=== PATIENT | female | born 1950 | race Caucasian/White ===

== ENCOUNTER → 2018-10-14 10:53 | Outpatient (CLI) | payer MEDICARE, OTHER, SELFPAY ==
--- NOTE | 2018-10-14 | DI.MG.S_ITS ---
BILATERAL DIGITAL SCREENING MAMMOGRAM 3D/2D WITH CAD: 10/14/2018 CLINICAL: Routine screening. Comparison is made to exams dated: 09/29/2017 mammogram, 09/20/2016 mammogram, and 09/18/2015 mammogram - [facility]. There are scattered fibroglandular elements in both breasts. Current study was also evaluated with a Computer Aided Detection (CAD) system. No significant masses, calcifications, or other findings are seen in either breast. There has been no significant interval change. IMPRESSION: NEGATIVE There is no mammographic evidence of malignancy. A 1 year screening mammogram is recommended. This exam was interpreted at Station ID: [id number]. NOTE: For mammograms, a report in lay terms will be sent to the patient. Approximately 15% of breast malignancies will not be visualized mammographically. In the management of a palpable breast mass, a negative mammogram must not discourage biopsy of a clinically suspicious lesion. Electronically Signed By: Smita gray/sudhir:10/16/2018 15:59:47 letter sent: Normal Exam ACR BI-RADS Category 1: Negative 3341F
== END ==
PROVIDERS: PCP Physician Assistant; Visit Provider Physician Assistant
DX: Z12.31 Encounter for screening mammogram for malignant neoplasm of breast (principal)
CPT/HCPCS: 77063; 77067

== ENCOUNTER → 2019-10-26 14:56 | Outpatient (CLI) | payer MEDICARE, OTHER, SELFPAY ==
--- NOTE | 2019-10-26 | DI.MG.S_ITS ---
BILATERAL DIGITAL SCREENING MAMMOGRAM 3D/2D WITH CAD: 10/26/2019 CLINICAL: Routine screening. Comparison is made to exams dated: 10/14/2018 mammogram, 09/29/2017 mammogram, and 09/20/2016 mammogram - [facility]. There are scattered fibroglandular elements in both breasts. Current study was also evaluated with a Computer Aided Detection (CAD) system. No significant masses, calcifications, or other findings are seen in either breast. There has been no significant interval change. IMPRESSION: NEGATIVE There is no mammographic evidence of malignancy. A 1 year screening mammogram is recommended. This exam was interpreted at Station ID: [id number]. NOTE: For mammograms, a report in lay terms will be sent to the patient. Approximately 15% of breast malignancies will not be visualized mammographically. In the management of a palpable breast mass, a negative mammogram must not discourage biopsy of a clinically suspicious lesion. Electronically Signed By: Vern Uribe M.D. at/sudhir:10/26/2019 15:48:11 letter sent: Normal Exam ACR BI-RADS Category 1: Negative 3341F
== END ==
PROVIDERS: PCP Physician Assistant; Visit Provider Physician Assistant
DX: Z12.31 Encounter for screening mammogram for malignant neoplasm of breast (principal)
CPT/HCPCS: 77063; 77067

== ENCOUNTER 2020-08-11 12:33 | Emergency (ER) | payer MEDICARE, OTHER, SELFPAY ==
[2020-08-11 12:39] VITALS: BP 149/65; PULSE 95; RESP 16; TEMP 37.3; O2SAT 96; BMI 30.1
--- NOTE | 2020-08-11 13:19 | ED.FEVER ---
HPI - Fever <Andra MaxwellSHAHRZAD - Last Filed: 08/11/20 20:39> General Chief Complaint: Fever Stated Complaint: Fever, Tired, Chills, Night Sweats Time Seen by Provider: 08/11/20 12:57 Source: patient Mode of arrival: Ambulatory History of Present Illness HPI Narrative: 70-year-old female with a history of asthma, hypertension, depression, and spinal fusion presents emergency department complaining of an intermittent low-grade fever over the past 24 hours. 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 She states her temperature has been 99.1-99.8F, today it was 100.0F. She reports occasional sweating and increased fatigue. She denies any cough, shortness of breath, rhinorrhea, sore throat, nausea, vomiting, diarrhea, dysuria, flank pain, or any other concerns. Related Data Home Medications Medication Instructions Recorded Confirmed ASCORBIC ACID (VITAMIN C 1,000 mg PO Q DAY #0 05/04/12 08/01/19 (CHEWABLE)) Magnesium/Pyridoxine (#MAGNESIUM & 1 tab PO Q DAY #0 05/04/12 08/01/19 B6 250 MG-125 MG) VIT WITH MINERALS (#D3PLUS) 1,000 cap PO Q DAY #0 05/04/12 08/01/19 lisinopril 20 mg PO QDAY #0 02/21/17 08/01/19 VITAMIN D (Vitamin D3) 4,000 u PO QDAY #0 05/16/17 08/01/19 [FLAX SEED OIL] 1,400 mg PO QDAY #0 05/16/17 08/01/19 albuterol sulfate [Proventil HFA] 2 puff INH PRN #0 05/16/17 08/01/19 calcium citrate-vitamin D3 1 tab PO QDAY #0 05/16/17 08/01/19 [Citracal + D Maximum] cetirizine 10 mg PO QDAY #0 05/16/17 08/01/19 clobetasol 0.05 % TOPICAL TID #0 05/16/17 08/01/19 clobetasol-emollient 1 rosalba TOPICAL BID PRN #0 05/16/17 08/01/19 latanoprost 1 drp OU HS #0 05/16/17 08/01/19 ranitidine HCl [Zantac] 150 mg PO QDAY #0 05/16/17 08/01/19 triamcinolone acetonide 1 rosalba TOPICAL BID PRN #0 05/16/17 08/01/19 vitamin B complex [B 1 tab PO QDAY #0 05/16/17 08/01/19 Complex-Vitamin B12] Previous Rx's Medication Instructions Recorded fluoxetine 20 mg PO Q DAY #30 06/19/12 CHOLESTYRAMINE (#CHOLESTYRAMINE) 4 gm PO Q DAY #378 10/16/12 alprazolam 0.25 mg PO Q8HP #90 01/19/13 estradiol 1 mg PO QDAY #90 06/12/13 oxycodone 1 - 2 tab PO Q4HP PRN #45 tab 05/27/17 Allergies Allergy/AdvReac Type Severity Reaction Status Date / Time benzocaine [BENZOCAINE] Allergy Severe (DENTAL) Verified 08/01/19 15:38 GUMS TURNED BLACK AND SLOUGHED OFF Review of Systems <SHAHRZAD Dela Cruz - Last Filed: 08/11/20 20:39> Review of Systems Narrative: REVIEW OF SYSTEMS: GENERAL: Reports fatigue and low-grade ?fevers ?, see HPI. HENT: No head trauma or hearing loss. EYES: No loss of vision, double vision, eye pain, irritation or discharge. CARDIOVASCULAR: No chest pain or syncope. RESPIRATORY: No shortness of breath. GASTROINTESTINAL: No nausea, vomiting, diarrhea, or constipation. MUSCULOSKELETAL: No weakness or injury. INTEGUMENTARY: No rash, lesions, or pruritus. NEURO: No memory loss, or confusion. Patient History <SHAHRZAD Dela Cruz - Last Filed: 08/11/20 20:39> Medical History Cough (Acute) Social History Smoking Status: Never smoker Smoking Status: Never smoker alcohol intake frequency: 0-2 drinks per day Substance Use Type: does not use Exam <SHAHRZAD Dela Cruz - Last Filed: 08/11/20 20:39> Initial Vital Signs Initial Vital Signs: Vital Signs Temperature 99.1 F 08/11/20 12:39 Pulse Rate 95 H 08/11/20 12:39 Respiratory Rate 16 08/11/20 12:39 Blood Pressure 149/65 H 08/11/20 12:39 Pulse Oximetry 96 08/11/20 12:39 PHYSICAL EXAMINATION: GENERAL: Well groomed, alert, and cooperative. Well-appearing 72-year-old female, answers questions appropriately and promptly.. HENT: Normocephalic, atraumatic. EYES: Conjunctiva pink, sclera white, no periorbital swelling. No discharge. CHEST: Normal to inspection and without deformities. CARDIOVASCULAR: S1 and S2 sounds normal. Regular rate and rhythm, no murmurs, clicks, or bruits. RESPIRATORY: Normal respiratory rate, trachea midline, airway patent. No stridor, nasal flaring or accessory muscle use. Able to speak in full sentences. Lungs are clear in all bang without wheeze, rhonchi, or crackles. MUSCULOSKELETAL: Normal gait and coordination. Equal tone and mass bilaterally. EXTREMITIES: Moves all extremities. SKIN: Warm, dry, soft, appropriate color for ethnicity. No lesions, rashes, or wounds to visualized areas. NEURO: Alert and Oriented X 3. Good coordination. No ataxia or cognitive issues. PSYCH: Appropriate affect and mood. <Martir Sanders MD - Last Filed: 08/12/20 18:06> Initial Vital Signs Initial Vital Signs: Vital Signs Temperature 99.1 F 08/11/20 12:39 Pulse Rate 95 H 08/11/20 12:39 Respiratory Rate 16 08/11/20 12:39 Blood Pressure 149/65 H 08/11/20 12:39 Pulse Oximetry 96 08/11/20 12:39 Course <SHAHRZAD Dela Cruz - Last Filed: 08/11/20 20:39> Orders Ordered: ED Orders 08/11/20 13:30 COVID19 -ED/INPAT/OR/L&D Stat Influenza A & B (PCR) Stat Vital Signs Vital signs: Vital Signs - 8 hr 08/11/20 12:39 08/11/20 15:04 Temperature 99.1 F Pulse Rate 95 H 85 Respiratory Rate 16 15 Blood Pressure 149/65 H 141/72 H Pulse Oximetry 96 99 <Martir Sanders MD - Last Filed: 08/12/20 18:06> Orders Ordered: ED Orders 08/11/20 13:30 COVID19 -ED/INPAT/OR/L&D Stat Influenza A & B (PCR) Stat Vital Signs Vital signs: Vital Signs - 8 hr 08/11/20 12:39 08/11/20 15:04 Temperature 99.1 F Pulse Rate 95 H 85 Respiratory Rate 16 15 Blood Pressure 149/65 H 141/72 H Pulse Oximetry 96 99 MDM - Fever <Andra SHAHRZAD Maxwell - Last Filed: 08/11/20 20:39> Medical Records Attestation: I reviewed the patient's medical records. Lab Data Attestation: I reviewed the patient's lab results. Labs: Lab Results 08/11/20 08/11/20 Range/Units 13:30 13:30 COVID-19 PCR Negative (Negative) Influenza A (RT-PCR) Flu a negative (NEGATIVE) Influenza B (RT-PCR) Flu b negative (NEGATIVE) Urine Dip Bedside Urine Glucose Negative Bedside Urine Bilirubin - Negative Bedside Urine Ketone - Negative Urine Specific [place] 1.030 Bedside Urine Occult Blood +/- Bedside Urine pH 6.0 Bedside Urine Protein - Negative Bedside Urine Urobilinogen - Negative Bedside Urine Nitrite - Negative Bedside Urine Leukocytes - Negative Esterase MDM Narrative Medical decision making narrative: 70-year-old female presenting to the emergency department for upper respiratory symptoms, reports of fever, and chills. I suspect patient's symptoms are most likely caused by upper respiratory tract infection. Less likely COVID or or influenza due to negative swabs. POC urine without any leukocytes, blood, or nitrates. Patient is well-appearing, hemodynamically stable, non tachycardic, afebrile, and oxygen then saturation is within normal limits. Lung sounds clear, less likely pneumonia due to these findings. Patient was encouraged to drink plenty of fluids and contact work about recent illness. Return precautions given for new or worsening symptoms. She agreed to plan of care verbalized understanding. <Martir Sanders MD - Last Filed: 08/12/20 18:06> Lab Data Labs: Lab Results 08/11/20 08/11/20 Range/Units 13:30 13:30 COVID-19 PCR Negative (Negative) Influenza A (RT-PCR) Flu a negative (NEGATIVE) Influenza B (RT-PCR) Flu b negative (NEGATIVE) Urine Dip Bedside Urine Glucose Negative Bedside Urine Bilirubin - Negative Bedside Urine Ketone - Negative Urine Specific [place] 1.030 Bedside Urine Occult Blood +/- Bedside Urine pH 6.0 Bedside Urine Protein - Negative Bedside Urine Urobilinogen - Negative Bedside Urine Nitrite - Negative Bedside Urine Leukocytes - Negative Esterase Discharge Plan Departure Patient Disposition: Home Clinical Impression: Upper respiratory infection Qualifiers: URI type: unspecified viral URI Qualified Code(s): J06.9 - Acute upper respiratory infection, unspecified Discharge Date/Time: 08/11/20 15:04 Instructions: DI for Viral Upper Respiratory Infection -- Adult Activity Restrictions/Additional Instructions: Thank you for entrusting me with your care today. As discussed, your COVID-19, influenza and urine test are negative for any signs of infection. I suspect this is most likely a viral infection. Take Tylenol as needed for pain and fever, drink plenty of fluid. Follow-up with your PCP in the next week if symptoms continue. Return emergency department for any new or worsening symptoms. Prescriptions: No Action VIT WITH MINERALS (#D3PLUS) 1,000 cap PO Q DAY Qty: 0 RF: 0 ASCORBIC ACID (VITAMIN C (CHEWABLE)) 1,000 mg PO Q DAY Qty: 0 RF: 0 Magnesium/Pyridoxine (#MAGNESIUM & B6 250 MG-125 MG) 1 tab PO Q DAY Qty: 0 RF: 0 fluoxetine 20 MG tablet 20 mg PO Q DAY Qty: 30 RF: 11 CHOLESTYRAMINE (#CHOLESTYRAMINE) 4 gm PO Q DAY Qty: 378 RF: 11 alprazolam 0.25 MG tablet 0.25 mg PO Q8HP Qty: 90 RF: 0 estradiol 1 MG tablet 1 mg PO QDAY Qty: 90 RF: 3 lisinopril 20 MG tablet 20 mg PO QDAY Qty: 0 RF: 0 albuterol sulfate [Proventil HFA] 90 MCG/PUFF HFA aerosol inhaler 2 puff INH PRNQty: 0 RF: 0 vitamin B complex [B Complex-Vitamin B12] 1 EACH tablet 1 tab PO QDAY Qty: 0 RF: 0 calcium citrate-vitamin D3 [Citracal + D Maximum] 1,500 MG/250 IU tablet 1 tab PO QDAY Qty: 0 RF: 0 VITAMIN D (Vitamin D3) 4,000 u PO QDAY Qty: 0 RF: 0 [FLAX SEED OIL] 1,400 mg PO QDAY Qty: 0 RF: 0 cetirizine 10 MG tablet 10 mg PO QDAY Qty: 0 RF: 0 ranitidine HCl [Zantac] 150 MG tablet 150 mg PO QDAY Qty: 0 RF: 0 triamcinolone acetonide 0.1 % cream 1 rosalba Topical BID PRNQty: 0 RF: 0 clobetasol-emollient 0.05 % cream 1 rosalba Topical BID PRNQty: 0 RF: 0 clobetasol 0.05 % solution 0.05 % Topical TID Qty: 0 RF: 0 latanoprost 0.005 % drops 1 drp OU HS Qty: 0 RF: 0 oxycodone 5 MG tablet 1 - 2 tab PO Q4HP PRNQty: 45 RF: 0 Referrals: Susan Stanford PA-C [Primary Care Provider] - <Martir Sanders MD - Last Filed: 08/12/20 18:06> Cosign ED Attending Cosignature Attestation: I was immediately available in the department for consultation. This documentation has been reviewed and I agree with assessment and plan. Supervised by Martir Sanders MD
[2020-08-11 14:10] LABS: Influenza A - CEPHEID Flu A NEGATIVE (NEGATIVE); Influenza B - CEPHEID Flu B NEGATIVE (NEGATIVE)
[2020-08-11 14:31] LABS: COVID19 -Nasal RAPID Negative (Negative)
[2020-08-11 15:04] VITALS: BP 141/72; PULSE 85; RESP 15; O2SAT 99
== END 2020-08-11 15:04 | disposition home or self-care (01) ==
PROVIDERS: Emergency Provider Nurse Practitioner; PCP Physician Assistant
DX: J06.9 Acute upper respiratory infection, unspecified (principal); R50.9 Fever, unspecified
CPT/HCPCS: 81003; 87502; 87635; 99282

== ENCOUNTER → 2020-08-19 11:05 | Outpatient (CLI) | payer MEDICARE, OTHER, SELFPAY ==
--- NOTE | 2020-08-19 | DI.RAD.S_ITS ---
PROCEDURE: XR LUMBAR SPINE 2-3V INDICATIONS: LUMBAR RADICULOPATHY, NUMBNESS OF RIGHT FOOT TECHNIQUE: 3 views of the lumbar spine were acquired. COMPARISON: None. FINDINGS: Bones: 5 [id number] vertebrae are present. There is abnormal bony alignment at L5-S1 where grade 2 anterolisthesis of L5 is present, associated with bilateral pars interarticularis defects at the L5 level. Additionally, there is a [id number] degree of convex leftward scoliosis centered at the middle 3rd of the lumbosacral spine, calculated by Jonas angle technique at 14.4 degrees. No vertebral body compression fractures. No suspicious bony lesions. Degenerative disc disease on the lateral view is quite severe at L5-S1 associated with chronic subluxation and facet osteoarthritis bilaterally. Soft tissues: Overlying bowel gas pattern is normal. No suspicious soft tissue calcifications. 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 Additionally, 14.4 degree convex leftward scoliosis is present centered on the L3 level of the LS spine. No trauma found. Dictated by: Kuldip Sarkar M.D. on 08/19/2020 at 12:32 Approved by: Kuldip Sarkar M.D. on 08/19/2020 at 12:34
== END ==
PROVIDERS: PCP Physician Assistant; Referring Provider Physician Assistant; Visit Provider Physician Assistant
DX: M51.17 Intervertebral disc disorders with radiculopathy, lumbosacral region (principal); M47.27 Other spondylosis with radiculopathy, lumbosacral region; M43.17 Spondylolisthesis, lumbosacral region; M41.87 Other forms of scoliosis, lumbosacral region; R20.0 Anesthesia of skin; E03.9 Hypothyroidism, unspecified; D47.2 Monoclonal gammopathy; R73.01 Impaired fasting glucose; E53.8 Deficiency of other specified B group vitamins; I10 Essential (primary) hypertension; E78.5 Hyperlipidemia, unspecified
CPT/HCPCS: 72100; 80053; 80061; 82607; 83036; 84155; 84165; 84443; 85025

== ENCOUNTER → 2020-08-19 15:31 | Outpatient (ROUT) | payer MEDICARE, OTHER, SELFPAY ==
[2020-08-19 15:55] LABS: Add Manual Diff / Slide Review NO; Basophils Absolute Auto 100 /uL (0-100); Basophils Percent Auto 0.8 % (0-2); Eosinophils Absolute Auto 200 /uL (0-450); Eosinophils Percent Auto 2.8 % (2-4); Hematocrit 38.8 % (36-46); Hemoglobin 13.1 g/dL (12.0-16.0); Lymphocytes Absolute Auto 3100 /uL (1100-4500); Lymphocytes Percent Auto 43.8 % (25-40); Mean Corpuscular HGB Conc 33.8 % (30-36); Mean Corpuscular Hemoglobin 32.4 PG (26-34); Monocytes Absolute Auto 600 /uL (0-900); Monocytes Percent Auto 8.9 % (3-14); Neutrophils Absolute Auto 3100 /uL (1500-7000); Neutrophils Percent Auto 43.7 % (50-75); Platelet Count 232 X10^3/uL (150-400); Red Blood Cell Count 4.04 X10^6/uL (4.0-5.2); Red Cell Distribution Width 13.2 % (11.6-14.8)
[2020-08-19 15:57] LABS: Hemoglobin A1C% w Est Avg Glu 5.6 % (4.0-6.0)
[2020-08-19 16:00] LABS: Alanine Aminotransferase 36 IU/L (<35); Albumin 4.3 g/dL (3.5-5.0); Albumin Globulin Ratio 1.5 (1.0-2.8); Alkaline Phosphatase 108 U/L (38-126); Aspartate Aminotransferase 81 IU/L (14-36); BUN Creatinine Ratio 33.9 (6-22); Bilirubin Total 0.4 mg/dL (0.2-1.3); Blood Urea Nitrogen 19 mg/dL (7-17); Calcium 9.4 mg/dL (8.4-10.2); Carbon Dioxide 29 mmol/L (22-32); Chloride 99 mmol/L (98-107); Cholesterol 190 mg/dL (140-199); Estimated Glomerular Filt Rate > 60.0 mL/min (>60); Globulin 2.8 g/dL (1.7-4.1); Glucose 103 mg/dL (80-110); HEMOLYSIS < 15 (0-50); Potassium 4.7 mmol/L (3.4-5.1); Sodium 134 mmol/L (137-145); Total Protein 7.1 g/dL (6.3-8.2); Triglycerides 224 mg/dL (35-150)
[2020-08-19 16:08] LABS: HDL Cholesterol 114 mg/dL (40-60); LDL Cholesterol Calculated 31 mg/dL (<100)
[2020-08-19 16:28] LABS: TSH w/ Reflex to FT4 1.17 uIU/mL (0.47-4.68)
[2020-08-19 16:44] LABS: Vitamin B12 550 pg/mL (239-931)
[2020-08-20 15:09] LABS: Albumin 3.8 g/dL (2.9-4.4); Alpha-1-Globulin 0.3 g/dL (0.0-0.4); Alpha-2-Globulin 0.8 g/dL (0.4-1.0); Gamma Globulin 0.9 g/dL (0.4-1.8); Globulin Total 2.9 g/dL (2.2-3.9); Protein, Total 6.7 g/dL (6.0-8.5)
== END ==
PROVIDERS: PCP Physician Assistant; Visit Provider Physician Assistant
DX: E03.9 Hypothyroidism, unspecified (principal); D47.2 Monoclonal gammopathy; R73.01 Impaired fasting glucose; E53.8 Deficiency of other specified B group vitamins; I10 Essential (primary) hypertension; E78.5 Hyperlipidemia, unspecified
CPT/HCPCS: 80053; 80061; 82607; 83036; 84155; 84165; 84443; 85025

== ENCOUNTER → 2020-10-27 15:47 | Outpatient (CLI) | payer MEDICARE, OTHER, SELFPAY ==
--- NOTE | 2020-10-27 | DI.MG.S_ITS ---
BILATERAL DIGITAL SCREENING MAMMOGRAM 3D/2D WITH CAD: 10/27/2020 CLINICAL: Routine screening. Comparison is made to exams dated: 10/26/2019 mammogram, 10/14/2018 mammogram, and 09/29/2017 mammogram - [facility]. There are scattered fibroglandular elements in both breasts. Current study was also evaluated with a Computer Aided Detection (CAD) system. No significant masses, calcifications, or other findings are seen in either breast. There has been no significant interval change. IMPRESSION: NEGATIVE There is no mammographic evidence of malignancy. A 1 year screening mammogram is recommended. This exam was interpreted at Station ID: [id number]. NOTE: For mammograms, a report in lay terms will be sent to the patient. Approximately 15% of breast malignancies will not be visualized mammographically. In the management of a palpable breast mass, a negative mammogram must not discourage biopsy of a clinically suspicious lesion. Electronically Signed By: Enrique horvath/sudhir:10/27/2020 17:54:41 letter sent: Normal Exam ACR BI-RADS Category 1: Negative 3341F
== END ==
PROVIDERS: PCP Physician Assistant; Referring Provider Physician Assistant; Visit Provider Physician Assistant
DX: Z12.31 Encounter for screening mammogram for malignant neoplasm of breast (principal)
CPT/HCPCS: 77063; 77067

== ENCOUNTER → 2020-12-05 10:16 | Outpatient (CLI) | payer MEDICARE, OTHER, SELFPAY ==
[2020-12-05] MEDS: COVID-19 VACC #1, MRNA(MOD) 100 MCG/0.5 ML VIAL IM (10:23)
== END ==
PROVIDERS: PCP Physician Assistant; Visit Provider Internal Medicine
DX: Z23 Encounter for immunization (principal)
CPT/HCPCS: 0011A; 91301

== ENCOUNTER → 2021-01-01 12:52 | Outpatient (CLI) | payer MEDICARE, OTHER, SELFPAY ==
[2021-01-01] MEDS: COVID-19 VACC #2, MRNA(MOD) 100 MCG/0.5 ML VIAL IM (12:56)
== END ==
PROVIDERS: PCP Physician Assistant; Visit Provider Internal Medicine
DX: Z23 Encounter for immunization (principal)
CPT/HCPCS: 0012A; 91301

== ENCOUNTER → 2021-03-31 20:08 | Outpatient (ROUT) | payer MEDICARE, OTHER, SELFPAY ==
[2021-03-31 20:31] LABS: Add Manual Diff / Slide Review NO; Basophils Absolute Auto 0 /uL (0-100); Basophils Percent Auto 0.5 % (0-2); Eosinophils Absolute Auto 500 /uL (0-450); Eosinophils Percent Auto 5.6 % (2-4); Hematocrit 38.8 % (36-46); Hemoglobin 12.8 g/dL (12.0-16.0); Lymphocytes Absolute Auto 2200 /uL (1100-4500); Lymphocytes Percent Auto 26.6 % (25-40); Mean Corpuscular HGB Conc 32.9 % (30-36); Mean Corpuscular Hemoglobin 32.2 PG (26-34); Mean Corpuscular Volume 97.8 fL (80-100); Monocytes Absolute Auto 600 /uL (0-900); Monocytes Percent Auto 6.8 % (3-14); Neutrophils Absolute Auto 5000 /uL (1500-7000); Neutrophils Percent Auto 60.5 % (50-75); Platelet Count 212 X10^3/uL (150-400); Red Blood Cell Count 3.97 X10^6/uL (4.0-5.2); Red Cell Distribution Width 13.1 % (11.6-14.8); White Blood Cell Count 8.2 X10^3/uL (4.5-11.0)
[2021-03-31 20:37] LABS: Alanine Aminotransferase 31 IU/L (<35); Albumin 4.3 g/dL (3.5-5.0); Albumin Globulin Ratio 1.6 (1.0-2.8); Alkaline Phosphatase 113 U/L (38-126); Aspartate Aminotransferase 81 IU/L (14-36); Bilirubin Total 0.5 mg/dL (0.2-1.3); Blood Urea Nitrogen 17 mg/dL (7-17); Calcium 9.6 mg/dL (8.4-10.2); Carbon Dioxide 27 mmol/L (22-32); Chloride 99 mmol/L (98-107); Cholesterol 213 mg/dL (140-199); Estimated Glomerular Filt Rate > 60.0 mL/min (>60); Globulin 2.7 g/dL (1.7-4.1); Glucose 96 mg/dL (80-110); HEMOLYSIS < 15 (0-50); Potassium 4.4 mmol/L (3.4-5.1); Sodium 134 mmol/L (137-145); Triglycerides 208 mg/dL (35-150)
[2021-03-31 20:50] LABS: HDL Cholesterol 146 mg/dL (40-60); LDL Cholesterol Calculated 25 mg/dL (<100)
== END ==
PROVIDERS: PCP Physician Assistant; Visit Provider Physician Assistant
DX: Z01.818 Encounter for other preprocedural examination (principal); I10 Essential (primary) hypertension; E78.5 Hyperlipidemia, unspecified
CPT/HCPCS: 80053; 80061; 85025

== ENCOUNTER 2021-05-11 00:16 | Emergency (ER) | payer MEDICARE, OTHER, SELFPAY ==
[2021-05-11 00:20] VITALS: BP 183/98; PULSE 87; RESP 20; TEMP 36.7; O2SAT 100
--- NOTE | 2021-05-11 01:46 | ED.BACK ---
HPI - Back Pain/Injury General Chief Complaint: Back Pain/Injury Stated Complaint: Back Pain Time Seen by Provider: 05/11/21 00:26 Source: patient History of Present Illness HPI Narrative: The patient underwent L5-L1 laminectomy 6 days ago. She was initially on oxycodone, and wean down to ibuprofen. She has since then required oxycodone again. She comes in by EMS because of left low back pain radiating to the left lateral leg. This seems a started after prolonged car trip about 3 days ago. She has no edema in the lower extremities, no chest pain or dyspnea. She describes the pain in her left leg as a zing. She has previously had right leg numbness/weakness. She denies numbness in the left lateral foot and the left great toe. She has no abdominal pain, no nausea, vomiting diarrhea. She has no urinary complaints. Related Data Home Medications Medication Instructions Recorded Confirmed ASCORBIC ACID (VITAMIN C 1,000 mg PO Q DAY #0 05/04/12 08/01/19 (CHEWABLE)) Magnesium/Pyridoxine (#MAGNESIUM & 1 tab PO Q DAY #0 05/04/12 08/01/19 B6 250 MG-125 MG) VIT WITH MINERALS (#D3PLUS) 1,000 cap PO Q DAY #0 05/04/12 08/01/19 lisinopril 20 mg tablet 20 mg PO QDAY #0 02/21/17 08/01/19 VITAMIN D (Vitamin D3) 4,000 u PO QDAY #0 05/16/17 08/01/19 [FLAX SEED OIL] 1,400 mg PO QDAY #0 05/16/17 08/01/19 albuterol sulfate 90 mcg/actuation 2 puff INH PRN #0 05/16/17 08/01/19 aerosol inhaler (Proventil HFA) calcium citrate 315 mg 1 tab PO QDAY #0 05/16/17 08/01/19 calcium-vitamin D3 6.25 mcg (250 unit) tablet (Citracal + Vitamin D Maximum) cetirizine 10 mg tablet 10 mg PO QDAY #0 05/16/17 08/01/19 clobetasol 0.05 % scalp solution 0.05 % TOPICAL TID #0 05/16/17 08/01/19 clobetasol-emollient 0.05 % 1 rosalba TOPICAL BID PRN #0 05/16/17 08/01/19 topical cream latanoprost 0.005 % eye drops 1 drp OU HS #0 05/16/17 08/01/19 ranitidine HCl 150 mg tablet 150 mg PO QDAY #0 05/16/17 08/01/19 (Zantac) triamcinolone acetonide 0.1 % 1 rosalba TOPICAL BID PRN #0 05/16/17 08/01/19 topical cream vitamin B complex (B 1 tab PO QDAY #0 05/16/17 08/01/19 Complex-Vitamin B12) Previous Rx's Medication Instructions Recorded fluoxetine 20 mg tablet 20 mg PO Q DAY #30 06/19/12 CHOLESTYRAMINE (#CHOLESTYRAMINE) 4 gm PO Q DAY #378 10/16/12 alprazolam 0.25 mg tablet 0.25 mg PO Q8HP #90 01/19/13 estradiol 1 mg tablet 1 mg PO QDAY #90 06/12/13 oxycodone 5 mg tablet 1 - 2 tab PO Q4HP PRN #45 tab 05/27/17 gabapentin 100 mg capsule 100 mg PO TID #60 cap 05/11/21 Allergies Allergy/AdvReac Type Severity Reaction Status Date / Time benzocaine [BENZOCAINE] Allergy Severe (DENTAL) Verified 08/01/19 15:38 GUMS TURNED BLACK AND SLOUGHED OFF Review of Systems Constitutional Constitutional: Reports as per HPI, Denies body ache(s) and Denies fever(s) Cardiovascular Cardiovascular: Denies chest pain and Denies dyspnea Respiratory Respiratory: Denies cough and Denies dyspnea Gastrointestinal Gastrointestinal: Denies abdominal pain, Reports diarrhea, Denies nausea and Denies vomiting Genitourinary Genitourinary: Denies dysuria, Denies urinary incontinence and Denies urinary urgency Musculoskeletal Musculoskeletal: Reports as per HPI Neurologic Neurologic: Reports as per HPI, Denies confusion and Denies memory loss Psychiatric Psychiatric: Denies confusion, Denies depression and Denies memory loss Patient History Medical History (Updated 05/11/21 @ 03:07 by Moreno Skaggs MD) Cough Social History Smoking Status: Never smoker Smoking Status: Never smoker alcohol intake frequency: 0-2 drinks per day Substance Use Type: does not use Exam Initial Vital Signs Initial Vital Signs: Vital Signs Temperature 98.0 F 05/11/21 00:20 Pulse Rate 87 05/11/21 00:20 Respiratory Rate 20 05/11/21 00:20 Blood Pressure 183/98 H 05/11/21 00:20 Pulse Oximetry 100 05/11/21 00:20 Const General: cooperative, healthy appearing and comfortable [facility] Head: normocephalic and atraumatic Resp Auscultation: clear to auscultation bilaterally Cardio Rate: regular rate Rhythm: regular rhythm Heart Sounds: S1 normal, S2 normal and no murmurs GI Other: Obese, soft and nontender. Ecchymoses around the left inguinal incision site. The wound is healing well. There is slight edema, no erythema and no warmth. Ecchymosis extends around the left flank. Back/Spine/Pelvis Other: There is a left lumbar incision site. The wound is healing well, local ecchymosis. Mild edema. No induration or fluctuance. No erythema or warmth. Skin General: no rashes or lesions noted (Other than noted above) Neuro General: patient alert, patient awake, patient oriented x3 and no focal motor deficits Extrem Other: Motor exam lower extremities is normal. There is no weakness. She has a left L5 light touch deficit, particularly around the left ankle. Psych Mental Status: mental status grossly normal Course Course Course Narrative: The patient is postop laminectomy. There is ecchymoses around the wound sites, no evidence of infection. Symptoms suggest a left sciatica. NSAIDs can be utilized, I am avoiding prednisone due to her postop status. I will start her on gabapentin. She should recheck with her doctor this week. Vital Signs Vital signs: Vital Signs - 8 hr 05/11/21 00:20 Temperature 98.0 F Pulse Rate 87 Respiratory Rate 20 Blood Pressure 183/98 H Pulse Oximetry 100 Discharge Plan Departure Patient Disposition: Home Clinical Impression: Left sciatic nerve pain Instructions: DI for Sciatica Activity Restrictions/Additional Instructions: Continue using oxycodone and Motrin as necessary. Gabapentin 100 mg 3 times daily. Follow-up with your doctor in about 5 days. If you tolerating the gabapentin, your doctor will likely increase the dose if you have ongoing pain. Return to the ER as necessary. Prescriptions: New gabapentin 100 mg capsule 100 mg PO TID Qty: 60 RF: 0 No Action VIT WITH MINERALS (#D3PLUS) 1,000 cap PO Q DAY Qty: 0 RF: 0 ASCORBIC ACID (VITAMIN C (CHEWABLE)) 1,000 mg PO Q DAY Qty: 0 RF: 0 Magnesium/Pyridoxine (#MAGNESIUM & B6 250 MG-125 MG) 1 tab PO Q DAY Qty: 0 RF: 0 fluoxetine 20 MG tablet 20 mg PO Q DAY Qty: 30 RF: 11 CHOLESTYRAMINE (#CHOLESTYRAMINE) 4 gm PO Q DAY Qty: 378 RF: 11 alprazolam 0.25 MG tablet 0.25 mg PO Q8HP Qty: 90 RF: 0 estradiol 1 MG tablet 1 mg PO QDAY Qty: 90 RF: 3 lisinopril 20 MG tablet 20 mg PO QDAY Qty: 0 RF: 0 albuterol sulfate [Proventil HFA] 90 MCG/PUFF HFA aerosol inhaler 2 puff INH PRNQty: 0 RF: 0 vitamin B complex [B Complex-Vitamin B12] 1 EACH tablet 1 tab PO QDAY Qty: 0 RF: 0 calcium citrate-vitamin D3 [Citracal + D Maximum] 1,500 MG/250 IU tablet 1 tab PO QDAY Qty: 0 RF: 0 VITAMIN D (Vitamin D3) 4,000 u PO QDAY Qty: 0 RF: 0 [FLAX SEED OIL] 1,400 mg PO QDAY Qty: 0 RF: 0 cetirizine 10 MG tablet 10 mg PO QDAY Qty: 0 RF: 0 ranitidine HCl [Zantac] 150 MG tablet 150 mg PO QDAY Qty: 0 RF: 0 triamcinolone acetonide 0.1 % cream 1 rosalba Topical BID PRNQty: 0 RF: 0 clobetasol-emollient 0.05 % cream 1 rosalba Topical BID PRNQty: 0 RF: 0 clobetasol 0.05 % solution 0.05 % Topical TID Qty: 0 RF: 0 latanoprost 0.005 % drops 1 drp OU HS Qty: 0 RF: 0 oxycodone 5 MG tablet 1 - 2 tab PO Q4HP PRNQty: 45 RF: 0 Referrals: Susan Stanford PA-C [Primary Care Provider] -
[2021-05-11] MEDS: GABAPENTIN 100 MG CAPSULE PO (03:02)
[2021-05-11] MEDS: KETOROLAC 30 MG/ML VIAL 15 MG IM (03:02)
--- NOTE | 2021-05-11 03:17 | PC.NURSE ---
Post surgical pt sp laminectomy with intermittent left leg pain/spasms
[2021-05-11 03:19] VITALS: BP 152/69; PULSE 73; RESP 16; O2SAT 97
== END 2021-05-11 03:26 | disposition home or self-care (01) ==
PROVIDERS: Emergency Provider Emergency Medicine; PCP Physician Assistant
DX: M54.32 Sciatica, left side (principal)
CPT/HCPCS: 96372; 99283; 99284; J1885

== ENCOUNTER 2021-05-12 12:23 | Emergency (ER) | payer MEDICARE, OTHER, SELFPAY ==
[2021-05-12] VITALS (12 sets, daily range): BP systolic 149–171; BP diastolic 68–75; PULSE 66–82; RESP 14–16; TEMP 36.7–36.8; O2SAT 96–99
[2021-05-12 14:06] LABS: Add Manual Diff / Slide Review NO; Basophils Absolute Auto 100 /uL (0-100); Basophils Percent Auto 0.6 % (0-2); Eosinophils Absolute Auto 600 /uL (0-450); Eosinophils Percent Auto 6.6 % (2-4); Hematocrit 35.8 % (36-46); Hemoglobin 11.8 g/dL (12.0-16.0); Lymphocytes Absolute Auto 1700 /uL (1100-4500); Lymphocytes Percent Auto 17.1 % (25-40); Mean Corpuscular HGB Conc 33.1 % (30-36); Mean Corpuscular Hemoglobin 32.2 PG (26-34); Mean Corpuscular Volume 97.2 fL (80-100); Monocytes Absolute Auto 700 /uL (0-900); Neutrophils Absolute Auto 6700 /uL (1500-7000); Neutrophils Percent Auto 68.7 % (50-75); Platelet Count 305 X10^3/uL (150-400); Red Blood Cell Count 3.68 X10^6/uL (4.0-5.2); Red Cell Distribution Width 13.1 % (11.6-14.8); White Blood Cell Count 9.8 X10^3/uL (4.5-11.0)
[2021-05-12 14:17] LABS: Lactate (Lactic Acid) 1.1 mmol/L (0.7-2.1)
[2021-05-12 14:18] LABS: Alanine Aminotransferase 61 IU/L (<35); Albumin 3.8 g/dL (3.5-5.0); Albumin Globulin Ratio 1.2 (1.0-2.8); Alkaline Phosphatase 274 U/L (38-126); Aspartate Aminotransferase 161 IU/L (14-36); BUN Creatinine Ratio 38.6 (6-22); Bilirubin Total 0.7 mg/dL (0.2-1.3); Blood Urea Nitrogen 17 mg/dL (7-17); Calcium 9.2 mg/dL (8.4-10.2); Carbon Dioxide 27 mmol/L (22-32); Chloride 104 mmol/L (98-107); Estimated Glomerular Filt Rate > 60.0 mL/min (>60); Globulin 3.1 g/dL (1.7-4.1); Glucose 116 mg/dL (80-110); HEMOLYSIS < 15 (0-50); Lipase 38 U/L (23-300); Sodium 137 mmol/L (137-145); Total Protein 6.9 g/dL (6.3-8.2)
--- NOTE | 2021-05-12 14:38 | DI.CT.S_ITS ---
PROCEDURE: CT LUMBAR SPINE WO/W CON INDICATIONS: s/p lumbar surgery for right sciatic, left leg pain TECHNIQUE: After the administration of intravenous Isovue contrast, 3 mm thick sections acquired through the levels of interest. Sagittal and coronal reformats were then constructed. For radiation dose reduction, the following was used: automated exposure control. COMPARISON: [facility], CR, XR LUMBAR SPINE 2-3V, 08/19/2020, 11:02. FINDINGS: There are postsurgical changes of anterior fixation at L5-S1 by means of anterior plate and screws. There are also postsurgical changes of posterior fixation at L5-S1 by means of left-sided pedicle screws and stabilization trent. Bilateral L5 pars defects redemonstrated. Anterolisthesis of L5 on S1 currently measures approximately 7 mm, decreased from approximately 9 mm on the preoperative examination from 08/19/2020. There is new lytic change in the superior and anterior S1 vertebral body. This could be iatrogenic related to some bone removal, versus lytic/resorptive change surrounding the hardware. No appreciable osseous fusion across the intervertebral disc space or amongst the posterior elements at this time. Pseudo bulge related to the listhesis flattens the ventral thecal sac and may result in some mild displacement of the descending S1 nerve roots. Neural foraminal height loss and distortion related to the disc height loss and listhesis produces severe bilateral neural foraminal narrowing similar to the prior study. There is flattening of the bilateral exiting L5 nerve roots. At L4-L5, diffuse disc bulge flattens the ventral thecal sac. Foraminal components of the disc bulge leads to mild neural foraminal narrowing in conjunction with facet hypertrophy. From T12-L1 through L3-4, no spinal canal stenosis or neural foraminal stenosis. Alignment is normal at these levels. Vertebral body heights maintained at these levels. Post-contrast images demonstrate no abnormal epidural enhancement or soft tissue enhancement. There is no fluid collection in the regional soft tissues. IMPRESSION: Postsurgical changes of L5-S1 anterior and posterior fixation. Improved anterolisthesis of L5 on S1 when compared with preoperative imaging. Some mild residual listhesis L5 on S1 combining with degenerative changes to produce mild-moderate subarticular zone stenosis and severe bilateral neural foraminal stenosis similar to the prior study. No acute complicating hardware feature or abnormal enhancement identified. Dictated by: Isael Merrill M.D. on 05/12/2021 at 16:40 Approved by: Isael Merrill M.D. on 05/12/2021 at 16:44
--- NOTE | 2021-05-12 15:03 | ED_ITS ---
HPI - Back Pain/Injury General Chief Complaint: Back Pain/Injury Stated Complaint: Surgery 05/04, unable to bear weight Time Seen by Provider: 05/12/21 14:20 Source: EMS Limitations: no limitations History of Present Illness HPI Narrative: This is a 71-year-old female comes emergency department with complaint of pain in her left lower extremity with weight-bearing. Patient states she had a lumbar fusion on 05/[address] [place] [address] Mg. Patient was seen here several days ago. She was given gabapentin which has had minimal improvement. Patient returns today with similar symptoms without improvement. She was in contact with her surgeon and they recommended to come to the office today. Patient and family states they were unable to get there and came here. Patient has not had any fevers or chills. No cold cough or kenneth estion. No nausea or vomiting. No bowel or bladder incontinence. Patient states the pain is her lower back almost in the SI region buttock and radiating down her leg. When she is lying flat she has minimal to no pain and is able to fully move her leg without issues. She denies weakness in the leg and states truly pain related. Patient states that when she stands or tries to sit she is in significant pain. She has been taking the gabapentin and oxycodone for pain management. Patient states she has not really been able to ambulate. When she was here with Dr. Skaggs she received Toradol and was able to ambulate enough to get into the house and get into bed without too much trouble. Patient states she has not had any changes to her incisions or signs of infection at that site. Related Data Home Medications Medication Instructions Recorded Confirmed ASCORBIC ACID (VITAMIN C 1,000 mg PO Q DAY #0 05/04/12 08/01/19 (CHEWABLE)) Magnesium/Pyridoxine (#MAGNESIUM & 1 tab PO Q DAY #0 05/04/12 08/01/19 B6 250 MG-125 MG) VIT WITH MINERALS (#D3PLUS) 1,000 cap PO Q DAY #0 05/04/12 08/01/19 lisinopril 20 mg tablet 20 mg PO QDAY #0 02/21/17 08/01/19 VITAMIN D (Vitamin D3) 4,000 u PO QDAY #0 05/16/17 08/01/19 [FLAX SEED OIL] 1,400 mg PO QDAY #0 05/16/17 08/01/19 albuterol sulfate 90 mcg/actuation 2 puff INH PRN #0 05/16/17 08/01/19 aerosol inhaler (Proventil HFA) calcium citrate 315 mg 1 tab PO QDAY #0 05/16/17 08/01/19 calcium-vitamin D3 6.25 mcg (250 unit) tablet (Citracal + Vitamin D Maximum) cetirizine 10 mg tablet 10 mg PO QDAY #0 05/16/17 08/01/19 clobetasol 0.05 % scalp solution 0.05 % TOPICAL TID #0 05/16/17 08/01/19 clobetasol-emollient 0.05 % 1 rosalba TOPICAL BID PRN #0 05/16/17 08/01/19 topical cream latanoprost 0.005 % eye drops 1 drp OU HS #0 05/16/17 08/01/19 ranitidine HCl 150 mg tablet 150 mg PO QDAY #0 05/16/17 08/01/19 (Zantac) triamcinolone acetonide 0.1 % 1 rosalba TOPICAL BID PRN #0 05/16/17 08/01/19 topical cream vitamin B complex (B 1 tab PO QDAY #0 05/16/17 08/01/19 Complex-Vitamin B12) Previous Rx's Medication Instructions Recorded fluoxetine 20 mg tablet 20 mg PO Q DAY #30 06/19/12 CHOLESTYRAMINE (#CHOLESTYRAMINE) 4 gm PO Q DAY #378 10/16/12 alprazolam 0.25 mg tablet 0.25 mg PO Q8HP #90 01/19/13 estradiol 1 mg tablet 1 mg PO QDAY #90 06/12/13 oxycodone 5 mg tablet 1 - 2 tab PO Q4HP PRN #45 tab 05/27/17 gabapentin 100 mg capsule 100 mg PO TID #60 cap 05/11/21 ketorolac 10 mg tablet 10 mg PO Q6H PRN 10 Days #10 tab 05/12/21 Allergies Allergy/AdvReac Type Severity Reaction Status Date / Time benzocaine [BENZOCAINE] Allergy Severe (DENTAL) Verified 05/12/21 12:35 GUMS TURNED BLACK AND SLOUGHED OFF Review of Systems Review of Systems ROS Unobtainable: All systems reviewed & are unremarkable except as noted in HPI and below Patient History Medical History Cough Social History Smoking Status: Never smoker Smoking Status: Never smoker alcohol intake frequency: 0-2 drinks per day Substance Use Type: does not use Exam Narrative Exam Narrative: GENERAL: Alert and oriented x three, female in mild distress. Patient is lying flat on the gurney. HEENT: Head normocephalic, atraumatic, EOMI, pupils reactive, face symmetric, moist mucous membranes NECK: Supple, full range of motion CARDIOVASCULAR: Regular rate and rhythm without murmurs, rubs or gallops. RESPIRATORY: Breath sounds equal bilaterally, no wheezes rales or rhonchi. ABDOMEN: Soft, nontender. Normoactive bowel sounds all 4 quadrants. No guarding or rebound, rigidity, no mass : No CVA tenderness BACK: No cervical, thoracic or lumbar vertebral point tenderness. Patient does have tenderness of the SI region, upper buttock she has a bruising but no significant hematoma that I can palpate. Patient has normal range of motion on the bed is able to roll herself from side to side with minimal issue. Patient's gait is not tested, initially. Muscle strength is 5/5 in lower extremities, patient has full range of motion of bilateral lower extremities without pain. She does have increased pain with a very high right leg raise or a 45 degree left leg raise, DTRs are 2/4 and lower extremities. Dorsalis pedis and tibialis pulses are 2+ and lower extremities. Sensation is intact in the lower extremities. Patient has normal color with no cyanosis, pallor other skin changes. Patient's incisions which are in the room groin as well as left lower lumbar region are clean dry and intact without any erythema or signs of infection. There is no drainage or foul odor and they are nontender to palpation. EXTREMITIES: Normal range of motion, no clubbing or edema. Neurovascularly intact NEUROLOGICAL: Cranial nerves II through XII grossly intact. Moving all extremities SKIN: Warm, dry, no petechiae, no rashes. Patient has left inguinal incision which appears clean dry and intact as well as a right lumbar incision which also appears clean dry and intact without any signs of infection. Initial Vital Signs Initial Vital Signs: Vital Signs Temperature 98.1 F 05/12/21 12:25 Pulse Rate 72 05/12/21 12:25 Respiratory Rate 14 05/12/21 12:25 Blood Pressure 160/75 H 05/12/21 12:25 Pulse Oximetry 99 05/12/21 12:25 Course Orders Ordered: ED Orders 05/12/21 13:50 Complete Blood Count AUTO DIFF Stat Comprehensive Metabolic Panel Stat Lactate (Lactic Acid) Stat Lipase Stat 05/12/21 14:38 CT lumbar spine wo/w con Stat Discontinued Medications Fluorescein Sodium (Fluorescein 1 Mg Strip) 1 mg EYE-LEFT NOW ONE Stop: 05/12/21 12:41 Last Admin: 05/12/21 12:41 Dose: Not Given Documented by: EUFEMIA Hydromorphone HCl (Hydromorphone 1 Mg Inj) 1 mg IV NOW ONE Stop: 05/12/21 17:13 Last Admin: 05/12/21 17:36 Dose: 1 mg Documented by: JANIE Ketorolac Tromethamine (Ketorolac 30 Mg/Ml Vial) 15 mg IV NOW ONE Stop: 05/12/21 18:31 Last Admin: 05/12/21 18:47 Dose: 15 mg Documented by: EUFEMIA Reevaluation(s) Reevaluation #1: Patient is lying on her stomach. She is able to move in the bed. She is quite uncomfortable trying to stand but had deferred any pain medic ations initially. Patient did ultimately take her home oral medications. Discussed with patient would like to try some pain medications IV here to see if this improves her symptoms. Still awaiting CT results. Reevaluation #2: CT results were obtained, spoke with Dr. Sparks who is covering for her orthopedic surgeon. At this time they would like to see her tomorrow in the office for [id number] evaluation. Patient initially feel she can get the re, after some discussion there is some back and forth between her and her about whether not the patient can reasonably go home tonight and get herself with him to the surgeon's office. Reevaluation #3: Discussed with patient I did recontact the Dr. Sparks. We can see if [facility] has bed and transfer for pain management overnight and evalua tion by Orthopedic surgery. At this time would be a non emergent transfer and would not be ED to ED. we discussed that I am happy to contact [facility] about arranging transfer for evaluation, pain management and continued the of care. After discussion between patient and her patient elected attempt to ambulate again and ultimately decided to return home. She was uncomfortable but able to ambulate with walker. Once again reiterated but would be happy to contact [place] but patient elects to return home at this time. All questions answered. Patient and family aware of return precautions. Prescription for Toradol was sent so she may have some additional pain management at home tonight as that seems to be the most helpful. Additional Reevaluation(s): Patient ambulated from department with the walker from ER room to car. Consultations Consultation #1: Dr. Sparks-who is covering for Dr. Mg her surgeon. Would very much like patient to be seen tomorrow in the office. Plan for pain management and outpatient follow-up. I did recontact Dr. Sparks after there was discussion about patient may not be able to manage your pain at home and be seen in the office. Um we did discuss that I can contact [facility] to see about bed availability for transfer for pain management and evaluation with Orthopedic surgery. We would hold patient here in the emergency department until bed availability occurred. Dr. Sparks is comfortable with this plan if necessary. If patient elects to return home and feels your pain is managed they will see your tomorrow in the office. Vital Signs Vital signs: Vital Signs - 8 hr 05/12/21 14:03 05/12/21 14:30 05/12/21 15:04 Pulse Rate 70 76 82 Respiratory Rate 16 Blood Pressure 149/72 H Pulse Oximetry 96 97 97 05/12/21 15:30 05/12/21 15:31 05/12/21 17:04 Pulse Rate 73 73 Respiratory Rate Blood Pressure 160/69 H Pulse Oximetry 98 98 98 05/12/21 17:30 05/12/21 17:56 05/12/21 18:00 Pulse Rate 73 69 71 Respiratory Rate 16 Blood Pressure 171/74 H 151/68 H Pulse Oximetry 99 98 98 05/12/21 18:30 Pulse Rate 66 Respiratory Rate Blood Pressure Pulse Oximetry 97 MDM - Back Pain/Injury Lab Data Result diagrams: 05/12/21 13:50 05/12/21 13:50 Labs: Lab Results 05/12/21 05/12/21 05/12/21 Range/Units 13:50 13:50 13:50 WBC 9.8 (4.5-11.0) X10^3/uL RBC 3.68 L (4.0-5.2) X10^6/uL Hgb 11.8 L (12.0-16.0) g/dL Hct 35.8 L (36-46) % MCV 97.2 (80-100) fL MCH 32.2 (26-34) PG MCHC 33.1 (30-36) % RDW 13.1 (11.6-14.8) % Plt Count 305 (150-400) X10^3/uL Neut % (Auto) 68.7 (50-75) % Lymph % (Auto) 17.1 L (25-40) % Mcdowell % (Auto) 7.0 (3-14) % Eos % (Auto) 6.6 H (2-4) % Baso % (Auto) 0.6 (0-2) % Neut # (Auto) 6700 (3983-9595) /uL Lymph # (Auto) 1700 (5380-4505) /uL Mcdowell # (Auto) 700 (0-900) /uL Eos # (Auto) 600 H (0-450) /uL Baso # (Auto) 100 (0-100) /uL Sodium 137 (137-145) mmol/L Potassium 4.0 (3.4-5.1) mmol/L Chloride 104 (98-107) mmol/L Carbon Dioxide 27 (22-32) mmol/L BUN 17 (7-17) mg/dL Creatinine 0.44 L (0.52-1.04) mg/dL Estimated GFR > 60.0 (>60) mL/min BUN/Creatinine Ratio 38.6 H (6-22) Glucose 116 H (80-110) mg/dL Lactate 1.1 (0.7-2.1) mmol/L Calcium 9.2 (8.4-10.2) mg/dL Total Bilirubin 0.7 (0.2-1.3) mg/dL AST 161 H (14-36) IU/L ALT 61 H (<35) IU/L Alkaline Phosphatase 274 H (38-126) U/L Total Protein 6.9 (6.3-8.2) g/dL Albumin 3.8 (3.5-5.0) g/dL Globulin 3.1 (1.7-4.1) g/dL Albumin/Globulin Ratio 1.2 (1.0-2.8) Lipase 38 (23-300) U/L Urine Dip Bedside Urine Glucose Negative Bedside Urine Bilirubin - Negative Bedside Urine Ketone - Negative Urine Specific [place] 1.020 Bedside Urine Occult Blood - Negative Bedside Urine pH 6.0 Bedside Urine Protein - Negative Bedside Urine Urobilinogen - Negative Bedside Urine Nitrite - Negative Bedside Urine Leukocytes - Negative Esterase Imaging Data CT Lspine : Radiologist's Impression: [address] [id number] Scan ReportSigned Patient: Li Salgado LMR#: [id number]: 8Acct:[id number]/Sex: 71 / FDate of Service: 05/12/21Loc: EDAccession Number: [id number] Procedure: CT lumbar spine wo/w con Ordering Provider: Juliane Lynn D.O. PROCEDURE: CT LUMBAR SPINE WO/W CON INDICATIONS: s/p lumbar surgery for right sciatic, left leg pain TECHNIQUE: After the administration of intravenous Isovue contrast, 3 mm thick sections acquired through the levels of interest. Sagittal and coronal reformats were then constructed. For radiation dose reduction, the following was used: automated exposure control. COMPARISON: [facility], CR, XR LUMBAR SPINE 2-3V, 08/19/2020, 11:02. FINDINGS: There are postsurgical changes of anterior fixation at L5-S1 by means of anterior plate and screws. There are also postsurgical changes of posterior fixation at L5-S1 by means of left-sided pedicle screws and stabilization trent. Bilateral L5 pars defects redemonstrated. Anterolisthesis of L5 on S1 currently measures approximately 7 mm, decreased from approximately 9 mm on the preoperative examination from 08/19/2020. There is new lytic change in the superior and anterior S1 vertebral body. This could be iatrogenic related to some bone removal, versus lytic/resorptive change surrounding the hardware. No appreciable osseous fusion across the intervertebral disc space or amongst the posterior elements at this time. Pseudo bulge related to the listhesis flattens the ventral thecal sac and may result in some mild displacement of the descending S1 nerve roots. Neural foraminal height loss and distortion related to the disc height loss and listhesis produces severe bilateral neural foraminal narrowing similar to the prior study. There is flattening of the bilateral exiting L5 nerve roots. At L4-L5, diffuse disc bulge flattens the ventral thecal sac. Foraminal components of the disc bulge leads to mild neural foraminal narrowing in conjunction with facet hypertrophy. From T12-L1 through L3-4, no spinal canal stenosis or neural foraminal stenosis. Alignment is normal at these levels. Vertebral body heights maintained at these levels. Post-contrast images demonstrate no abnormal epidural enhancement or soft tissue enhancement. There is no fluid collection in the regional soft tissues. IMPRESSION: Postsurgical changes of L5-S1 anterior and posterior fixation. Improved anterolisthesis of L5 on S1 when compared with preoperative imaging. Some mild residual listhesis L5 on S1 combining with degenerative changes to produce mild-moderate subarticular zone stenosis and severe bilateral neural foraminal stenosis similar to the prior study. No acute complicating hardware feature or abnormal enhancement identified. Dictated by: Isael Merrill M.D. on 05/12/2021 at 16:40 Approved by: Isael Merrill M.D. on 05/12/2021 at 16:44 [facility] Narrative Medical decision making narrative: This is a 71-year-old female who comes to the emergency department with complaint of left lower extremity pain. Patient had a lumbar anterior posterior fusion with left-sided intervention for the right side. Patient states her right lower extremity feels much better but she is hav ing pain with weight-bearing on the left. Patient states she is asymptomatic when lying. If she tries to be seated or standing and weight-bearing she is significantly uncomfortable. Patient denies any numbness or tingling. She denies any weakness she states it is pain only. Patient initially deferred any pain medications beyond her normal home pain medications. After discussion she did do a dose of Dilaudid as well as a dose of Toradol. After further discussion as well she had improvement and was able to ambulate after Toradol with her most recent visit. Patient's labs appear reassuring. Her CT shows some postoperative changes. These were discussed at length with the orthopedic surgeon, Dr. Sparks. After discussion patient's pain was somewhat improved, plan was for patient to follow-up tomorrow with the orthopedic surgeons for evaluation. During further discussion and evaluation with the patient her was quite concerned about her pain management understandably. Patient and I discussed that we can talk with [facility] and transfer for pain management as well as follow-up with orthopedic surgery. After further discussion patient elects to return home and felt that she was able to ambulate safely. Patient was uncomfortable but felt that she could manage her pain with p.o. Toradol at home she prescription was provided and would be able to follow- up tomorrow in the office. Return precautions were discussed. I did make it clear to the patient as well as her that I am happy to work on transferring them to [facility] if they do not feel safer that her pain can be controlled for evaluation with Orthopedic surgery. Dr. Sparks please also re- contacted and was aware that were having some difficulty with pain management and was also agreeable to this potential option if necessary. Discharge Plan Departure Patient Disposition: Home Clinical Impression: Leg pain, left, Fusion of lumbar spine Activity Restrictions/Additional Instructions: Follow-up with your surgeon or his partner tomorrow. Dr. Sparks would like you seen in the office tomorrow. You may take Toradol every 6 hours as needed for pain. Prescription was sent to . Continue your other pain medications as prescribed. Please return for fevers, rapidly worsening symptoms, loss of bowel or bladder control, new numbness, weakness or loss of sensation, intractable pain or other new or concerning symptoms. Prescriptions: New ketorolac 10 mg tablet 10 mg PO Q6H PRN (Reason: pain) 10 Days Qty: 10 RF: 0 No Action VIT WITH MINERALS (#D3PLUS) 1,000 cap PO Q DAY Qty: 0 RF: 0 ASCORBIC ACID (VITAMIN C (CHEWABLE)) 1,000 mg PO Q DAY Qty: 0 RF: 0 Magnesium/Pyridoxine (#MAGNESIUM & B6 250 MG-125 MG) 1 tab PO Q DAY Qty: 0 RF: 0 fluoxetine 20 MG tablet 20 mg PO Q DAY Qty: 30 RF: 11 CHOLESTYRAMINE (#CHOLESTYRAMINE) 4 gm PO Q DAY Qty: 378 RF: 11 alprazolam 0.25 MG tablet 0.25 mg PO Q8HP Qty: 90 RF: 0 estradiol 1 MG tablet 1 mg PO QDAY Qty: 90 RF: 3 lisinopril 20 MG tablet 20 mg PO QDAY Qty: 0 RF: 0 albuterol sulfate [Proventil HFA] 90 MCG/PUFF HFA aerosol inhaler 2 puff INH PRNQty: 0 RF: 0 vitamin B complex [B Complex-Vitamin B12] 1 EACH tablet 1 tab PO QDAY Qty: 0 RF: 0 calcium citrate-vitamin D3 [Citracal + D Maximum] 1,500 MG/250 IU tablet 1 tab PO QDAY Qty: 0 RF: 0 VITAMIN D (Vitamin D3) 4,000 u PO QDAY Qty: 0 RF: 0 [FLAX SEED OIL] 1,400 mg PO QDAY Qty: 0 RF: 0 cetirizine 10 MG tablet 10 mg PO QDAY Qty: 0 RF: 0 ranitidine HCl [Zantac] 150 MG tablet 150 mg PO QDAY Qty: 0 RF: 0 triamcinolone acetonide 0.1 % cream 1 rosalba Topical BID PRNQty: 0 RF: 0 clobetasol-emollient 0.05 % cream 1 rosalba Topical BID PRNQty: 0 RF: 0 clobetasol 0.05 % solution 0.05 % Topical TID Qty: 0 RF: 0 latanoprost 0.005 % drops 1 drp OU HS Qty: 0 RF: 0 oxycodone 5 MG tablet 1 - 2 tab PO Q4HP PRNQty: 45 RF: 0 gabapentin 100 mg capsule 100 mg PO TID Qty: 60 RF: 0 Referrals: Susan Stanford PA-C [Primary Care Provider] -
--- NOTE | 2021-05-12 17:07 | PC.NURSE ---
patient was willing to try and use a walker to get out of bed and access mobility. She was able to sit at the bedside with a lot of pain, and upon standing was crying from the pain. She stated standing in place did not relieve any of the pain. Assisted her back into bed and laying down where her pain subsided to a 0/10 .
[2021-05-12] MEDS: HYDROMORPHONE 1 MG INJ IV (17:36)
[2021-05-12] MEDS: KETOROLAC 30 MG/ML VIAL 15 MG IV (18:47)
== END 2021-05-12 20:30 | disposition home or self-care (01) ==
PROVIDERS: Emergency Provider Emergency Medicine; PCP Physician Assistant
DX: M79.605 Pain in left leg (principal); M43.26 Fusion of spine, lumbar region
CPT/HCPCS: 36415; 72133; 80053; 81003; 83605; 83690; 85025; 96374; 96375; 99284; J1170; J1885

== ENCOUNTER 2021-05-13 12:19 | Emergency (ER) | payer MEDICARE, OTHER, SELFPAY ==
[2021-05-13] VITALS (7 sets, daily range): BP systolic 158–191; BP diastolic 70–84; PULSE 67–72; RESP 16; TEMP 36.6; O2SAT 95–99; BMI 29.2
--- NOTE | 2021-05-13 12:42 | ED.BACK ---
HPI - Back Pain/Injury General Chief Complaint: Back Pain/Injury Stated Complaint: back pain Time Seen by Provider: 05/13/21 12:34 Source: patient and EMS Limitations: physical limitation History of Present Illness HPI Narrative: Patient is a 71-year-old female with history of lower back discomfort. This is 3rd visit in 3 days for the same symptoms. She is currently on gabapentin, oxycodone, steroids and also ketorolac. Seen here in the emergency department yesterday. An extensive workup and there was some discussion about attempting transfer to [facility] where her surgeon is located however after interventions here in the emergency department the decision was to be discharged home him be seen in the clinic today. Patient states she attempted to contact her surgeon's office and they scheduled her an appointment for tomorrow but she says that her discomfort has continued. When she is laying flat for symptoms seem to be well controlled however when she moves her stands she has discomfort in her right side. Related Data Home Medications Medication Instructions Recorded Confirmed ASCORBIC ACID (VITAMIN C 1,000 mg PO Q DAY #0 05/04/12 08/01/19 (CHEWABLE)) Magnesium/Pyridoxine (#MAGNESIUM & 1 tab PO Q DAY #0 05/04/12 08/01/19 B6 250 MG-125 MG) VIT WITH MINERALS (#D3PLUS) 1,000 cap PO Q DAY #0 05/04/12 08/01/19 lisinopril 20 mg tablet 20 mg PO QDAY #0 02/21/17 08/01/19 VITAMIN D (Vitamin D3) 4,000 u PO QDAY #0 05/16/17 08/01/19 [FLAX SEED OIL] 1,400 mg PO QDAY #0 05/16/17 08/01/19 albuterol sulfate 90 mcg/actuation 2 puff INH PRN #0 05/16/17 08/01/19 aerosol inhaler (Proventil HFA) calcium citrate 315 mg 1 tab PO QDAY #0 05/16/17 08/01/19 calcium-vitamin D3 6.25 mcg (250 unit) tablet (Citracal + Vitamin D Maximum) cetirizine 10 mg tablet 10 mg PO QDAY #0 05/16/17 08/01/19 clobetasol 0.05 % scalp solution 0.05 % TOPICAL TID #0 05/16/17 08/01/19 clobetasol-emollient 0.05 % 1 rosalba TOPICAL BID PRN #0 05/16/17 08/01/19 topical cream latanoprost 0.005 % eye drops 1 drp OU HS #0 05/16/17 08/01/19 ranitidine HCl 150 mg tablet 150 mg PO QDAY #0 05/16/17 08/01/19 (Zantac) triamcinolone acetonide 0.1 % 1 rosalba TOPICAL BID PRN #0 05/16/17 08/01/19 topical cream vitamin B complex (B 1 tab PO QDAY #0 05/16/17 08/01/19 Complex-Vitamin B12) methylprednisolone See Rx Instructions .ROUTE .COMPLEX 05/13/21 05/13/21 Previous Rx's Medication Instructions Recorded fluoxetine 20 mg tablet 20 mg PO Q DAY #30 06/19/12 CHOLESTYRAMINE (#CHOLESTYRAMINE) 4 gm PO Q DAY #378 10/16/12 alprazolam 0.25 mg tablet 0.25 mg PO Q8HP #90 01/19/13 estradiol 1 mg tablet 1 mg PO QDAY #90 06/12/13 oxycodone 5 mg tablet 1 - 2 tab PO Q4HP PRN #45 tab 05/27/17 gabapentin 100 mg capsule 100 mg PO TID #60 cap 05/11/21 ketorolac 10 mg tablet 10 mg PO Q6H PRN 10 Days #10 tab 05/12/21 lidocaine 5 % topical patch 1 patch TOPICAL DAILY #1 ea 05/13/21 oxycodone 5 mg tablet 10 mg PO Q4H PRN #20 tab 05/13/21 Allergies Allergy/AdvReac Type Severity Reaction Status Date / Time benzocaine [BENZOCAINE] Allergy Severe (DENTAL) Verified 05/13/21 12:25 GUMS TURNED BLACK AND SLOUGHED OFF Review of Systems Constitutional Constitutional: Reports system reviewed and no additional complaints, except as documented Cardiovascular Cardiovascular: Reports system reviewed and no additional complaints, except as documented Respiratory Respiratory: Reports system reviewed and no additional complaints, except as documented Gastrointestinal Gastrointestinal: Reports system reviewed and no additional complaints, except as documented Musculoskeletal Musculoskeletal: Reports as per HPI Integumentary/Breasts Skin/Breast: Reports system reviewed and no additional complaints, except as documented Neurologic Comments: Tingling radiating down right leg Hematologic/Lymphatic On Anticoagulants: No Patient History Medical History (Updated 05/13/21 @ 13:47 by Tristan Iniguez DO) Cough Social History Smoking Status: Never smoker Smoking Status: Never smoker alcohol intake frequency: 0-2 drinks per day Substance Use Type: does not use Exam Initial Vital Signs Initial Vital Signs: Vital Signs Pulse Rate 71 05/13/21 12:24 Pulse Oximetry 97 05/13/21 12:24 Const General: cooperative and healthy appearing [facility] Head: normal to inspection and normocephalic Resp Effort & Inspection: normal respiratory effort Cardio Rate: regular rate Back/Spine/Pelvis Other: Discomfort with flexion of the right hip Skin General: no rashes or lesions noted and elasticity normal Neuro General: patient alert, patient awake and patient oriented x3 Extrem General: normal to inspection Psych Appearance: grossly normal and well kempt Course Vital Signs Vital signs: Vital Signs - 8 hr 05/13/21 12:24 05/13/21 12:25 05/13/21 12:30 Temperature 97.9 F Pulse Rate 71 67 72 Respiratory Rate 16 Blood Pressure 158/76 H 173/84 H Pulse Oximetry 97 95 99 05/13/21 13:00 05/13/21 13:01 Temperature Pulse Rate 67 68 Respiratory Rate Blood Pressure 162/70 H Pulse Oximetry 97 96 MDM - Back Pain/Injury MDM Narrative Medical decision making narrative: Discussed the case with the discharge provider from her operative surgeon. She does have a follow-up already scheduled for tomorrow. Have low suspicion for cauda equina. Low suspicion for infection. Also contacted [facility] they have no bed availability. Plan will be is to refill her pain medication. She will also take the muscle relaxers that she has at home. We will try lidocaine patches. I feel we can hold on radiologic studies. She did not want any pain medication here in the emergency department. Will have her keep her appointment already scheduled for tomorrow. She is given return precautions. She expressed understanding and agreement. Discharge Plan Departure Patient Disposition: Home Clinical Impression: Lumbar back pain Instructions: DI for Low Back Pain Activity Restrictions/Additional Instructions: Recommend that you keep your appointment that you have scheduled tomorrow. Continue to take all the medications like we discussed. Return to the emergency department for any new or worsening symptoms Prescriptions: New lidocaine 5 % adhesive patch,medicated 1 patch topical DAILY Qty: 1 RF: 0 oxycodone 5 mg tablet 10 mg PO Q4H PRN (Reason: pain) Qty: 20 RF: 0 No Action VIT WITH MINERALS (#D3PLUS) 1,000 cap PO Q DAY Qty: 0 RF: 0 ASCORBIC ACID (VITAMIN C (CHEWABLE)) 1,000 mg PO Q DAY Qty: 0 RF: 0 Magnesium/Pyridoxine (#MAGNESIUM & B6 250 MG-125 MG) 1 tab PO Q DAY Qty: 0 RF: 0 fluoxetine 20 MG tablet 20 mg PO Q DAY Qty: 30 RF: 11 CHOLESTYRAMINE (#CHOLESTYRAMINE) 4 gm PO Q DAY Qty: 378 RF: 11 alprazolam 0.25 MG tablet 0.25 mg PO Q8HP Qty: 90 RF: 0 estradiol 1 MG tablet 1 mg PO QDAY Qty: 90 RF: 3 lisinopril 20 MG tablet 20 mg PO QDAY Qty: 0 RF: 0 albuterol sulfate [Proventil HFA] 90 MCG/PUFF HFA aerosol inhaler 2 puff INH PRNQty: 0 RF: 0 vitamin B complex [B Complex-Vitamin B12] 1 EACH tablet 1 tab PO QDAY Qty: 0 RF: 0 calcium citrate-vitamin D3 [Citracal + D Maximum] 1,500 MG/250 IU tablet 1 tab PO QDAY Qty: 0 RF: 0 VITAMIN D (Vitamin D3) 4,000 u PO QDAY Qty: 0 RF: 0 [FLAX SEED OIL] 1,400 mg PO QDAY Qty: 0 RF: 0 cetirizine 10 MG tablet 10 mg PO QDAY Qty: 0 RF: 0 ranitidine HCl [Zantac] 150 MG tablet 150 mg PO QDAY Qty: 0 RF: 0 triamcinolone acetonide 0.1 % cream 1 rosalba Topical BID PRNQty: 0 RF: 0 clobetasol-emollient 0.05 % cream 1 rosalba Topical BID PRNQty: 0 RF: 0 clobetasol 0.05 % solution 0.05 % Topical TID Qty: 0 RF: 0 latanoprost 0.005 % drops 1 drp OU HS Qty: 0 RF: 0 oxycodone 5 MG tablet 1 - 2 tab PO Q4HP PRNQty: 45 RF: 0 gabapentin 100 mg capsule 100 mg PO TID Qty: 60 RF: 0 ketorolac 10 mg tablet 10 mg PO Q6H PRN (Reason: pain) 10 Days Qty: 10 RF: 0 methylprednisolone package See Rx Instructions .ROUTE .COMPLEX RF: 0 Referrals: Susan Stanford PA-C [Primary Care Provider] -
== END 2021-05-13 14:09 | disposition home or self-care (01) ==
PROVIDERS: Emergency Provider Emergency Medicine; PCP Physician Assistant
DX: M54.5 Low back pain (principal)
CPT/HCPCS: 99281

== ENCOUNTER 2021-08-25 13:45 | Outpatient (RCR) | payer MEDICARE, OTHER, SELFPAY ==
--- NOTE | 2021-06-24 14:22 | PT.OIE ---
Current Diagnoses Spinal stenosis, lumbar region without neurogenic claudication (06/24/21) Past Medical History (Last Reviewed 05/13/21 @ 12:49 by Tristan Iniguez DO) Cough Visit Care Team Role Provider Type Susan Stanford PA-C Primary Care Provider Non-Staff Specialty: Internal Medicine Address: [address] [place] [address], [address] Email: [email or web address] Charito Serna MD Attending Provider Non-Staff Referring Provider Specialty: Orthopedics Address: [address] [place] [address], [address] Phone: Fax: Email: Physical Therapy Initial Evaluation PT-OP-A Visit Information Start: 06/24/21 12:42 Freq: Status: Active Protocol: Document 06/24/21 11:15 HH (Rec: 06/24/21 12:56 HH [email or web address]) Out-Patient Physical Therapy Visit Information Visit Information Visit Type Initial Evaluation Visit Note Pt will have f/u with surgeon again on 08/11/21 Visit Start Time 11:15 Visit Stop Time 12:10 Total Visit Minutes 55 Visit Number 11/18 Number of RAMP AGENT Visits 0 Evaluation Information Evaluation Date 06/24/21 Precautions Precautions post op L5-S1 fusion 05/01/21 PT-OP-B Current Condition Start: 06/24/21 12:42 Freq: Status: Active Protocol: Document 06/24/21 11:15 HH (Rec: 06/24/21 12:56 HH [email or web address]) Current Condition History of Current Condition Onset Date 05/01/21 Current Complaints Sacral fx, Chronic LBP, radiating pain to L LE, difficulty in walking History of Current Condition Li is a 71yo female here s/p 8 weeks L5-S1 fusion for her R leg pain by surgeon Dr. Serna from [place] [facility]. Pt was recovering well for the first 3 days but woke up with severe pain. She went to ER and was dx with sacral fx. Pt has been experiencing severe pain to her L buttock and leg since then with difficulty with any WB activities. She is currently approx 10 Gabapentin and 3 tylenol a day for pain control. She states she has been getting better and able to start walking again recently. She noticed she has new onset of numbness to L lateral thigh and calf since surgery. She currently has to bear weight mostly on RLE to walk to reduce pain. Prior to surgery, pt was very active and walked 3-5 miles a day with her dog and participated 3-4 times aquatic aerobics at the [facility]. Prior Treatments and Tests pt had a f/u with surgeon last week and she stated MD told her that her sacrum is healing properly. No precautions noted. ACDF C3-C7 with good recovery. Future Testing and Treatments Planned pt stated her surgeon might recommend surgical clean up if her symptoms will not improve. Treatment Goals Patient/Caregiver Goals 1. to be able to return daily walking up to 3-5 miles indepenently 2. to be able to complete house chores again 3. participate aquatic aerobic class 3-4 times a week Prior Functional Status Baseline Function- ADL's Independent Baseline Function- Mobility Independent Baseline Function- Other IND for all critical care specialist Current Functional Impairments (Reported) Functional Limitations- ADL's pt has to hire a halfway house counselor once a week to assist pt for laundry, vacumming, sweeping the floor. PT-OP-C Subjective Start: 06/24/21 12:42 Freq: Status: Active Protocol: Document 06/24/21 11:15 HH (Rec: 06/24/21 12:56 HH [email or web address]) Patient Questionnaires Oswestry Low Back Index Oswestry Score 44 Oswestry Impairment 40 to 59% Impaired (Score 40- 59) OP-PT Pain Assessment Location posterior leg Pain Location Details L Intensity 3 Scale Used Numeric (0 - 10) Description Aching,Radiating Frequency Frequent Pain Aggravating Factors ADL's,Activity,Exercise, Standing,Sitting,Walking,Stair Climbing,Bending,Lifting Pain Alleviating Factors Inactivity,Lying Supine,Lying Prone L SIJ Pain Location Details SIJ & buttock Intensity 4 Description Aching,Pressure,Radiating Frequency Constant Pain Aggravating Factors ADL's,Activity,Exercise, Standing,Sitting,Walking,Stair Climbing,Bending,Lifting Pain Alleviating Factors Inactivity,Lying Prone PT-OP-F Manual Assessment Start: 06/24/21 12:42 Freq: Status: Active Protocol: Document 06/24/21 13:55 HH (Rec: 06/24/21 14:21 HH [email or web address]) Manual Assessments Soft Tissue Assessment Soft Tissue Mobility Assessment significant hypertonicity at L SIJ region, gluteal muscle group and gluteal medius PT-OP-G Mobility & Gait Start: 06/24/21 12:42 Freq: Status: Active Protocol: Document 06/24/21 13:55 HH (Rec: 06/24/21 14:21 [email or web address]) OP Gait Assessment Gait Deviations General Gait Pattern Antalgic,Decreased Stride Length,Decreased Feet Clearance Factors Limiting Gait Function Factors Limiting Gait Function Decreased Activity Tolerance, Decreased Strength,Limited Range of Motion,Pain,Poor Balance Comments Gait Comments pt is wobbly with her gait. She often loses balance during stance phase of LLE. She primarily WB via RLE d/t pain on LLE PT-OP-H Neuro Start: 06/24/21 12:42 Freq: Status: Active Protocol: Document 06/24/21 13:55 HH (Rec: 06/24/21 14:21 [email or web address]) Sensation Evaluation Gross Sensation Gross Sensation Left LE Impaired Sensation Description Numbness Dermatome Impairments L5 Comments Summary Comments decreased sensation to touch lateral thigh, medial chavira and lateral chavira and dorsal aspect of big toe and 2nd toe. Deep Tendon Reflex & Clonus Assessment Deep Tendon Reflex Bilateral Achilles Deep Tendon Reflex 2+ Normal Bilateral Patellar Deep Tendon Reflex 2+ Normal PT-OP-J Posture/Palpation/Skin Start: 06/24/21 12:42 Freq: Status: Active Protocol: Document 06/24/21 13:55 HH (Rec: 06/24/21 14:21 [email or web address]) Posture Evaluation Position Standing Evaluation View Anterior Weight Distribution Weight Shifted Right PT-OP-K Range of Motion Start: 06/24/21 12:42 Freq: Status: Active Protocol: Document 06/24/21 13:55 HH (Rec: 06/24/21 14:21 [email or web address]) Hip Goniometric Range of Motion Hip Right Active Hip ROM WFL Yes Straight Leg Raise 90 Left Active Hip ROM WFL No Testing Position Supine Straight Leg Raise 72 Comments radiating pain to L buttock and posterior thigh PT-OP-L Special Tests Start: 06/24/21 12:42 Freq: Status: Active Protocol: Document 06/24/21 13:55 HH (Rec: 06/24/21 14:21 [email or web address]) Special Tests Lumbar Spine Special Tests Straight Leg Raise Test Results +VE L Comments ASLR up to 70 with buttock pain Slump Test Results +VE L Comments pain at buttock and posterior thigh PT-OP-M Strength Start: 06/24/21 12:42 Freq: Status: Active Protocol: Document 06/24/21 13:55 (Rec: 06/24/21 14:21 [email or web address]) Hip Strength Hip Manual Muscle Testing Right Flexion (L2) 4+ Good+ Extension (S1) 4+ Good+ Abduction 4+ Good+ Adduction 4+ Good+ Left Flexion (L2) 4- Good- Extension (S1) 3+ Fair+ Abduction 3+ Fair+ Adduction 4- Good- Knee Strength Knee Manual Muscle Testing Right Flexion (S2) 4+ Good+ Extension (L3) 4+ Good+ Left Flexion (S2) 4+ Good+ Extension (L3) 4+ Good+ Ankle/Foot Strength Ankle and Foot Manual Muscle Testing Right Dorsiflexion (L4) 5 Normal Plantarflexion (S1) 5 Normal Inversion 5 Normal Eversion (S1) 5 Normal Left Dorsiflexion (L4) 4 Good Plantarflexion (S1) 4+ Good+ Inversion 5 Normal Eversion (S1) 5 Normal Toe Strength Toe Manual Muscle Testing Right Great Toe Flexion 5 Normal Left Great Toe Flexion 3+ Fair+ PT-OP-Q Treatments Start: 06/24/21 12:42 Freq: Status: Active Protocol: Document 06/24/21 13:55 (Rec: 06/24/21 14:21 [email or web address]) Self-Care/Home Management Treatment Education Patient Education Body Mechanics,Home Exercise Program,Pain Management, Posture Other Education spent time explaining to pt regarding the clinical findings which indicates L5 radiculopathy d/t sensation loss and weakness at big toe and ankle DF, along with radiating pain from SLR and slump test. Discussed with her regarding treatment plan to decrease her sciatic nerve sensitivity, building her gluteal strength to normalize her gait. PT-OP-T Assessment and Plan Start: 06/24/21 12:42 Freq: Status: Active Protocol: Document 06/24/21 13:55 (Rec: 06/24/21 14:21 [email or web address]) Physical Therapy Assessment Rehab Potential Rehabilitation Potential Good Evaluation Complexity Number of Personal Factors/Comorbidities 1-2 Number of Body Systems Impaired 1-2 Clinical Presentation at Evaluation Stable Impairments Impairments Activity Tolerance,Balance, Functional Activities, Functional Mobility,Gait,Pain, Posture,ROM,Sensation,Soft Tissue Mobility,Strength Goals activity tolerance Impairment pt is unable to tolerate any walking and staning activities Short Term Goal (STG) pt will show improved LLE strength and stability to normalize her gait with symmetrical stance phase bilaterally STG Duration 5 weeks Export Freight Specialist Goal (LTG) pt will show improved LLE strength and stability to be able to walk 2 miles x4 times a week LTG Duration 10 weeks neural tension test Impairment significant radiating pain on LLE with ASLR and slump test Short Term Goal (STG) pt will have pain no more than 2 during ASLR and slump test to show reduce neural tension STG Duration 5 weeks [facility] Goal (LTG) pt will not have radiating symptoms during ASLR and slump test to show reduce neural tension LTG Duration 10 weeks Owestry Impairment pt scores 44 on Owestry Short Term Goal (STG) pt will score < 35 on Owestry to show improvements in mobility and strength STG Duration 5 weeks Export Freight Specialist Goal (LTG) pt will score < 25 on Owestry to show improvements in mobility and strength LTG Duration 10 weeks Assessment Summary Assessment Li is a 71yo female here s/p POD 8 weeks L5-S1 fusion, along with sacral fracture 3 days after her surgery. Pt stated her surgeon said that her sacrum is healing properly but not fully recovered yet. Upon assessment, pt shows L5 nerve root radiulopathy with sensation loss to touch in dermatonal pattern and weakness at ankle DF and big toe extension. She has significant pain in any WB activities which causes her limbing gait. Pt stated surgeon suggested possible clean up in the future. In the meantime, I believe pt can benefit from skilled therapy to decrease her sciatic nerve tension, improve her LLE strength and stability in order to normalize gait and return to WB activities. Physical Therapy Plan Frequency and Duration Frequency of Treatment 2x/Week Duration of Treatment 10 weeks Plan of Care Start Date 06/24/21 Plan of Care End Date 09/07/21 Therapeutic Interventions Therapeutic Interventions Aquatic Therapy,Balance Training,Gait Training,Home Exercise Program,Joint Mobilizations,Manual Therapy, Neuromuscular Re-education, Patient/Caregiver Education, Self-Care/Home Management,Soft Tissue Mobilization,Taping, Therapeutic Activities, Therapeutic Exercises Modalities Cold Pack/Ice Massage,Electric Stimulation,Hot Packs, Infrared Therapy,Traction- Mechanical,Ultrasound Next Visit Focus/Plan Next Note Type Treatment Note Next Visit Plan LLE traction STM on glute, TFL nerve glide ofelia, figure 4
--- NOTE | 2021-06-24 14:22 | PT.OPPOC ---
Physical, Occupational & Speech Therapy At [facility] Current Diagnoses Spinal stenosis, lumbar region without neurogenic claudication (06/24/21) Visit Care Team Role Provider Type Susan Stanford PA-C Primary Care Provider Non-Staff Specialty: Internal Medicine Address: [address] [place] [address], [address] Email: [email or web address] Charito Serna MD Attending Provider Non-Staff Referring Provider Specialty: Orthopedics Address: [address] [place] [address], [address] Phone: Fax: Email: Plan Of Care PT-OP-T Assessment and Plan Start: 06/24/21 12:42 Freq: Status: Active Protocol: Document 06/24/21 13:55 HH (Rec: 06/24/21 14:21 [email or web address]) Physical Therapy Assessment Rehab Potential Rehabilitation Potential Good Evaluation Complexity Number of Personal Factors/Comorbidities 1-2 Number of Body Systems Impaired 1-2 Clinical Presentation at Evaluation Stable Impairments Impairments Activity Tolerance,Balance, Functional Activities, Functional Mobility,Gait,Pain, Posture,ROM,Sensation,Soft Tissue Mobility,Strength Goals activity tolerance Impairment pt is unable to tolerate any walking and staning activities Short Term Goal (STG) pt will show improved LLE strength and stability to normalize her gait with symmetrical stance phase bilaterally STG Duration 5 weeks [facility] Goal (LTG) pt will show improved LLE strength and stability to be able to walk 2 miles x4 times a week LTG Duration 10 weeks neural tension test Impairment significant radiating pain on LLE with ASLR and slump test Short Term Goal (STG) pt will have pain no more than 2 during ASLR and slump test to show reduce neural tension STG Duration 5 weeks [employer]ed Science Research Technician Goal (LTG) pt will not have radiating symptoms during ASLR and slump test to show reduce neural tension LTG Duration 10 weeks Owestry Impairment pt scores 44 on Owestry Short Term Goal (STG) pt will score < 35 on Owestry to show improvements in mobility and strength STG Duration 5 weeks Pen[facility]iary Goal (LTG) pt will score < 25 on Owestry to show improvements in mobility and strength LTG Duration 10 weeks Assessment Summary Assessment Li is a 71yo female here s/p POD 8 weeks L5-S1 fusion, along with sacral fracture 3 days after her surgery. Pt stated her surgeon said that her sacrum is healing properly but not fully recovered yet. Upon assessment, pt shows L5 nerve root radiulopathy with sensation loss to touch in dermatonal pattern and weakness at ankle DF and big toe extension. She has significant pain in any WB activities which causes her limbing gait. Pt stated surgeon suggested possible clean up in the future. In the meantime, I believe pt can benefit from skilled therapy to decrease her sciatic nerve tension, improve her LLE strength and stability in order to normalize gait and return to WB activities. Physical Therapy Plan Frequency and Duration Frequency of Treatment 2x/Week Duration of Treatment 10 weeks Plan of Care Start Date 06/24/21 Plan of Care End Date 09/07/21 Therapeutic Interventions Therapeutic Interventions Aquatic Therapy,Balance Training,Gait Training,Home Exercise Program,Joint Mobilizations,Manual Therapy, Neuromuscular Re-education, Patient/Caregiver Education, Self-Care/Home Management,Soft Tissue Mobilization,Taping, Therapeutic Activities, Therapeutic Exercises Modalities Cold Pack/Ice Massage,Electric Stimulation,Hot Packs, Infrared Therapy,Traction- Mechanical,Ultrasound Next Visit Focus/Plan Next Note Type Treatment Note Next Visit Plan LLE traction STM on glute, TFL nerve glide ofelia, figure 4 Plan of Care Dates Plan of Care Start Date 06/24/21 Plan of Care End Date 09/07/21 Electronically Signed by: Yasir Sabillon, PT 06/24/21 [id number] Please Sign and Return: I have reviewed this Plan of Care and certify that the skilled therapy services above are required to meet the patient?s needs. Physician Signature Date Printed Name and Credentials Clinical Instructor Signature Printed Name and Credentials
--- NOTE | 2021-06-26 15:48 | PT.OTN ---
Current Diagnoses Spinal stenosis, lumbar region without neurogenic claudication (06/26/21) Physical Therapy Treatment Note PT-OP-A Visit Information Start: 06/24/21 12:42 Freq: Status: Active Protocol: Document 06/26/21 14:33 HH (Rec: 06/26/21 15:48 HH [id number]) Out-Patient Physical Therapy Visit Information Visit Information Visit Type Treatment Note Visit Note pt is 20 mins late since she thought her appt is at 3pm Pt will have f/u with surgeon again on 08/11/21 Visit Start Time 15:00 Visit Stop Time 15:45 Total Visit Minutes 45 Visit Number 12/19 Number of CERTIFIED PROSTHETIST Visits 0 PT-OP-B Current Condition Start: 06/24/21 12:42 Freq: Status: Active Protocol: Document 06/24/21 11:15 HH (Rec: 06/24/21 12:56 HH [email or web address]) Current Condition History of Current Condition Onset Date 05/01/21 Current Complaints Sacral fx, Chronic LBP, radiating pain to L LE, difficulty in walking History of Current Condition Li is a 71yo female here s/p 8 weeks L5-S1 fusion for her R leg pain by surgeon Dr. Serna from [facility] [place]. Pt was recovering well for the first 3 days but woke up with severe pain. She went to ER and was dx with sacral fx. Pt has been experiencing severe pain to her L buttock and leg since then with difficulty with any WB activities. She is currently approx 10 Gabapentin and 3 tylenol a day for pain control. She states she has been getting better and able to start walking again recently. She noticed she has new onset of numbness to L lateral thigh and calf since surgery. She currently has to bear weight mostly on RLE to walk to reduce pain. Prior to surgery, pt was very active and walked 3-5 miles a day with her dog and participated 3-4 times aquatic aerobics at the [employer]. Prior Treatments and Tests pt had a f/u with surgeon last week and she stated MD told her that her sacrum is healing properly. No precautions noted. ACDF C3-C7 with good recovery. Future Testing and Treatments Planned pt stated her surgeon might recommend surgical clean up if her symptoms will not improve. Treatment Goals Patient/Caregiver Goals 1. to be able to return daily walking up to 3-5 miles indepenently 2. to be able to complete house chores again 3. 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 PT-OP-C Subjective Start: 06/24/21 12:42 Freq: Status: Active Protocol: Document 06/26/21 14:33 HH (Rec: 06/26/21 15:48 HH [id number]) OP-PT Subjective Patient Comments Patient Comments I brought in a TENS unit today and wanted to see if i need to use it. PT-OP-F Manual Assessment Start: 06/24/21 12:42 Freq: Status: Active Protocol: Document 06/24/21 13:55 HH (Rec: 06/24/21 14:21 HH [email or web address]) Manual Assessments Soft Tissue Assessment Soft Tissue Mobility Assessment significant hypertonicity at L SIJ region, gluteal muscle group and gluteal medius PT-OP-G Mobility & Gait Start: 06/24/21 12:42 Freq: Status: Active Protocol: Document 06/24/21 13:55 HH (Rec: 06/24/21 14:21 HH [email or web address]) OP Gait Assessment Gait Deviations General Gait Pattern Antalgic,Decreased Stride Length,Decreased Feet Clearance Factors Limiting Gait Function Factors Limiting Gait Function Decreased Activity Tolerance, Decreased Strength,Limited Range of Motion,Pain,Poor Balance Comments Gait Comments pt is wobbly with her gait. She often loses balance during stance phase of LLE. She primarily WB via RLE d/t pain on LLE PT-OP-H Neuro Start: 06/24/21 12:42 Freq: Status: Active Protocol: Document 06/24/21 13:55 HH (Rec: 06/24/21 14:21 HH [email or web address]) Sensation Evaluation Gross Sensation Gross Sensation Left LE Impaired Sensation Description Numbness Dermatome Impairments L5 Comments Summary Comments decreased sensation to touch lateral thigh, medial chavira and lateral chavira and dorsal aspect of big toe and 2nd toe. Deep Tendon Reflex & Clonus Assessment Deep Tendon Reflex Bilateral Achilles Deep Tendon Reflex 2+ Normal Bilateral Patellar Deep Tendon Reflex 2+ Normal PT-OP-J Posture/Palpation/Skin Start: 06/24/21 12:42 Freq: Status: Active Protocol: Document 06/24/21 13:55 HH (Rec: 06/24/21 14:21 [email or web address]) Posture Evaluation Position Standing Evaluation View Anterior Weight Distribution Weight Shifted Right PT-OP-K Range of Motion Start: 06/24/21 12:42 Freq: Status: Active Protocol: Document 06/24/21 13:55 HH (Rec: 06/24/21 14:21 [email or web address]) Hip Goniometric Range of Motion Hip Right Active Hip ROM WFL Yes Straight Leg Raise 90 Left Active Hip ROM WFL No Testing Position Supine Straight Leg Raise 72 Comments radiating pain to L buttock and posterior thigh PT-OP-L Special Tests Start: 06/24/21 12:42 Freq: Status: Active Protocol: Document 06/24/21 13:55 HH (Rec: 06/24/21 14:21 [email or web address]) Special Tests Lumbar Spine Special Tests Straight Leg Raise Test Results +VE L Comments ASLR up to 70 with buttock pain Slump Test Results +VE L Comments pain at buttock and posterior thigh PT-OP-M Strength Start: 06/24/21 12:42 Freq: Status: Active Protocol: Document 06/24/21 13:55 HH (Rec: 06/24/21 14:21 [email or web address]) Hip Strength Hip Manual Muscle Testing Right Flexion (L2) 4+ Good+ Extension (S1) 4+ Good+ Abduction 4+ Good+ Adduction 4+ Good+ Left Flexion (L2) 4- Good- Extension (S1) 3+ Fair+ Abduction 3+ Fair+ Adduction 4- Good- Knee Strength Knee Manual Muscle Testing Right Flexion (S2) 4+ Good+ Extension (L3) 4+ Good+ Left Flexion (S2) 4+ Good+ Extension (L3) 4+ Good+ Ankle/Foot Strength Ankle and Foot Manual Muscle Testing Right Dorsiflexion (L4) 5 Normal Plantarflexion (S1) 5 Normal Inversion 5 Normal Eversion (S1) 5 Normal Left Dorsiflexion (L4) 4 Good Plantarflexion (S1) 4+ Good+ Inversion 5 Normal Eversion (S1) 5 Normal Toe Strength Toe Manual Muscle Testing Right Great Toe Flexion 5 Normal Left Great Toe Flexion 3+ Fair+ PT-OP-Q Treatments Start: 06/24/21 12:42 Freq: Status: Active Protocol: Document 06/26/21 14:33 (Rec: 06/26/21 15:48 [id number]) Therapeutic Exercises Supine Exercises bridging Side bilateral Reps/Minutes 8 x2 Comments for HEP, cues on PPT, no discomfort sciatic nerve glide Supine Exercise Name with DF Side bilateral Reps/Minutes 10 x2 Comments for HEP Sidelying Exercises clamshell Side bilateral Reps/Minutes 10 x2 Comments L = significant weakness with shakiness. Sitting Exercises tennis ball release Sitting Exercise Name at R SIJ region ankle DF Resistance level 2 band Reps/Minutes 10 x2 Comments for HEP Manual Therapy Treatment Soft Tissue Mobilization TFL Mobilization Type Manual Lymphatic Drainage, Sustained Pressure,Trigger Point Release Intensity/Depth Moderate Body Position Sidelying glute Mobilization Type Myofascial Release,Sustained Pressure,Trigger Point Release Intensity/Depth Moderate Body Position Sidelying Comments piriformis, gluteal med and regine Nerve Glides sciatic Body Position Supine Comments supine with knee extension and DF PT-OP-T Assessment and Plan Start: 06/24/21 12:42 Freq: Status: Active Protocol: Document 06/26/21 14:33 (Rec: 06/26/21 15:48 [id number]) Physical Therapy Assessment Goals activity tolerance Impairment pt is unable to tolerate any walking and staning activities Short Term Goal (STG) pt will show improved LLE strength and stability to normalize her gait with symmetrical stance phase bilaterally STG Duration 5 weeks Ground Crew Chief Goal (LTG) pt will show improved LLE strength and stability to be able to walk 2 miles x4 times a week LTG Duration 10 weeks neural tension test Impairment significant radiating pain on LLE with ASLR and slump test Short Term Goal (STG) pt will have pain no more than 2 during ASLR and slump test to show reduce neural tension STG Duration 5 weeks Care Home Goal (LTG) pt will not have radiating symptoms during ASLR and slump test to show reduce neural tension LTG Duration 10 weeks Owestry Impairment pt scores 44 on Owestry Short Term Goal (STG) pt will score < 35 on Owestry to show improvements in mobility and strength STG Duration 5 weeks Care Home Goal (LTG) pt will score < 25 on Owestry to show improvements in mobility and strength LTG Duration 10 weeks Assessment Summary Assessment first tx session today which focused on desensitize her sciatic nerve tension and activation of hip stabilizers. Pt has no pain with slump test at the end of session and able to amb faster with reduce antalgic sign. Physical Therapy Plan Frequency and Duration Frequency of Treatment 2x/Week Duration of Treatment 10 weeks Plan of Care Start Date 06/24/21 Plan of Care End Date 09/07/21 Therapeutic Interventions Therapeutic Interventions Aquatic Therapy,Balance Training,Gait Training,Home Exercise Program,Joint Mobilizations,Manual Therapy, Neuromuscular Re-education, Patient/Caregiver Education, Self-Care/Home Management,Soft Tissue Mobilization,Taping, Therapeutic Activities, Therapeutic Exercises Modalities Cold Pack/Ice Massage,Electric Stimulation,Hot Packs, Infrared Therapy,Traction- Mechanical,Ultrasound Next Visit Focus/Plan Next Note Type Treatment Note Next Visit Plan LLE traction STM on glute, TFL nerve glide ofelia, figure 4
--- NOTE | 2021-06-30 16:17 | PT.OTN ---
Current Diagnoses Spinal stenosis, lumbar region without neurogenic claudication (06/30/21) Physical Therapy Treatment Note PT-OP-A Visit Information Start: 06/24/21 12:42 Freq: Status: Active Protocol: Document 06/30/21 14:32 HH (Rec: 06/30/21 15:24 HH [id number]) Out-Patient Physical Therapy Visit Information Visit Information Visit Type Treatment Note Visit Note Pt will have f/u with surgeon again on 08/11/21 pt is taking 7 gabapentin per day. Visit Start Time 14:32 Visit Stop Time 15:15 Total Visit Minutes 43 Visit Number 01/16 Number of DOCUMENTATION SPEC Visits 0 PT-OP-B Current Condition Start: 06/24/21 12:42 Freq: Status: Active Protocol: Document 06/24/21 11:15 HH (Rec: 06/24/21 12:56 HH [email or web address]) Current Condition History of Current Condition Onset Date 05/01/21 Current Complaints Sacral fx, Chronic LBP, radiating pain to L LE, difficulty in walking History of Current Condition Li is a 71yo female here s/p 8 weeks L5-S1 fusion for her R leg pain by surgeon Dr. Serna from [facility] at [place]. Pt was recovering well for the first 3 days but woke up with severe pain. She went to ER and was dx with sacral fx. Pt has been experiencing severe pain to her L buttock and leg since then with difficulty with any WB activities. She is currently approx 10 Gabapentin and 3 tylenol a day for pain control. She states she has been getting better and able to start walking again recently. She noticed she has new onset of numbness to L lateral thigh and calf since surgery. She currently has to bear weight mostly on RLE to walk to reduce pain. Prior to surgery, pt was very active and walked 3-5 miles a day with her dog and participated 3-4 times aquatic aerobics at the [employer]. Prior Treatments and Tests pt had a f/u with surgeon last week and she stated MD told her that her sacrum is healing properly. No precautions noted. ACDF C3-C7 with good recovery. Future Testing and Treatments Planned pt stated her surgeon might recommend surgical clean up if her symptoms will not improve. Treatment Goals Patient/Caregiver Goals 1. to be able to return daily walking up to 3-5 miles indepenently 2. to be able to complete house chores again 3. 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 PT-OP-C Subjective Start: 06/24/21 12:42 Freq: Status: Active Protocol: Document 06/30/21 14:32 HH (Rec: 06/30/21 15:24 [id number]) OP-PT Subjective Patient Comments Patient Comments I had the best day yesterday since surgery so far. I went to the pool and i only did walking and focus on using the core to do things. It was a good day. Patient Reported Progress Improving PT-OP-F Manual Assessment Start: 06/24/21 12:42 Freq: Status: Active Protocol: Document 06/24/21 13:55 HH (Rec: 06/24/21 14:21 [email or web address]) Manual Assessments Soft Tissue Assessment Soft Tissue Mobility Assessment significant hypertonicity at L SIJ region, gluteal muscle group and gluteal medius PT-OP-G Mobility & Gait Start: 06/24/21 12:42 Freq: Status: Active Protocol: Document 06/24/21 13:55 HH (Rec: 06/24/21 14:21 [email or web address]) OP Gait Assessment Gait Deviations General Gait Pattern Antalgic,Decreased Stride Length,Decreased Feet Clearance Factors Limiting Gait Function Factors Limiting Gait Function Decreased Activity Tolerance, Decreased Strength,Limited Range of Motion,Pain,Poor Balance Comments Gait Comments pt is wobbly with her gait. She often loses balance during stance phase of LLE. She primarily WB via RLE d/t pain on LLE PT-OP-H Neuro Start: 06/24/21 12:42 Freq: Status: Active Protocol: Document 06/24/21 13:55 HH (Rec: 06/24/21 14:21 [email or web address]) Sensation Evaluation Gross Sensation Gross Sensation Left LE Impaired Sensation Description Numbness Dermatome Impairments L5 Comments Summary Comments decreased sensation to touch lateral thigh, medial chavira and lateral chavira and dorsal aspect of big toe and 2nd toe. Deep Tendon Reflex & Clonus Assessment Deep Tendon Reflex Bilateral Achilles Deep Tendon Reflex 2+ Normal Bilateral Patellar Deep Tendon Reflex 2+ Normal PT-OP-J Posture/Palpation/Skin Start: 06/24/21 12:42 Freq: Status: Active Protocol: Document 06/24/21 13:55 HH (Rec: 06/24/21 14:21 [email or web address]) Posture Evaluation Position Standing Evaluation View Anterior Weight Distribution Weight Shifted Right PT-OP-K Range of Motion Start: 06/24/21 12:42 Freq: Status: Active Protocol: Document 06/24/21 13:55 HH (Rec: 06/24/21 14:21 [email or web address]) Hip Goniometric Range of Motion Hip Right Active Hip ROM WFL Yes Straight Leg Raise 90 Left Active Hip ROM WFL No Testing Position Supine Straight Leg Raise 72 Comments radiating pain to L buttock and posterior thigh PT-OP-L Special Tests Start: 06/24/21 12:42 Freq: Status: Active Protocol: Document 06/24/21 13:55 HH (Rec: 06/24/21 14:21 [email or web address]) Special Tests Lumbar Spine Special Tests Straight Leg Raise Test Results +VE L Comments ASLR up to 70 with buttock pain Slump Test Results +VE L Comments pain at buttock and posterior thigh PT-OP-M Strength Start: 06/24/21 12:42 Freq: Status: Active Protocol: Document 06/24/21 13:55 HH (Rec: 06/24/21 14:21 [email or web address]) Hip Strength Hip Manual Muscle Testing Right Flexion (L2) 4+ Good+ Extension (S1) 4+ Good+ Abduction 4+ Good+ Adduction 4+ Good+ Left Flexion (L2) 4- Good- Extension (S1) 3+ Fair+ Abduction 3+ Fair+ Adduction 4- Good- Knee Strength Knee Manual Muscle Testing Right Flexion (S2) 4+ Good+ Extension (L3) 4+ Good+ Left Flexion (S2) 4+ Good+ Extension (L3) 4+ Good+ Ankle/Foot Strength Ankle and Foot Manual Muscle Testing Right Dorsiflexion (L4) 5 Normal Plantarflexion (S1) 5 Normal Inversion 5 Normal Eversion (S1) 5 Normal Left Dorsiflexion (L4) 4 Good Plantarflexion (S1) 4+ Good+ Inversion 5 Normal Eversion (S1) 5 Normal Toe Strength Toe Manual Muscle Testing Right Great Toe Flexion 5 Normal Left Great Toe Flexion 3+ Fair+ PT-OP-Q Treatments Start: 06/24/21 12:42 Freq: Status: Active Protocol: Document 06/30/21 14:32 (Rec: 06/30/21 15:24 [id number]) Cardio Equipment Recumbent Bicycle Duration (Minutes) 7 Resistance 5 Seat Position 2 Gym Equipment Shuttle Recovery SL squat Resistance 25# Shuttle Recovery Platform Stable Reps/Time 12 x2, R stronger than L Therapeutic Exercises Supine Exercises bridging Side bilateral Reps/Minutes 8 x2 Comments for HEP, cues on PPT, no discomfort sciatic nerve glide Supine Exercise Name with DF Side bilateral Reps/Minutes 10 x2 Gait Training Gait Activity heeltoe Level of Assistance CGA Surface ground level Distance/Duration 20 ft x8 Treatment Focus balance Comments tandem first but unsuccessful small steps with feet 5 inches apart. Pt is somewhat wobbly and needed CGA Manual Therapy Treatment Soft Tissue Mobilization TFL Mobilization Type Manual Lymphatic Drainage, Sustained Pressure,Trigger Point Release Intensity/Depth Moderate Body Position Sidelying glute Mobilization Type Myofascial Release,Sustained Pressure,Trigger Point Release Intensity/Depth Moderate Body Position Sidelying Comments piriformis, gluteal med and regine PT-OP-T Assessment and Plan Start: 06/24/21 12:42 Freq: Status: Active Protocol: Document 06/30/21 14:32 (Rec: 06/30/21 15:24 [id number]) Physical Therapy Assessment Goals activity tolerance Impairment pt is unable to tolerate any walking and staning activities Short Term Goal (STG) pt will show improved LLE strength and stability to normalize her gait with symmetrical stance phase bilaterally STG Duration 5 weeks Inspector Subassembly Goal (LTG) pt will show improved LLE strength and stability to be able to walk 2 miles x4 times a week LTG Duration 10 weeks neural tension test Impairment significant radiating pain on LLE with ASLR and slump test Short Term Goal (STG) pt will have pain no more than 2 during ASLR and slump test to show reduce neural tension STG Duration 5 weeks Group Home Goal (LTG) pt will not have radiating symptoms during ASLR and slump test to show reduce neural tension LTG Duration 10 weeks Owestry Impairment pt scores 44 on Owestry Short Term Goal (STG) pt will score < 35 on Owestry to show improvements in mobility and strength STG Duration 5 weeks Group Home Goal (LTG) pt will score < 25 on Owestry to show improvements in mobility and strength LTG Duration 10 weeks Assessment Summary Assessment pt walked in with less antalgic sign and her sensation to touch on L leg has also improved. Pt's overall pain and mobility have also improved. Added leg press and gait training today. She has difficulty with NBOS. Physical Therapy Plan Frequency and Duration Frequency of Treatment 2x/Week Duration of Treatment 10 weeks Plan of Care Start Date 06/24/21 Plan of Care End Date 09/07/21 Therapeutic Interventions Therapeutic Interventions Aquatic Therapy,Balance Training,Gait Training,Home Exercise Program,Joint Mobilizations,Manual Therapy, Neuromuscular Re-education, Patient/Caregiver Education, Self-Care/Home Management,Soft Tissue Mobilization,Taping, Therapeutic Activities, Therapeutic Exercises Modalities Cold Pack/Ice Massage,Electric Stimulation,Hot Packs, Infrared Therapy,Traction- Mechanical,Ultrasound Next Visit Focus/Plan Next Note Type Treatment Note Next Visit Plan LLE traction STM on glute, TFL nerve lien gilbert, figure 4
--- NOTE | 2021-07-03 15:19 | PT.OTN ---
Current Diagnoses Spinal stenosis, lumbar region without neurogenic claudication (07/03/21) Physical Therapy Treatment Note PT-OP-A Visit Information Start: 06/24/21 12:42 Freq: Status: Active Protocol: Document 07/03/21 14:25 HH (Rec: 07/03/21 15:19 HH [id number]) Out-Patient Physical Therapy Visit Information Visit Information Visit Type Treatment Note Visit Note Pt will have f/u with surgeon again on 08/11/21 pt is taking 7 gabapentin per day. Visit Start Time 14:30 Visit Stop Time 15:15 Total Visit Minutes 45 Visit Number 02/16 Number of ELECTRO PLATER Visits 0 PT-OP-B Current Condition Start: 06/24/21 12:42 Freq: Status: Active Protocol: Document 06/24/21 11:15 HH (Rec: 06/24/21 12:56 HH [email or web address]) Current Condition History of Current Condition Onset Date 05/01/21 Current Complaints Sacral fx, Chronic LBP, radiating pain to L LE, difficulty in walking History of Current Condition Li is a 71yo female here s/p 8 weeks L5-S1 fusion for her R leg pain by surgeon Dr. Serna from [place] at [place]. Pt was recovering well for the first 3 days but woke up with severe pain. She went to ER and was dx with sacral fx. Pt has been experiencing severe pain to her L buttock and leg since then with difficulty with any WB activities. She is currently approx 10 Gabapentin and 3 tylenol a day for pain control. She states she has been getting better and able to start walking again recently. She noticed she has new onset of numbness to L lateral thigh and calf since surgery. She currently has to bear weight mostly on RLE to walk to reduce pain. Prior to surgery, pt was very active and walked 3-5 miles a day with her dog and participated 3-4 times aquatic aerobics at the [employer]. Prior Treatments and Tests pt had a f/u with surgeon last week and she stated MD told her that her sacrum is healing properly. No precautions noted. ACDF C3-C7 with good recovery. Future Testing and Treatments Planned pt stated her surgeon might recommend surgical clean up if her symptoms will not improve. Treatment Goals Patient/Caregiver Goals 1. to be able to return daily walking up to 3-5 miles indepenently 2. to be able to complete house chores again 3. 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 PT-OP-C Subjective Start: 06/24/21 12:42 Freq: Status: Active Protocol: Document 07/03/21 14:25 HH (Rec: 07/03/21 15:19 [id number]) OP-PT Subjective Patient Comments Patient Comments Edwige been getting better. Im walking better . I went to the pool and 10 mins of biking. My hips are just little sore. Patient Reported Progress Improving PT-OP-F Manual Assessment Start: 06/24/21 12:42 Freq: Status: Active Protocol: Document 06/24/21 13:55 HH (Rec: 06/24/21 14:21 [email or web address]) Manual Assessments Soft Tissue Assessment Soft Tissue Mobility Assessment significant hypertonicity at L SIJ region, gluteal muscle group and gluteal medius PT-OP-G Mobility & Gait Start: 06/24/21 12:42 Freq: Status: Active Protocol: Document 06/24/21 13:55 HH (Rec: 06/24/21 14:21 HH [email or web address]) OP Gait Assessment Gait Deviations General Gait Pattern Antalgic,Decreased Stride Length,Decreased Feet Clearance Factors Limiting Gait Function Factors Limiting Gait Function Decreased Activity Tolerance, Decreased Strength,Limited Range of Motion,Pain,Poor Balance Comments Gait Comments pt is wobbly with her gait. She often loses balance during stance phase of LLE. She primarily WB via RLE d/t pain on LLE PT-OP-H Neuro Start: 06/24/21 12:42 Freq: Status: Active Protocol: Document 06/24/21 13:55 HH (Rec: 06/24/21 14:21 [email or web address]) Sensation Evaluation Gross Sensation Gross Sensation Left LE Impaired Sensation Description Numbness Dermatome Impairments L5 Comments Summary Comments decreased sensation to touch lateral thigh, medial chavira and lateral chavira and dorsal aspect of big toe and 2nd toe. Deep Tendon Reflex & Clonus Assessment Deep Tendon Reflex Bilateral Achilles Deep Tendon Reflex 2+ Normal Bilateral Patellar Deep Tendon Reflex 2+ Normal PT-OP-J Posture/Palpation/Skin Start: 06/24/21 12:42 Freq: Status: Active Protocol: Document 06/24/21 13:55 HH (Rec: 06/24/21 14:21 [email or web address]) Posture Evaluation Position Standing Evaluation View Anterior Weight Distribution Weight Shifted Right PT-OP-K Range of Motion Start: 06/24/21 12:42 Freq: Status: Active Protocol: Document 06/24/21 13:55 HH (Rec: 06/24/21 14:21 HH [email or web address]) Hip Goniometric Range of Motion Hip Right Active Hip ROM WFL Yes Straight Leg Raise 90 Left Active Hip ROM WFL No Testing Position Supine Straight Leg Raise 72 Comments radiating pain to L buttock and posterior thigh PT-OP-L Special Tests Start: 06/24/21 12:42 Freq: Status: Active Protocol: Document 06/24/21 13:55 HH (Rec: 06/24/21 14:21 [email or web address]) Special Tests Lumbar Spine Special Tests Straight Leg Raise Test Results +VE L Comments ASLR up to 70 with buttock pain Slump Test Results +VE L Comments pain at buttock and posterior thigh PT-OP-M Strength Start: 06/24/21 12:42 Freq: Status: Active Protocol: Document 06/24/21 13:55 HH (Rec: 06/24/21 14:21 [email or web address]) Hip Strength Hip Manual Muscle Testing Right Flexion (L2) 4+ Good+ Extension (S1) 4+ Good+ Abduction 4+ Good+ Adduction 4+ Good+ Left Flexion (L2) 4- Good- Extension (S1) 3+ Fair+ Abduction 3+ Fair+ Adduction 4- Good- Knee Strength Knee Manual Muscle Testing Right Flexion (S2) 4+ Good+ Extension (L3) 4+ Good+ Left Flexion (S2) 4+ Good+ Extension (L3) 4+ Good+ Ankle/Foot Strength Ankle and Foot Manual Muscle Testing Right Dorsiflexion (L4) 5 Normal Plantarflexion (S1) 5 Normal Inversion 5 Normal Eversion (S1) 5 Normal Left Dorsiflexion (L4) 4 Good Plantarflexion (S1) 4+ Good+ Inversion 5 Normal Eversion (S1) 5 Normal Toe Strength Toe Manual Muscle Testing Right Great Toe Flexion 5 Normal Left Great Toe Flexion 3+ Fair+ PT-OP-Q Treatments Start: 06/24/21 12:42 Freq: Status: Active Protocol: Document 07/03/21 14:25 (Rec: 07/03/21 15:19 [id number]) Cardio Equipment Recumbent Bicycle Duration (Minutes) 7 Resistance 5 Seat Position 2 Gym Equipment Shuttle Recovery SL squat Resistance 25# Shuttle Recovery Platform Stable Reps/Time 12 x2, R stronger than L Therapeutic Exercises Supine Exercises sciatic nerve glide Supine Exercise Name with DF Side bilateral Reps/Minutes 10 x2 Sitting Exercises ankle DF Sitting Exercise Name for eversion Resistance level 1 band Reps/Minutes 10 x2 Comments for HEP Standing Exercises balance Standing Exercise Name blue foam, EC and ant post weight shift. Reps/Minutes 10 x2 Comments for HEP calf raises Side bilateral Reps/Minutes 10 x2 Comments for HEP Manual Therapy Treatment Soft Tissue Mobilization TFL Mobilization Type Manual Lymphatic Drainage, Sustained Pressure,Trigger Point Release Intensity/Depth Moderate Body Position Sidelying glute Mobilization Type Myofascial Release,Sustained Pressure,Trigger Point Release Intensity/Depth Moderate Body Position Sidelying Comments piriformis, gluteal med and regine Joint Mobilizations B hip Joint traction Direction bilateral Grade III Body Position Supine PT-OP-T Assessment and Plan Start: 06/24/21 12:42 Freq: Status: Active Protocol: Document 07/03/21 14:25 (Rec: 07/03/21 15:19 [id number]) Physical Therapy Assessment Goals activity tolerance Impairment pt is unable to tolerate any walking and staning activities Short Term Goal (STG) pt will show improved LLE strength and stability to normalize her gait with symmetrical stance phase bilaterally STG Duration 5 weeks Sde Goal (LTG) pt will show improved LLE strength and stability to be able to walk 2 miles x4 times a week LTG Duration 10 weeks neural tension test Impairment significant radiating pain on LLE with ASLR and slump test Short Term Goal (STG) pt will have pain no more than 2 during ASLR and slump test to show reduce neural tension STG Duration 5 weeks Halfway Goal (LTG) pt will not have radiating symptoms during ASLR and slump test to show reduce neural tension LTG Duration 10 weeks Owestry Impairment pt scores 44 on Owestry Short Term Goal (STG) pt will score < 35 on Owestry to show improvements in mobility and strength STG Duration 5 weeks Halfway Goal (LTG) pt will score < 25 on Owestry to show improvements in mobility and strength LTG Duration 10 weeks Assessment Summary Assessment pt is progressing well with improved activity tolerance and gait mechanics. I noticed pt has weakness for L ankle eversion. Will add HEP for that next vsiit. Physical Therapy Plan Frequency and Duration Frequency of Treatment 2x/Week Duration of Treatment 10 weeks Plan of Care Start Date 06/24/21 Plan of Care End Date 09/07/21 Therapeutic Interventions Therapeutic Interventions Aquatic Therapy,Balance Training,Gait Training,Home Exercise Program,Joint Mobilizations,Manual Therapy, Neuromuscular Re-education, Patient/Caregiver Education, Self-Care/Home Management,Soft Tissue Mobilization,Taping, Therapeutic Activities, Therapeutic Exercises Modalities Cold Pack/Ice Massage,Electric Stimulation,Hot Packs, Infrared Therapy,Traction- Mechanical,Ultrasound Next Visit Focus/Plan Next Note Type Treatment Note Next Visit Plan LLE traction STM on glute, TFL nerve glide ofelia, figure 4
--- NOTE | 2021-07-08 13:54 | PT.OTN ---
Current Diagnoses Spinal stenosis, lumbar region without neurogenic claudication (07/08/21) Physical Therapy Treatment Note PT-OP-A Visit Information Start: 06/24/21 12:42 Freq: Status: Active Protocol: Document 07/08/21 12:58 HH (Rec: 07/08/21 13:53 HH [id number]) Out-Patient Physical Therapy Visit Information Visit Information Visit Type Treatment Note Visit Note Pt will have f/u with surgeon again on 08/11/21 pt is taking 4 gabapentin per day. Visit Start Time 13:00 Visit Stop Time 13:47 Total Visit Minutes 47 Visit Number 03/18 Number of CIGARETTE MACHINE FILLER Visits 0 PT-OP-B Current Condition Start: 06/24/21 12:42 Freq: Status: Active Protocol: Document 06/24/21 11:15 HH (Rec: 06/24/21 12:56 HH [email or web address]) Current Condition History of Current Condition Onset Date 05/01/21 Current Complaints Sacral fx, Chronic LBP, radiating pain to L LE, difficulty in walking History of Current Condition Li is a 71yo female here s/p 8 weeks L5-S1 fusion for her R leg pain by surgeon Dr. Serna from [place] at [place]. Pt was recovering well for the first 3 days but woke up with severe pain. She went to ER and was dx with sacral fx. Pt has been experiencing severe pain to her L buttock and leg since then with difficulty with any WB activities. She is currently approx 10 Gabapentin and 3 tylenol a day for pain control. She states she has been getting better and able to start walking again recently. She noticed she has new onset of numbness to L lateral thigh and calf since surgery. She currently has to bear weight mostly on RLE to walk to reduce pain. Prior to surgery, pt was very active and walked 3-5 miles a day with her dog and participated 3-4 times aquatic aerobics at the [employer]. Prior Treatments and Tests pt had a f/u with surgeon last week and she stated MD told her that her sacrum is healing properly. No precautions noted. ACDF C3-C7 with good recovery. Future Testing and Treatments Planned pt stated her surgeon might recommend surgical clean up if her symptoms will not improve. Treatment Goals Patient/Caregiver Goals 1. to be able to return daily walking up to 3-5 miles indepenently 2. to be able to complete house chores again 3. 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 PT-OP-C Subjective Start: 06/24/21 12:42 Freq: Status: Active Protocol: Document 07/08/21 12:58 HH (Rec: 07/08/21 13:53 HH [id number]) OP-PT Subjective Patient Comments Patient Comments Im doing pretty good so far. I do feel a little bit more soreness at L hip today. I did the water aerobic class yesterday and it felt pretty good. My morning pain has been getting less. Patient Reported Progress Improving PT-OP-F Manual Assessment Start: 06/24/21 12:42 Freq: Status: Active Protocol: Document 06/24/21 13:55 HH (Rec: 06/24/21 14:21 [email or web address]) Manual Assessments Soft Tissue Assessment Soft Tissue Mobility Assessment significant hypertonicity at L SIJ region, gluteal muscle group and gluteal medius PT-OP-G Mobility & Gait Start: 06/24/21 12:42 Freq: Status: Active Protocol: Document 06/24/21 13:55 HH (Rec: 06/24/21 14:21 HH [email or web address]) OP Gait Assessment Gait Deviations General Gait Pattern Antalgic,Decreased Stride Length,Decreased Feet Clearance Factors Limiting Gait Function Factors Limiting Gait Function Decreased Activity Tolerance, Decreased Strength,Limited Range of Motion,Pain,Poor Balance Comments Gait Comments pt is wobbly with her gait. She often loses balance during stance phase of LLE. She primarily WB via RLE d/t pain on LLE PT-OP-H Neuro Start: 06/24/21 12:42 Freq: Status: Active Protocol: Document 06/24/21 13:55 HH (Rec: 06/24/21 14:21 HH [email or web address]) Sensation Evaluation Gross Sensation Gross Sensation Left LE Impaired Sensation Description Numbness Dermatome Impairments L5 Comments Summary Comments decreased sensation to touch lateral thigh, medial chavira and lateral chaviar and dorsal aspect of big toe and 2nd toe. Deep Tendon Reflex & Clonus Assessment Deep Tendon Reflex Bilateral Achilles Deep Tendon Reflex 2+ Normal Bilateral Patellar Deep Tendon Reflex 2+ Normal PT-OP-J Posture/Palpation/Skin Start: 06/24/21 12:42 Freq: Status: Active Protocol: Document 06/24/21 13:55 HH (Rec: 06/24/21 14:21 [email or web address]) Posture Evaluation Position Standing Evaluation View Anterior Weight Distribution Weight Shifted Right PT-OP-K Range of Motion Start: 06/24/21 12:42 Freq: Status: Active Protocol: Document 06/24/21 13:55 HH (Rec: 06/24/21 14:21 [email or web address]) Hip Goniometric Range of Motion Hip Right Active Hip ROM WFL Yes Straight Leg Raise 90 Left Active Hip ROM WFL No Testing Position Supine Straight Leg Raise 72 Comments radiating pain to L buttock and posterior thigh PT-OP-L Special Tests Start: 06/24/21 12:42 Freq: Status: Active Protocol: Document 06/24/21 13:55 HH (Rec: 06/24/21 14:21 [email or web address]) Special Tests Lumbar Spine Special Tests Straight Leg Raise Test Results +VE L Comments ASLR up to 70 with buttock pain Slump Test Results +VE L Comments pain at buttock and posterior thigh PT-OP-M Strength Start: 06/24/21 12:42 Freq: Status: Active Protocol: Document 06/24/21 13:55 HH (Rec: 06/24/21 14:21 [email or web address]) Hip Strength Hip Manual Muscle Testing Right Flexion (L2) 4+ Good+ Extension (S1) 4+ Good+ Abduction 4+ Good+ Adduction 4+ Good+ Left Flexion (L2) 4- Good- Extension (S1) 3+ Fair+ Abduction 3+ Fair+ Adduction 4- Good- Knee Strength Knee Manual Muscle Testing Right Flexion (S2) 4+ Good+ Extension (L3) 4+ Good+ Left Flexion (S2) 4+ Good+ Extension (L3) 4+ Good+ Ankle/Foot Strength Ankle and Foot Manual Muscle Testing Right Dorsiflexion (L4) 5 Normal Plantarflexion (S1) 5 Normal Inversion 5 Normal Eversion (S1) 5 Normal Left Dorsiflexion (L4) 4 Good Plantarflexion (S1) 4+ Good+ Inversion 5 Normal Eversion (S1) 5 Normal Toe Strength Toe Manual Muscle Testing Right Great Toe Flexion 5 Normal Left Great Toe Flexion 3+ Fair+ PT-OP-Q Treatments Start: 06/24/21 12:42 Freq: Status: Active Protocol: Document 07/08/21 12:58 (Rec: 07/08/21 13:53 [id number]) Gym Equipment Shuttle Recovery SL squat Resistance 25# then 37# Shuttle Recovery Platform Stable Reps/Time 10 x3, R stronger than L, L foot pronation noted. Therapeutic Exercises Supine Exercises bridging Side bilateral Equipment Used red band Reps/Minutes 8 x2 Comments for HEP sciatic nerve glide Supine Exercise Name with DF Side bilateral Reps/Minutes 10 x2 Sitting Exercises ankle eversion Sitting Exercise Name eversion Equipment Used level 2 band Reps/Minutes 10 x2 Comments for HEP ankle DF Sitting Exercise Name DF Resistance level 2 band Reps/Minutes 10 x2 Comments for HEP Standing Exercises calf raises Side bilateral Reps/Minutes 10 x2 Comments for HEP Manual Therapy Treatment Soft Tissue Mobilization TFL Mobilization Type Manual Lymphatic Drainage, Sustained Pressure,Trigger Point Release Intensity/Depth Moderate Body Position Sidelying glute Mobilization Type Myofascial Release,Sustained Pressure,Trigger Point Release Intensity/Depth Moderate Body Position Sidelying Comments piriformis, gluteal med and regine Joint Mobilizations B hip Joint traction Direction bilateral Grade III Body Position Supine PT-OP-T Assessment and Plan Start: 06/24/21 12:42 Freq: Status: Active Protocol: Document 07/08/21 12:58 (Rec: 07/08/21 13:53 [id number]) Physical Therapy Assessment Goals activity tolerance Impairment pt is unable to tolerate any walking and staning activities Short Term Goal (STG) pt will show improved LLE strength and stability to normalize her gait with symmetrical stance phase bilaterally STG Duration 5 weeks Jail Goal (LTG) pt will show improved LLE strength and stability to be able to walk 2 miles x4 times a week LTG Duration 10 weeks neural tension test Impairment significant radiating pain on LLE with ASLR and slump test Short Term Goal (STG) pt will have pain no more than 2 during ASLR and slump test to show reduce neural tension STG Duration 5 weeks Jail Goal (LTG) pt will not have radiating symptoms during ASLR and slump test to show reduce neural tension LTG Duration 10 weeks Owestry Impairment pt scores 44 on Owestry Short Term Goal (STG) pt will score < 35 on Owestry to show improvements in mobility and strength STG Duration 5 weeks Jail Goal (LTG) pt will score < 25 on Owestry to show improvements in mobility and strength LTG Duration 10 weeks Assessment Summary Assessment pt is progressing well with less pain but her L foot weakness (DF and eversion) still presents. Added 4 way ankle strengthening ex and bridging with band. Pt castro session well. Physical Therapy Plan Frequency and Duration Frequency of Treatment 2x/Week Duration of Treatment 10 weeks Plan of Care Start Date 06/24/21 Plan of Care End Date 09/07/21 Therapeutic Interventions Therapeutic Interventions Aquatic Therapy,Balance Training,Gait Training,Home Exercise Program,Joint Mobilizations,Manual Therapy, Neuromuscular Re-education, Patient/Caregiver Education, Self-Care/Home Management,Soft Tissue Mobilization,Taping, Therapeutic Activities, Therapeutic Exercises Modalities Cold Pack/Ice Massage,Electric Stimulation,Hot Packs, Infrared Therapy,Traction- Mechanical,Ultrasound Next Visit Focus/Plan Next Note Type Treatment Note Next Visit Plan LLE traction STM on glute, TFL nerve lien gilbert, figure 4
--- NOTE | 2021-07-10 15:14 | PT.OTN ---
Current Diagnoses Spinal stenosis, lumbar region without neurogenic claudication (07/10/21) Physical Therapy Treatment Note PT-OP-A Visit Information Start: 06/24/21 12:42 Freq: Status: Active Protocol: Document 07/10/21 14:29 MA (Rec: 07/10/21 15:14 MA [id number]) Out-Patient Physical Therapy Visit Information Visit Information Visit Type Treatment Note Visit Note Pt will have f/u with surgeon again on 08/11/21 pt is taking 4 gabapentin per day. Visit Start Time 14:30 Visit Stop Time 15:10 Total Visit Minutes 40 Visit Number 04/18 Number of COMPUTER SYSTEMS TECHNOLOGY INSTRUCTOR Visits 1 PT-OP-B Current Condition Start: 06/24/21 12:42 Freq: Status: Active Protocol: Document 06/24/21 11:15 HH (Rec: 06/24/21 12:56 HH [email or web address]) Current Condition History of Current Condition Onset Date 05/01/21 Current Complaints Sacral fx, Chronic LBP, radiating pain to L LE, difficulty in walking History of Current Condition Li is a 71yo female here s/p 8 weeks L5-S1 fusion for her R leg pain by surgeon Dr. Serna from [place] at [place]. Pt was recovering well for the first 3 days but woke up with severe pain. She went to ER and was dx with sacral fx. Pt has been experiencing severe pain to her L buttock and leg since then with difficulty with any WB activities. She is currently approx 10 Gabapentin and 3 tylenol a day for pain control. She states she has been getting better and able to start walking again recently. She noticed she has new onset of numbness to L lateral thigh and calf since surgery. She currently has to bear weight mostly on RLE to walk to reduce pain. Prior to surgery, pt was very active and walked 3-5 miles a day with her dog and participated 3-4 times aquatic aerobics at the [employer]. Prior Treatments and Tests pt had a f/u with surgeon last week and she stated MD told her that her sacrum is healing properly. No precautions noted. ACDF C3-C7 with good recovery. Future Testing and Treatments Planned pt stated her surgeon might recommend surgical clean up if her symptoms will not improve. Treatment Goals Patient/Caregiver Goals 1. to be able to return daily walking up to 3-5 miles indepenently 2. to be able to complete house chores again 3. participate aquatic aerobic class 3-4 times a week Prior Functional Status Baseline Function- ADL's Independent Baseline Function- Mobility Independent Baseline Function- Other IND for all working second hand Current Functional Impairments (Reported) Functional Limitations- ADL's pt has to hire a casting house worker once a week to assist pt for laundry, vacumming, sweeping the floor. PT-OP-C Subjective Start: 06/24/21 12:42 Freq: Status: Active Protocol: Document 07/10/21 14:29 MA (Rec: 07/10/21 15:14 MA [id number]) OP-PT Subjective Patient Comments Patient Comments I did all my exercises today and rode my bike PT-OP-F Manual Assessment Start: 06/24/21 12:42 Freq: Status: Active Protocol: Document 06/24/21 13:55 HH (Rec: 06/24/21 14:21 HH [email or web address]) Manual Assessments Soft Tissue Assessment Soft Tissue Mobility Assessment significant hypertonicity at L SIJ region, gluteal muscle group and gluteal medius PT-OP-G Mobility & Gait Start: 06/24/21 12:42 Freq: Status: Active Protocol: Document 06/24/21 13:55 HH (Rec: 06/24/21 14:21 HH [email or web address]) OP Gait Assessment Gait Deviations General Gait Pattern Antalgic,Decreased Stride Length,Decreased Feet Clearance Factors Limiting Gait Function Factors Limiting Gait Function Decreased Activity Tolerance, Decreased Strength,Limited Range of Motion,Pain,Poor Balance Comments Gait Comments pt is wobbly with her gait. She often loses balance during stance phase of LLE. She primarily WB via RLE d/t pain on LLE PT-OP-H Neuro Start: 06/24/21 12:42 Freq: Status: Active Protocol: Document 06/24/21 13:55 HH (Rec: 06/24/21 14:21 HH [email or web address]) Sensation Evaluation Gross Sensation Gross Sensation Left LE Impaired Sensation Description Numbness Dermatome Impairments L5 Comments Summary Comments decreased sensation to touch lateral thigh, medial chavira and lateral chavira and dorsal aspect of big toe and 2nd toe. Deep Tendon Reflex & Clonus Assessment Deep Tendon Reflex Bilateral Achilles Deep Tendon Reflex 2+ Normal Bilateral Patellar Deep Tendon Reflex 2+ Normal PT-OP-J Posture/Palpation/Skin Start: 06/24/21 12:42 Freq: Status: Active Protocol: Document 06/24/21 13:55 HH (Rec: 06/24/21 14:21 [email or web address]) Posture Evaluation Position Standing Evaluation View Anterior Weight Distribution Weight Shifted Right PT-OP-K Range of Motion Start: 06/24/21 12:42 Freq: Status: Active Protocol: Document 06/24/21 13:55 HH (Rec: 06/24/21 14:21 HH [email or web address]) Hip Goniometric Range of Motion Hip Right Active Hip ROM WFL Yes Straight Leg Raise 90 Left Active Hip ROM WFL No Testing Position Supine Straight Leg Raise 72 Comments radiating pain to L buttock and posterior thigh PT-OP-L Special Tests Start: 06/24/21 12:42 Freq: Status: Active Protocol: Document 06/24/21 13:55 HH (Rec: 06/24/21 14:21 [email or web address]) Special Tests Lumbar Spine Special Tests Straight Leg Raise Test Results +VE L Comments ASLR up to 70 with buttock pain Slump Test Results +VE L Comments pain at buttock and posterior thigh PT-OP-M Strength Start: 06/24/21 12:42 Freq: Status: Active Protocol: Document 06/24/21 13:55 HH (Rec: 06/24/21 14:21 [email or web address]) Hip Strength Hip Manual Muscle Testing Right Flexion (L2) 4+ Good+ Extension (S1) 4+ Good+ Abduction 4+ Good+ Adduction 4+ Good+ Left Flexion (L2) 4- Good- Extension (S1) 3+ Fair+ Abduction 3+ Fair+ Adduction 4- Good- Knee Strength Knee Manual Muscle Testing Right Flexion (S2) 4+ Good+ Extension (L3) 4+ Good+ Left Flexion (S2) 4+ Good+ Extension (L3) 4+ Good+ Ankle/Foot Strength Ankle and Foot Manual Muscle Testing Right Dorsiflexion (L4) 5 Normal Plantarflexion (S1) 5 Normal Inversion 5 Normal Eversion (S1) 5 Normal Left Dorsiflexion (L4) 4 Good Plantarflexion (S1) 4+ Good+ Inversion 5 Normal Eversion (S1) 5 Normal Toe Strength Toe Manual Muscle Testing Right Great Toe Flexion 5 Normal Left Great Toe Flexion 3+ Fair+ PT-OP-Q Treatments Start: 06/24/21 12:42 Freq: Status: Active Protocol: Document 07/10/21 14:29 MA (Rec: 07/10/21 15:14 MA [email or web address]) Gym Equipment Shuttle Recovery SL squat Resistance 37# Shuttle Recovery Platform Stable Reps/Time 10 x3, R stronger than L, L foot pronation noted. Therapeutic Exercises Supine Exercises bridging Side bilateral Equipment Used red band Reps/Minutes 8 x2 Comments for HEP sciatic nerve glide Supine Exercise Name with DF Side bilateral Reps/Minutes 10 x2 Sidelying Exercises clamshell Sidelying Exercise Name during STM to glutes Side bilateral Reps/Minutes 10 x2 Comments L = significant weakness with shakiness. Manual Therapy Treatment Soft Tissue Mobilization glute Mobilization Type Myofascial Release,Sustained Pressure,Trigger Point Release Intensity/Depth Moderate Body Position Sidelying Comments piriformis, gluteal med and regine partially during clamshell (ER ) exercise Joint Mobilizations B hip Joint traction Direction bilateral Grade III Body Position Supine PT-OP-T Assessment and Plan Start: 06/24/21 12:42 Freq: Status: Active Protocol: Document 07/10/21 14:29 MA (Rec: 07/10/21 15:14 MA [id number]) Physical Therapy Assessment Goals activity tolerance Impairment pt is unable to tolerate any walking and staning activities Short Term Goal (STG) pt will show improved LLE strength and stability to normalize her gait with symmetrical stance phase bilaterally STG Duration 5 weeks Drafter (Cad) Electronic Goal (LTG) pt will show improved LLE strength and stability to be able to walk 2 miles x4 times a week LTG Duration 10 weeks neural tension test Impairment significant radiating pain on LLE with ASLR and slump test Short Term Goal (STG) pt will have pain no more than 2 during ASLR and slump test to show reduce neural tension STG Duration 5 weeks Residential Goal (LTG) pt will not have radiating symptoms during ASLR and slump test to show reduce neural tension LTG Duration 10 weeks Owestry Impairment pt scores 44 on Owestry Short Term Goal (STG) pt will score < 35 on Owestry to show improvements in mobility and strength STG Duration 5 weeks Drafter (Cad) Electronic Goal (LTG) pt will score < 25 on Owestry to show improvements in mobility and strength LTG Duration 10 weeks Assessment Summary Assessment Pt feels the leg press helps her feel like she is strengthening without pain and requests to continue with it this session. During leg press , she needs minor cues for L foot mechanics to avoid pronation and her L knee adducting. She is now taking 2 pain pills 2x/day for her pain but feels she is starting to need them less. She feels her HEp exercises have been helping and she has less nerve pain down LLE since starting therapy. Physical Therapy Plan Frequency and Duration Frequency of Treatment 2x/Week Duration of Treatment 10 weeks Plan of Care Start Date 06/24/21 Plan of Care End Date 09/07/21 Therapeutic Interventions Therapeutic Interventions Aquatic Therapy,Balance Training,Gait Training,Home Exercise Program,Joint Mobilizations,Manual Therapy, Neuromuscular Re-education, Patient/Caregiver Education, Self-Care/Home Management,Soft Tissue Mobilization,Taping, Therapeutic Activities, Therapeutic Exercises Modalities Cold Pack/Ice Massage,Electric Stimulation,Hot Packs, Infrared Therapy,Traction- Mechanical,Ultrasound Next Visit Focus/Plan Next Note Type Treatment Note Next Visit Plan LLE traction STM on glute, TFL nerve lien gilbert, figure 4
--- NOTE | 2021-07-13 15:56 | PT.OTN ---
Current Diagnoses Spinal stenosis, lumbar region without neurogenic claudication (07/13/21) Physical Therapy Treatment Note PT-OP-A Visit Information Start: 06/24/21 12:42 Freq: Status: Active Protocol: Document 07/13/21 15:08 MA (Rec: 07/13/21 15:56 MA [id number]) Out-Patient Physical Therapy Visit Information Visit Information Visit Type Treatment Note Visit Start Time 15:10 Visit Stop Time 15:53 Total Visit Minutes 43 Visit Number 05/18 Number of VP CLIENT SERVICES Visits 2 Precautions Precautions post op L5-S1 fusion 05/01/21 PT-OP-B Current Condition Start: 06/24/21 12:42 Freq: Status: Active Protocol: Document 06/24/21 11:15 HH (Rec: 06/24/21 12:56 HH [email or web address]) Current Condition History of Current Condition Onset Date 05/01/21 Current Complaints Sacral fx, Chronic LBP, radiating pain to L LE, difficulty in walking History of Current Condition Li is a 71yo female here s/p 8 weeks L5-S1 fusion for her R leg pain by surgeon Dr. Serna from [facility] at [place]. Pt was recovering well for the first 3 days but woke up with severe pain. She went to ER and was dx with sacral fx. Pt has been experiencing severe pain to her L buttock and leg since then with difficulty with any WB activities. She is currently approx 10 Gabapentin and 3 tylenol a day for pain control. She states she has been getting better and able to start walking again recently. She noticed she has new onset of numbness to L lateral thigh and calf since surgery. She currently has to bear weight mostly on RLE to walk to reduce pain. Prior to surgery, pt was very active and walked 3-5 miles a day with her dog and participated 3-4 times aquatic aerobics at the [facility]. Prior Treatments and Tests pt had a f/u with surgeon last week and she stated MD told her that her sacrum is healing properly. No precautions noted. ACDF C3-C7 with good recovery. Future Testing and Treatments Planned pt stated her surgeon might recommend surgical clean up if her symptoms will not improve. Treatment Goals Patient/Caregiver Goals 1. to be able to return daily walking up to 3-5 miles indepenently 2. to be able to complete house chores again 3. participate aquatic aerobic class 3-4 times a week Prior Functional Status Baseline Function- ADL's Independent Baseline Function- Mobility Independent Baseline Function- Other IND for all bookmaker map Current Functional Impairments (Reported) Functional Limitations- ADL's pt has to hire a hospitality house supervisor once a week to assist pt for laundry, vacumming, sweeping the floor. PT-OP-C Subjective Start: 06/24/21 12:42 Freq: Status: Active Protocol: Document 07/13/21 15:08 MA (Rec: 07/13/21 15:56 MA [id number]) OP-PT Subjective Patient Comments Patient Comments I didn't do anything today and yet I feel so tired PT-OP-F Manual Assessment Start: 06/24/21 12:42 Freq: Status: Active Protocol: Document 06/24/21 13:55 HH (Rec: 06/24/21 14:21 HH [email or web address]) Manual Assessments Soft Tissue Assessment Soft Tissue Mobility Assessment significant hypertonicity at L SIJ region, gluteal muscle group and gluteal medius PT-OP-G Mobility & Gait Start: 06/24/21 12:42 Freq: Status: Active Protocol: Document 06/24/21 13:55 HH (Rec: 06/24/21 14:21 HH [email or web address]) OP Gait Assessment Gait Deviations General Gait Pattern Antalgic,Decreased Stride Length,Decreased Feet Clearance Factors Limiting Gait Function Factors Limiting Gait Function Decreased Activity Tolerance, Decreased Strength,Limited Range of Motion,Pain,Poor Balance Comments Gait Comments pt is wobbly with her gait. She often loses balance during stance phase of LLE. She primarily WB via RLE d/t pain on LLE PT-OP-H Neuro Start: 06/24/21 12:42 Freq: Status: Active Protocol: Document 06/24/21 13:55 HH (Rec: 06/24/21 14:21 HH [email or web address]) Sensation Evaluation Gross Sensation Gross Sensation Left LE Impaired Sensation Description Numbness Dermatome Impairments L5 Comments Summary Comments decreased sensation to touch lateral thigh, medial chavira and lateral chavira and dorsal aspect of big toe and 2nd toe. Deep Tendon Reflex & Clonus Assessment Deep Tendon Reflex Bilateral Achilles Deep Tendon Reflex 2+ Normal Bilateral Patellar Deep Tendon Reflex 2+ Normal PT-OP-J Posture/Palpation/Skin Start: 06/24/21 12:42 Freq: Status: Active Protocol: Document 06/24/21 13:55 HH (Rec: 06/24/21 14:21 [email or web address]) Posture Evaluation Position Standing Evaluation View Anterior Weight Distribution Weight Shifted Right PT-OP-K Range of Motion Start: 06/24/21 12:42 Freq: Status: Active Protocol: Document 06/24/21 13:55 HH (Rec: 06/24/21 14:21 HH [email or web address]) Hip Goniometric Range of Motion Hip Right Active Hip ROM WFL Yes Straight Leg Raise 90 Left Active Hip ROM WFL No Testing Position Supine Straight Leg Raise 72 Comments radiating pain to L buttock and posterior thigh PT-OP-L Special Tests Start: 06/24/21 12:42 Freq: Status: Active Protocol: Document 06/24/21 13:55 HH (Rec: 06/24/21 14:21 [email or web address]) Special Tests Lumbar Spine Special Tests Straight Leg Raise Test Results +VE L Comments ASLR up to 70 with buttock pain Slump Test Results +VE L Comments pain at buttock and posterior thigh PT-OP-M Strength Start: 06/24/21 12:42 Freq: Status: Active Protocol: Document 06/24/21 13:55 HH (Rec: 06/24/21 14:21 HH [email or web address]) Hip Strength Hip Manual Muscle Testing Right Flexion (L2) 4+ Good+ Extension (S1) 4+ Good+ Abduction 4+ Good+ Adduction 4+ Good+ Left Flexion (L2) 4- Good- Extension (S1) 3+ Fair+ Abduction 3+ Fair+ Adduction 4- Good- Knee Strength Knee Manual Muscle Testing Right Flexion (S2) 4+ Good+ Extension (L3) 4+ Good+ Left Flexion (S2) 4+ Good+ Extension (L3) 4+ Good+ Ankle/Foot Strength Ankle and Foot Manual Muscle Testing Right Dorsiflexion (L4) 5 Normal Plantarflexion (S1) 5 Normal Inversion 5 Normal Eversion (S1) 5 Normal Left Dorsiflexion (L4) 4 Good Plantarflexion (S1) 4+ Good+ Inversion 5 Normal Eversion (S1) 5 Normal Toe Strength Toe Manual Muscle Testing Right Great Toe Flexion 5 Normal Left Great Toe Flexion 3+ Fair+ PT-OP-Q Treatments Start: 06/24/21 12:42 Freq: Status: Active Protocol: Document 07/13/21 15:08 MA (Rec: 07/13/21 15:56 MA [id number]) Gym Equipment Shuttle Recovery SL squat Resistance 37# Shuttle Recovery Platform Stable Reps/Time 10 x3, R stronger than L, L foot pronation noted. Therapeutic Exercises Supine Exercises bridging Side bilateral Equipment Used red band Reps/Minutes 10 x 2 Comments for HEP sciatic nerve glide Supine Exercise Name with DF Side bilateral Reps/Minutes 10 x2 Sitting Exercises ankle eversion Sitting Exercise Name eversion Equipment Used level 2 band Reps/Minutes 10 x2 Comments for HEP Standing Exercises calf raises Side bilateral Reps/Minutes 10 x2 Comments for HEP Manual Therapy Treatment Soft Tissue Mobilization TFL Mobilization Type Manual Lymphatic Drainage, Sustained Pressure,Trigger Point Release Intensity/Depth Moderate Body Position Sidelying glute Mobilization Type Myofascial Release,Sustained Pressure,Trigger Point Release Intensity/Depth Moderate Body Position Sidelying Comments piriformis, gluteal med and regine partially during clamshell (ER ) exercise Joint Mobilizations B hip Joint traction Direction bilateral Grade III Body Position Supine PT-OP-T Assessment and Plan Start: 06/24/21 12:42 Freq: Status: Active Protocol: Document 07/13/21 15:08 MA (Rec: 07/13/21 15:56 MA [id number]) Physical Therapy Assessment Goals activity tolerance Impairment pt is unable to tolerate any walking and staning activities Short Term Goal (STG) pt will show improved LLE strength and stability to normalize her gait with symmetrical stance phase bilaterally STG Duration 5 weeks Farm Mortgage Agent Goal (LTG) pt will show improved LLE strength and stability to be able to walk 2 miles x4 times a week LTG Duration 10 weeks neural tension test Impairment significant radiating pain on LLE with ASLR and slump test Short Term Goal (STG) pt will have pain no more than 2 during ASLR and slump test to show reduce neural tension STG Duration 5 weeks Mcc Goal (LTG) pt will not have radiating symptoms during ASLR and slump test to show reduce neural tension LTG Duration 10 weeks Owestry Impairment pt scores 44 on Owestry Short Term Goal (STG) pt will score < 35 on Owestry to show improvements in mobility and strength STG Duration 5 weeks Mcc Goal (LTG) pt will score < 25 on Owestry to show improvements in mobility and strength LTG Duration 10 weeks Assessment Summary Assessment Pt requests reviewing ankle eversion exercise from HEP. She has greater difficulty with LLE> RLE and requires both verbal and manual cues for correct form. She feels her pain pills and heat are helping her manage any pain she is still having from surgery. Her nerve pain has improved but she still gets ocassional nerve pain on lateral L calf. She does better self-correcting eversion during leg press this session. Printed out visual reference for eversion exercise with band for pt's HEP. Physical Therapy Plan Frequency and Duration Frequency of Treatment 2x/Week Duration of Treatment 10 weeks Plan of Care Start Date 06/24/21 Plan of Care End Date 09/07/21 Therapeutic Interventions Therapeutic Interventions Aquatic Therapy,Balance Training,Gait Training,Home Exercise Program,Joint Mobilizations,Manual Therapy, Neuromuscular Re-education, Patient/Caregiver Education, Self-Care/Home Management,Soft Tissue Mobilization,Taping, Therapeutic Activities, Therapeutic Exercises Modalities Cold Pack/Ice Massage,Electric Stimulation,Hot Packs, Infrared Therapy,Traction- Mechanical,Ultrasound Next Visit Focus/Plan Next Note Type Treatment Note Next Visit Plan review eversion exercise. Print out 4-way ankle strengthening if approproate. LLE traction STM on glute, TFL nerve lien gilbert, figure 4
--- NOTE | 2021-07-17 13:56 | PT.OTN ---
Current Diagnoses Spinal stenosis, lumbar region without neurogenic claudication (07/17/21) Physical Therapy Treatment Note PT-OP-A Visit Information Start: 06/24/21 12:42 Freq: Status: Active Protocol: Document 07/17/21 13:01 HH (Rec: 07/17/21 13:56 [id number]) Out-Patient Physical Therapy Visit Information Visit Information Visit Type Treatment Note Visit Note Pt will have f/u with surgeon again on 08/11/21 pt is taking 2 gabapentin in the morning, 2 in the afternoon. Visit Start Time 13:03 Visit Stop Time 13:45 Total Visit Minutes 42 Visit Number 06/18 Number of DROP HAMMER MECHANIC Visits 0 PT-OP-B Current Condition Start: 06/24/21 12:42 Freq: Status: Active Protocol: Document 06/24/21 11:15 HH (Rec: 06/24/21 12:56 [email or web address]) Current Condition History of Current Condition Onset Date 05/01/21 Current Complaints Sacral fx, Chronic LBP, radiating pain to L LE, difficulty in walking History of Current Condition Li is a 71yo female here s/p 8 weeks L5-S1 fusion for her R leg pain by surgeon Dr. Serna from [place] at [place]. Pt was recovering well for the first 3 days but woke up with severe pain. She went to ER and was dx with sacral fx. Pt has been experiencing severe pain to her L buttock and leg since then with difficulty with any WB activities. She is currently approx 10 Gabapentin and 3 tylenol a day for pain control. She states she has been getting better and able to start walking again recently. She noticed she has new onset of numbness to L lateral thigh and calf since surgery. She currently has to bear weight mostly on RLE to walk to reduce pain. Prior to surgery, pt was very active and walked 3-5 miles a day with her dog and participated 3-4 times aquatic aerobics at the [facility]. Prior Treatments and Tests pt had a f/u with surgeon last week and she stated MD told her that her sacrum is healing properly. No precautions noted. ACDF C3-C7 with good recovery. Future Testing and Treatments Planned pt stated her surgeon might recommend surgical clean up if her symptoms will not improve. Treatment Goals Patient/Caregiver Goals 1. to be able to return daily walking up to 3-5 miles indepenently 2. to be able to complete house chores again 3. 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 PT-OP-C Subjective Start: 06/24/21 12:42 Freq: Status: Active Protocol: Document 07/17/21 13:01 HH (Rec: 07/17/21 13:56 [id number]) OP-PT Subjective Patient Comments Patient Comments Im doing pretty well at this point. Im going to the pool and now. Patient Reported Progress Improving PT-OP-F Manual Assessment Start: 06/24/21 12:42 Freq: Status: Active Protocol: Document 06/24/21 13:55 HH (Rec: 06/24/21 14:21 [email or web address]) Manual Assessments Soft Tissue Assessment Soft Tissue Mobility Assessment significant hypertonicity at L SIJ region, gluteal muscle group and gluteal medius PT-OP-G Mobility & Gait Start: 06/24/21 12:42 Freq: Status: Active Protocol: Document 06/24/21 13:55 HH (Rec: 06/24/21 14:21 [email or web address]) OP Gait Assessment Gait Deviations General Gait Pattern Antalgic,Decreased Stride Length,Decreased Feet Clearance Factors Limiting Gait Function Factors Limiting Gait Function Decreased Activity Tolerance, Decreased Strength,Limited Range of Motion,Pain,Poor Balance Comments Gait Comments pt is wobbly with her gait. She often loses balance during stance phase of LLE. She primarily WB via RLE d/t pain on LLE PT-OP-H Neuro Start: 06/24/21 12:42 Freq: Status: Active Protocol: Document 06/24/21 13:55 HH (Rec: 06/24/21 14:21 [email or web address]) Sensation Evaluation Gross Sensation Gross Sensation Left LE Impaired Sensation Description Numbness Dermatome Impairments L5 Comments Summary Comments decreased sensation to touch lateral thigh, medial chavira and lateral chavira and dorsal aspect of big toe and 2nd toe. Deep Tendon Reflex & Clonus Assessment Deep Tendon Reflex Bilateral Achilles Deep Tendon Reflex 2+ Normal Bilateral Patellar Deep Tendon Reflex 2+ Normal PT-OP-J Posture/Palpation/Skin Start: 06/24/21 12:42 Freq: Status: Active Protocol: Document 06/24/21 13:55 HH (Rec: 06/24/21 14:21 [email or web address]) Posture Evaluation Position Standing Evaluation View Anterior Weight Distribution Weight Shifted Right PT-OP-K Range of Motion Start: 06/24/21 12:42 Freq: Status: Active Protocol: Document 06/24/21 13:55 HH (Rec: 06/24/21 14:21 HH [email or web address]) Hip Goniometric Range of Motion Hip Right Active Hip ROM WFL Yes Straight Leg Raise 90 Left Active Hip ROM WFL No Testing Position Supine Straight Leg Raise 72 Comments radiating pain to L buttock and posterior thigh PT-OP-L Special Tests Start: 06/24/21 12:42 Freq: Status: Active Protocol: Document 06/24/21 13:55 HH (Rec: 06/24/21 14:21 [email or web address]) Special Tests Lumbar Spine Special Tests Straight Leg Raise Test Results +VE L Comments ASLR up to 70 with buttock pain Slump Test Results +VE L Comments pain at buttock and posterior thigh PT-OP-M Strength Start: 06/24/21 12:42 Freq: Status: Active Protocol: Document 06/24/21 13:55 HH (Rec: 06/24/21 14:21 [email or web address]) Hip Strength Hip Manual Muscle Testing Right Flexion (L2) 4+ Good+ Extension (S1) 4+ Good+ Abduction 4+ Good+ Adduction 4+ Good+ Left Flexion (L2) 4- Good- Extension (S1) 3+ Fair+ Abduction 3+ Fair+ Adduction 4- Good- Knee Strength Knee Manual Muscle Testing Right Flexion (S2) 4+ Good+ Extension (L3) 4+ Good+ Left Flexion (S2) 4+ Good+ Extension (L3) 4+ Good+ Ankle/Foot Strength Ankle and Foot Manual Muscle Testing Right Dorsiflexion (L4) 5 Normal Plantarflexion (S1) 5 Normal Inversion 5 Normal Eversion (S1) 5 Normal Left Dorsiflexion (L4) 4 Good Plantarflexion (S1) 4+ Good+ Inversion 5 Normal Eversion (S1) 5 Normal Toe Strength Toe Manual Muscle Testing Right Great Toe Flexion 5 Normal Left Great Toe Flexion 3+ Fair+ PT-OP-Q Treatments Start: 06/24/21 12:42 Freq: Status: Active Protocol: Document 07/17/21 13:01 (Rec: 07/17/21 13:56 [id number]) Cardio Equipment Elliptical Duration (Minutes) 4 Resistance 1 Gym Equipment Shuttle Recovery SL squat Resistance 37# Shuttle Recovery Platform Stable Reps/Time 10 x3, R stronger than L, L foot pronation noted. Therapeutic Exercises Supine Exercises bridging Side bilateral Equipment Used red band Reps/Minutes 10 x 2 Comments for HEP Sitting Exercises ankle eversion Sitting Exercise Name eversion Equipment Used level 2 band Reps/Minutes 10 x2 Comments for HEP Standing Exercises crab walk Side bilateral Equipment Used yellow band on knees Reps/Minutes 20ft x 4 Gait Training Gait Activity heeltoe Level of Assistance CGA Surface ground level Distance/Duration 20 ft x8 Treatment Focus balance Comments tandem first but unsuccessful small steps with feet 5 inches apart. Pt is somewhat wobbly and needed CGA Manual Therapy Treatment Joint Mobilizations B hip Joint traction Direction bilateral Grade III Body Position Supine Neuro Re-Education Treatment Balance Activities blue foam Details weight shift then EC Surface blue foam Reps/Duration 10 Comments weight shift first with EO then static stance with EC PT-OP-T Assessment and Plan Start: 06/24/21 12:42 Freq: Status: Active Protocol: Document 07/17/21 13:01 (Rec: 07/17/21 13:56 [id number]) Physical Therapy Assessment Goals activity tolerance Impairment pt is unable to tolerate any walking and staning activities Short Term Goal (STG) pt will show improved LLE strength and stability to normalize her gait with symmetrical stance phase bilaterally STG Duration 5 weeks Centrifuge Operator Goal (LTG) pt will show improved LLE strength and stability to be able to walk 2 miles x4 times a week LTG Duration 10 weeks neural tension test Impairment significant radiating pain on LLE with ASLR and slump test Short Term Goal (STG) pt will have pain no more than 2 during ASLR and slump test to show reduce neural tension STG Duration 5 weeks Centrifuge Operator Goal (LTG) pt will not have radiating symptoms during ASLR and slump test to show reduce neural tension LTG Duration 10 weeks Owestry Impairment pt scores 44 on Owestry Short Term Goal (STG) pt will score < 35 on Owestry to show improvements in mobility and strength STG Duration 5 weeks Skilled Nursing Goal (LTG) pt will score < 25 on Owestry to show improvements in mobility and strength LTG Duration 10 weeks Assessment Summary Assessment Progress to more WB activities today. She did eliptical, crab walk, and balance ex without c/o. Will update her HEP next week. Physical Therapy Plan Frequency and Duration Frequency of Treatment 2x/Week Duration of Treatment 10 weeks Plan of Care Start Date 06/24/21 Plan of Care End Date 09/07/21 Therapeutic Interventions Therapeutic Interventions Aquatic Therapy,Balance Training,Gait Training,Home Exercise Program,Joint Mobilizations,Manual Therapy, Neuromuscular Re-education, Patient/Caregiver Education, Self-Care/Home Management,Soft Tissue Mobilization,Taping, Therapeutic Activities, Therapeutic Exercises Modalities Cold Pack/Ice Massage,Electric Stimulation,Hot Packs, Infrared Therapy,Traction- Mechanical,Ultrasound Next Visit Focus/Plan Next Note Type Treatment Note Next Visit Plan review eversion exercise. Print out 4-way ankle strengthening if approproate. LLE traction STM on glute, TFL nerve lien gilbert, figure 4
--- NOTE | 2021-07-20 14:33 | PT.OTN ---
Current Diagnoses Spinal stenosis, lumbar region without neurogenic claudication (07/20/21) Physical Therapy Treatment Note PT-OP-A Visit Information Start: 06/24/21 12:42 Freq: Status: Active Protocol: Document 07/20/21 13:48 HH (Rec: 07/20/21 14:33 HH [id number]) Out-Patient Physical Therapy Visit Information Visit Information Visit Type Treatment Note Visit Note Pt will have f/u with surgeon again on 08/11/21 pt is taking 2 gabapentin in the morning, 1 in the afternoon. Visit Start Time 13:48 Visit Stop Time 14:30 Total Visit Minutes 42 Visit Number 07/19 Number of TRANSMISSION WORKER Visits 0 PT-OP-B Current Condition Start: 06/24/21 12:42 Freq: Status: Active Protocol: Document 06/24/21 11:15 HH (Rec: 06/24/21 12:56 HH [email or web address]) Current Condition History of Current Condition Onset Date 05/01/21 Current Complaints Sacral fx, Chronic LBP, radiating pain to L LE, difficulty in walking History of Current Condition Li is a 71yo female here s/p 8 weeks L5-S1 fusion for her R leg pain by surgeon Dr. Serna from [place] at [place]. Pt was recovering well for the first 3 days but woke up with severe pain. She went to ER and was dx with sacral fx. Pt has been experiencing severe pain to her L buttock and leg since then with difficulty with any WB activities. She is currently approx 10 Gabapentin and 3 tylenol a day for pain control. She states she has been getting better and able to start walking again recently. She noticed she has new onset of numbness to L lateral thigh and calf since surgery. She currently has to bear weight mostly on RLE to walk to reduce pain. Prior to surgery, pt was very active and walked 3-5 miles a day with her dog and participated 3-4 times aquatic aerobics at the [facility]. Prior Treatments and Tests pt had a f/u with surgeon last week and she stated MD told her that her sacrum is healing properly. No precautions noted. ACDF C3-C7 with good recovery. Future Testing and Treatments Planned pt stated her surgeon might recommend surgical clean up if her symptoms will not improve. Treatment Goals Patient/Caregiver Goals 1. to be able to return daily walking up to 3-5 miles indepenently 2. to be able to complete house chores again 3. 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 PT-OP-C Subjective Start: 06/24/21 12:42 Freq: Status: Active Protocol: Document 07/20/21 13:48 HH (Rec: 07/20/21 14:33 HH [id number]) OP-PT Subjective Patient Comments Patient Comments Im down to 3 gabapentin a day now. I still have some tingling and numbness to my R middle toes and L lateral calf . Patient Reported Progress Improving PT-OP-F Manual Assessment Start: 06/24/21 12:42 Freq: Status: Active Protocol: Document 06/24/21 13:55 HH (Rec: 06/24/21 14:21 [email or web address]) Manual Assessments Soft Tissue Assessment Soft Tissue Mobility Assessment significant hypertonicity at L SIJ region, gluteal muscle group and gluteal medius PT-OP-G Mobility & Gait Start: 06/24/21 12:42 Freq: Status: Active Protocol: Document 06/24/21 13:55 HH (Rec: 06/24/21 14:21 HH [email or web address]) OP Gait Assessment Gait Deviations General Gait Pattern Antalgic,Decreased Stride Length,Decreased Feet Clearance Factors Limiting Gait Function Factors Limiting Gait Function Decreased Activity Tolerance, Decreased Strength,Limited Range of Motion,Pain,Poor Balance Comments Gait Comments pt is wobbly with her gait. She often loses balance during stance phase of LLE. She primarily WB via RLE d/t pain on LLE PT-OP-H Neuro Start: 06/24/21 12:42 Freq: Status: Active Protocol: Document 06/24/21 13:55 HH (Rec: 06/24/21 14:21 [email or web address]) Sensation Evaluation Gross Sensation Gross Sensation Left LE Impaired Sensation Description Numbness Dermatome Impairments L5 Comments Summary Comments decreased sensation to touch lateral thigh, medial chavira and lateral chavira and dorsal aspect of big toe and 2nd toe. Deep Tendon Reflex & Clonus Assessment Deep Tendon Reflex Bilateral Achilles Deep Tendon Reflex 2+ Normal Bilateral Patellar Deep Tendon Reflex 2+ Normal PT-OP-J Posture/Palpation/Skin Start: 06/24/21 12:42 Freq: Status: Active Protocol: Document 06/24/21 13:55 HH (Rec: 06/24/21 14:21 [email or web address]) Posture Evaluation Position Standing Evaluation View Anterior Weight Distribution Weight Shifted Right PT-OP-K Range of Motion Start: 06/24/21 12:42 Freq: Status: Active Protocol: Document 06/24/21 13:55 HH (Rec: 06/24/21 14:21 [email or web address]) Hip Goniometric Range of Motion Hip Right Active Hip ROM WFL Yes Straight Leg Raise 90 Left Active Hip ROM WFL No Testing Position Supine Straight Leg Raise 72 Comments radiating pain to L buttock and posterior thigh PT-OP-L Special Tests Start: 06/24/21 12:42 Freq: Status: Active Protocol: Document 06/24/21 13:55 HH (Rec: 06/24/21 14:21 [email or web address]) Special Tests Lumbar Spine Special Tests Straight Leg Raise Test Results +VE L Comments ASLR up to 70 with buttock pain Slump Test Results +VE L Comments pain at buttock and posterior thigh PT-OP-M Strength Start: 06/24/21 12:42 Freq: Status: Active Protocol: Document 06/24/21 13:55 HH (Rec: 06/24/21 14:21 [email or web address]) Hip Strength Hip Manual Muscle Testing Right Flexion (L2) 4+ Good+ Extension (S1) 4+ Good+ Abduction 4+ Good+ Adduction 4+ Good+ Left Flexion (L2) 4- Good- Extension (S1) 3+ Fair+ Abduction 3+ Fair+ Adduction 4- Good- Knee Strength Knee Manual Muscle Testing Right Flexion (S2) 4+ Good+ Extension (L3) 4+ Good+ Left Flexion (S2) 4+ Good+ Extension (L3) 4+ Good+ Ankle/Foot Strength Ankle and Foot Manual Muscle Testing Right Dorsiflexion (L4) 5 Normal Plantarflexion (S1) 5 Normal Inversion 5 Normal Eversion (S1) 5 Normal Left Dorsiflexion (L4) 4 Good Plantarflexion (S1) 4+ Good+ Inversion 5 Normal Eversion (S1) 5 Normal Toe Strength Toe Manual Muscle Testing Right Great Toe Flexion 5 Normal Left Great Toe Flexion 3+ Fair+ PT-OP-Q Treatments Start: 06/24/21 12:42 Freq: Status: Active Protocol: Document 07/20/21 13:48 HH (Rec: 07/20/21 14:33 [id number]) Cardio Equipment Elliptical Duration (Minutes) 4 Resistance 1 Other quad soreness noted. Bicycle (Upright) Duration (Minutes) 5 Resistance 5 Gym Equipment Shuttle Recovery SL squat Resistance 37# Shuttle Recovery Platform Stable Reps/Time 10 x3, R stronger than L, L foot pronation noted. Therapeutic Exercises Supine Exercises bridging Side bilateral Equipment Used red band Reps/Minutes 10 x 2 Comments for HEP Sitting Exercises LAQ Equipment Used yellow band Reps/Minutes 10 x2 Comments cues on quad activation. Standing Exercises crab walk Side bilateral Equipment Used yellow band on knees Reps/Minutes 20ft x 4 balance Standing Exercise Name blue foam, EC and ant post weight shift. Reps/Minutes 10 x2 Comments for HEP Manual Therapy Treatment Soft Tissue Mobilization glute Mobilization Type Myofascial Release,Sustained Pressure,Trigger Point Release Intensity/Depth Moderate Body Position Sidelying Comments piriformis, gluteal med and regine Joint Mobilizations B hip Joint traction Direction bilateral Grade III Body Position Supine Neuro Re-Education Treatment Balance Activities blue foam Details weight shift then EC Surface blue foam Reps/Duration 8 Comments weight shift first with EO then static stance with EC PT-OP-T Assessment and Plan Start: 06/24/21 12:42 Freq: Status: Active Protocol: Document 07/20/21 13:48 (Rec: 07/20/21 14:33 [id number]) Physical Therapy Assessment Goals activity tolerance Impairment pt is unable to tolerate any walking and staning activities Short Term Goal (STG) pt will show improved LLE strength and stability to normalize her gait with symmetrical stance phase bilaterally STG Duration 5 weeks Screen Cleaner Goal (LTG) pt will show improved LLE strength and stability to be able to walk 2 miles x4 times a week LTG Duration 10 weeks neural tension test Impairment significant radiating pain on LLE with ASLR and slump test Short Term Goal (STG) pt will have pain no more than 2 during ASLR and slump test to show reduce neural tension STG Duration 5 weeks Screen Cleaner Goal (LTG) pt will not have radiating symptoms during ASLR and slump test to show reduce neural tension LTG Duration 10 weeks Owestry Impairment pt scores 44 on Owestry Short Term Goal (STG) pt will score < 35 on Owestry to show improvements in mobility and strength STG Duration 5 weeks Screen Cleaner Goal (LTG) pt will score < 25 on Owestry to show improvements in mobility and strength LTG Duration 10 weeks Assessment Summary Assessment Added LAQ today since pt reports of constant tightness/ pain at knee cap from OA. She castro very well on leg press after LAQ. Conslidated her HEP to more WB position. Physical Therapy Plan Frequency and Duration Frequency of Treatment 2x/Week Duration of Treatment 10 weeks Plan of Care Start Date 06/24/21 Plan of Care End Date 09/07/21 Therapeutic Interventions Therapeutic Interventions Aquatic Therapy,Balance Training,Gait Training,Home Exercise Program,Joint Mobilizations,Manual Therapy, Neuromuscular Re-education, Patient/Caregiver Education, Self-Care/Home Management,Soft Tissue Mobilization,Taping, Therapeutic Activities, Therapeutic Exercises Modalities Cold Pack/Ice Massage,Electric Stimulation,Hot Packs, Infrared Therapy,Traction- Mechanical,Ultrasound Next Visit Focus/Plan Next Note Type Progress Note Next Visit Plan review eversion exercise. Print out 4-way ankle strengthening if approproate. LLE traction STM on glute, TFL nerve lien gilbert, figure 4
--- NOTE | 2021-07-24 14:33 | PT.OTN ---
Current Diagnoses Spinal stenosis, lumbar region without neurogenic claudication (07/24/21) Physical Therapy Treatment Note PT-OP-A Visit Information Start: 06/24/21 12:42 Freq: Status: Active Protocol: Document 07/24/21 13:49 HH (Rec: 07/24/21 14:32 HH [id number]) Out-Patient Physical Therapy Visit Information Visit Information Visit Type Progress Note Visit Note Pt will have f/u with surgeon again on 08/11/21 pt is taking 1 gabapentin in the morning, 1 in the afternoon. Visit Start Time 13:48 Visit Stop Time 14:31 Total Visit Minutes 43 Visit Number 08/18 Number of CATTLE RANCHER Visits 0 PT-OP-B Current Condition Start: 06/24/21 12:42 Freq: Status: Active Protocol: Document 06/24/21 11:15 HH (Rec: 06/24/21 12:56 HH [email or web address]) Current Condition History of Current Condition Onset Date 05/01/21 Current Complaints Sacral fx, Chronic LBP, radiating pain to L LE, difficulty in walking History of Current Condition Li is a 71yo female here s/p 8 weeks L5-S1 fusion for her R leg pain by surgeon Dr. Serna from [place] at [facility]. Pt was recovering well for the first 3 days but woke up with severe pain. She went to ER and was dx with sacral fx. Pt has been experiencing severe pain to her L buttock and leg since then with difficulty with any WB activities. She is currently approx 10 Gabapentin and 3 tylenol a day for pain control. She states she has been getting better and able to start walking again recently. She noticed she has new onset of numbness to L lateral thigh and calf since surgery. She currently has to bear weight mostly on RLE to walk to reduce pain. Prior to surgery, pt was very active and walked 3-5 miles a day with her dog and participated 3-4 times aquatic aerobics at the [facility]. Prior Treatments and Tests pt had a f/u with surgeon last week and she stated MD told her that her sacrum is healing properly. No precautions noted. ACDF C3-C7 with good recovery. Future Testing and Treatments Planned pt stated her surgeon might recommend surgical clean up if her symptoms will not improve. Treatment Goals Patient/Caregiver Goals 1. to be able to return daily walking up to 3-5 miles indepenently 2. to be able to complete house chores again 3. 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 PT-OP-C Subjective Start: 06/24/21 12:42 Freq: Status: Active Protocol: Document 07/24/21 13:49 HH (Rec: 07/24/21 14:32 HH [id number]) OP-PT Subjective Patient Comments Patient Comments Im taking only 2 gabapentin in total a day. I still get tired easily after standing for awhile. Patient Reported Progress Improving Patient Questionnaires Oswestry Low Back Index Oswestry Score 14 Oswestry Impairment 1 to 19% Impaired (Score 1-19) PT-OP-F Manual Assessment Start: 06/24/21 12:42 Freq: Status: Active Protocol: Document 06/24/21 13:55 HH (Rec: 06/24/21 14:21 [email or web address]) Manual Assessments Soft Tissue Assessment Soft Tissue Mobility Assessment significant hypertonicity at L SIJ region, gluteal muscle group and gluteal medius PT-OP-G Mobility & Gait Start: 06/24/21 12:42 Freq: Status: Active Protocol: Document 06/24/21 13:55 HH (Rec: 06/24/21 14:21 [email or web address]) OP Gait Assessment Gait Deviations General Gait Pattern Antalgic,Decreased Stride Length,Decreased Feet Clearance Factors Limiting Gait Function Factors Limiting Gait Function Decreased Activity Tolerance, Decreased Strength,Limited Range of Motion,Pain,Poor Balance Comments Gait Comments pt is wobbly with her gait. She often loses balance during stance phase of LLE. She primarily WB via RLE d/t pain on LLE PT-OP-H Neuro Start: 06/24/21 12:42 Freq: Status: Active Protocol: Document 06/24/21 13:55 HH (Rec: 06/24/21 14:21 [email or web address]) Sensation Evaluation Gross Sensation Gross Sensation Left LE Impaired Sensation Description Numbness Dermatome Impairments L5 Comments Summary Comments decreased sensation to touch lateral thigh, medial chavira and lateral chavira and dorsal aspect of big toe and 2nd toe. Deep Tendon Reflex & Clonus Assessment Deep Tendon Reflex Bilateral Achilles Deep Tendon Reflex 2+ Normal Bilateral Patellar Deep Tendon Reflex 2+ Normal PT-OP-J Posture/Palpation/Skin Start: 06/24/21 12:42 Freq: Status: Active Protocol: Document 06/24/21 13:55 HH (Rec: 06/24/21 14:21 [email or web address]) Posture Evaluation Position Standing Evaluation View Anterior Weight Distribution Weight Shifted Right PT-OP-K Range of Motion Start: 06/24/21 12:42 Freq: Status: Active Protocol: Document 06/24/21 13:55 HH (Rec: 06/24/21 14:21 [email or web address]) Hip Goniometric Range of Motion Hip Right Active Hip ROM WFL Yes Straight Leg Raise 90 Left Active Hip ROM WFL No Testing Position Supine Straight Leg Raise 72 Comments radiating pain to L buttock and posterior thigh PT-OP-L Special Tests Start: 06/24/21 12:42 Freq: Status: Active Protocol: Document 06/24/21 13:55 HH (Rec: 06/24/21 14:21 [email or web address]) Special Tests Lumbar Spine Special Tests Straight Leg Raise Test Results +VE L Comments ASLR up to 70 with buttock pain Slump Test Results +VE L Comments pain at buttock and posterior thigh PT-OP-M Strength Start: 06/24/21 12:42 Freq: Status: Active Protocol: Document 06/24/21 13:55 HH (Rec: 06/24/21 14:21 [email or web address]) Hip Strength Hip Manual Muscle Testing Right Flexion (L2) 4+ Good+ Extension (S1) 4+ Good+ Abduction 4+ Good+ Adduction 4+ Good+ Left Flexion (L2) 4- Good- Extension (S1) 3+ Fair+ Abduction 3+ Fair+ Adduction 4- Good- Knee Strength Knee Manual Muscle Testing Right Flexion (S2) 4+ Good+ Extension (L3) 4+ Good+ Left Flexion (S2) 4+ Good+ Extension (L3) 4+ Good+ Ankle/Foot Strength Ankle and Foot Manual Muscle Testing Right Dorsiflexion (L4) 5 Normal Plantarflexion (S1) 5 Normal Inversion 5 Normal Eversion (S1) 5 Normal Left Dorsiflexion (L4) 4 Good Plantarflexion (S1) 4+ Good+ Inversion 5 Normal Eversion (S1) 5 Normal Toe Strength Toe Manual Muscle Testing Right Great Toe Flexion 5 Normal Left Great Toe Flexion 3+ Fair+ PT-OP-Q Treatments Start: 06/24/21 12:42 Freq: Status: Active Protocol: Document 07/24/21 13:49 HH (Rec: 07/24/21 14:32 [id number]) Cardio Equipment Elliptical Duration (Minutes) 4 Resistance 1 Other quad soreness noted. Gym Equipment Shuttle Recovery SL squat Resistance 37#, #50 Shuttle Recovery Platform Stable Reps/Time 10 x5, R stronger than L, L foot pronation noted. Therapeutic Exercises Supine Exercises sciatic nerve glide Supine Exercise Name with DF and inv, sural nerve biased Side bilateral Reps/Minutes 10 x2 Sitting Exercises LAQ Equipment Used 5lbs ankle weight. Reps/Minutes 10 x2 Comments cues on quad activation. Manual Therapy Treatment Joint Mobilizations B hip Joint traction Direction bilateral Grade III Body Position Supine PT-OP-T Assessment and Plan Start: 06/24/21 12:42 Freq: Status: Active Protocol: Document 07/24/21 13:49 (Rec: 07/24/21 14:32 [id number]) Physical Therapy Assessment Goals activity tolerance Impairment pt is unable to tolerate any walking and staning activities Short Term Goal (STG) 07/24 goal met pt has been going to pool fitness class and gym3 times a week. pt will show improved LLE strength and stability to normalize her gait with symmetrical stance phase bilaterally STG Duration 5 weeks Alf Goal (LTG) pt will show improved LLE strength and stability to be able to walk 3 miles x4 times a week with her dog. LTG Duration 10 weeks neural tension test Impairment significant radiating pain on LLE with ASLR and slump test Short Term Goal (STG) pt will have pain no more than 2 during ASLR and slump test to show reduce neural tension STG Duration 5 weeks Alf Goal (LTG) 07/24 goal met pt does not have radiating symptoms during ASLR and slump test to show reduce neural tension LTG Duration 10 weeks Owestry Impairment pt scores 44 on Owestry Short Term Goal (STG) pt will score < 35 on Owestry to show improvements in mobility and strength STG Duration 5 weeks Alf Goal (LTG) 07/24 goal met pt scores 14 today. pt will score < 25 on Owestry to show improvements in mobility and strength LTG Duration 10 weeks Progress Towards Goals Progress Towards Goals Progressing Toward Goals Assessment Summary Assessment pt has shown good progress since evaluation. She is not positive for neural tension test. She has been going to fitness center and pool class 3 times a week. She is consistently showing increased activity tolerance and overall strength and mobility. Will progress her therex to more balance and WB activities related. Physical Therapy Plan Frequency and Duration Frequency of Treatment 2x/Week Duration of Treatment 10 weeks Plan of Care Start Date 06/24/21 Plan of Care End Date 09/07/21 Therapeutic Interventions Therapeutic Interventions Aquatic Therapy,Balance Training,Gait Training,Home Exercise Program,Joint Mobilizations,Manual Therapy, Neuromuscular Re-education, Patient/Caregiver Education, Self-Care/Home Management,Soft Tissue Mobilization,Taping, Therapeutic Activities, Therapeutic Exercises Modalities Cold Pack/Ice Massage,Electric Stimulation,Hot Packs, Infrared Therapy,Traction- Mechanical,Ultrasound Next Visit Focus/Plan Next Note Type Progress Note Next Visit Plan review eversion exercise. Print out 4-way ankle strengthening if approproate. LLE traction STM on glute, TFL nerve glide ofelia, figure 4
--- NOTE | 2021-07-27 14:29 | PT.OTN ---
Current Diagnoses Spinal stenosis, lumbar region without neurogenic claudication (07/27/21) Physical Therapy Treatment Note PT-OP-A Visit Information Start: 06/24/21 12:42 Freq: Status: Active Protocol: Document 07/27/21 13:49 HH (Rec: 07/27/21 14:29 HH [id number]) Out-Patient Physical Therapy Visit Information Visit Information Visit Type Treatment Note Visit Note Pt will have f/u with surgeon again on 08/11/21 pt is not taking gabapentin. Visit Start Time 13:46 Visit Stop Time 14:30 Total Visit Minutes 44 Visit Number 09/18 Number of HYDROELECTRIC PLANT TECHNICIAN Visits 0 PT-OP-B Current Condition Start: 06/24/21 12:42 Freq: Status: Active Protocol: Document 06/24/21 11:15 HH (Rec: 06/24/21 12:56 HH [email or web address]) Current Condition History of Current Condition Onset Date 05/01/21 Current Complaints Sacral fx, Chronic LBP, radiating pain to L LE, difficulty in walking History of Current Condition Li is a 71yo female here s/p 8 weeks L5-S1 fusion for her R leg pain by surgeon Dr. Serna from [place] at [place] [facility]. Pt was recovering well for the first 3 days but woke up with severe pain. She went to ER and was dx with sacral fx. Pt has been experiencing severe pain to her L buttock and leg since then with difficulty with any WB activities. She is currently approx 10 Gabapentin and 3 tylenol a day for pain control. She states she has been getting better and able to start walking again recently. She noticed she has new onset of numbness to L lateral thigh and calf since surgery. She currently has to bear weight mostly on RLE to walk to reduce pain. Prior to surgery, pt was very active and walked 3-5 miles a day with her dog and participated 3-4 times aquatic aerobics at the [employer] [place]. Prior Treatments and Tests pt had a f/u with surgeon last week and she stated MD told her that her sacrum is healing properly. No precautions noted. ACDF C3-C7 with good recovery. Future Testing and Treatments Planned pt stated her surgeon might recommend surgical clean up if her symptoms will not improve. Treatment Goals Patient/Caregiver Goals 1. to be able to return daily walking up to 3-5 miles indepenently 2. to be able to complete house chores again 3. participate aquatic aerobic class 3-4 times a week Prior Functional Status Baseline Function- ADL's Independent Baseline Function- Mobility Independent Baseline Function- Other IND for all dean Current Functional Impairments (Reported) Functional Limitations- ADL's pt has to hire a warehouseman once a week to assist pt for laundry, vacumming, sweeping the floor. PT-OP-C Subjective Start: 06/24/21 12:42 Freq: Status: Active Protocol: Document 07/27/21 13:49 HH (Rec: 07/27/21 14:29 HH [id number]) OP-PT Subjective Patient Comments Patient Comments Im not taking any Gabapentine since Tuesday and i have been walking 1 mile a day. My shooting pain down to my L lateral side of the ankle is pretty much gone. Patient Reported Progress Improving PT-OP-F Manual Assessment Start: 06/24/21 12:42 Freq: Status: Active Protocol: Document 06/24/21 13:55 HH (Rec: 06/24/21 14:21 [email or web address]) Manual Assessments Soft Tissue Assessment Soft Tissue Mobility Assessment significant hypertonicity at L SIJ region, gluteal muscle group and gluteal medius PT-OP-G Mobility & Gait Start: 06/24/21 12:42 Freq: Status: Active Protocol: Document 06/24/21 13:55 HH (Rec: 06/24/21 14:21 [email or web address]) OP Gait Assessment Gait Deviations General Gait Pattern Antalgic,Decreased Stride Length,Decreased Feet Clearance Factors Limiting Gait Function Factors Limiting Gait Function Decreased Activity Tolerance, Decreased Strength,Limited Range of Motion,Pain,Poor Balance Comments Gait Comments pt is wobbly with her gait. She often loses balance during stance phase of LLE. She primarily WB via RLE d/t pain on LLE PT-OP-H Neuro Start: 06/24/21 12:42 Freq: Status: Active Protocol: Document 06/24/21 13:55 HH (Rec: 06/24/21 14:21 [email or web address]) Sensation Evaluation Gross Sensation Gross Sensation Left LE Impaired Sensation Description Numbness Dermatome Impairments L5 Comments Summary Comments decreased sensation to touch lateral thigh, medial chavira and lateral chavira and dorsal aspect of big toe and 2nd toe. Deep Tendon Reflex & Clonus Assessment Deep Tendon Reflex Bilateral Achilles Deep Tendon Reflex 2+ Normal Bilateral Patellar Deep Tendon Reflex 2+ Normal PT-OP-J Posture/Palpation/Skin Start: 06/24/21 12:42 Freq: Status: Active Protocol: Document 06/24/21 13:55 HH (Rec: 06/24/21 14:21 [email or web address]) Posture Evaluation Position Standing Evaluation View Anterior Weight Distribution Weight Shifted Right PT-OP-K Range of Motion Start: 06/24/21 12:42 Freq: Status: Active Protocol: Document 06/24/21 13:55 HH (Rec: 06/24/21 14:21 [email or web address]) Hip Goniometric Range of Motion Hip Right Active Hip ROM WFL Yes Straight Leg Raise 90 Left Active Hip ROM WFL No Testing Position Supine Straight Leg Raise 72 Comments radiating pain to L buttock and posterior thigh PT-OP-L Special Tests Start: 06/24/21 12:42 Freq: Status: Active Protocol: Document 06/24/21 13:55 HH (Rec: 06/24/21 14:21 [email or web address]) Special Tests Lumbar Spine Special Tests Straight Leg Raise Test Results +VE L Comments ASLR up to 70 with buttock pain Slump Test Results +VE L Comments pain at buttock and posterior thigh PT-OP-M Strength Start: 06/24/21 12:42 Freq: Status: Active Protocol: Document 06/24/21 13:55 HH (Rec: 06/24/21 14:21 [email or web address]) Hip Strength Hip Manual Muscle Testing Right Flexion (L2) 4+ Good+ Extension (S1) 4+ Good+ Abduction 4+ Good+ Adduction 4+ Good+ Left Flexion (L2) 4- Good- Extension (S1) 3+ Fair+ Abduction 3+ Fair+ Adduction 4- Good- Knee Strength Knee Manual Muscle Testing Right Flexion (S2) 4+ Good+ Extension (L3) 4+ Good+ Left Flexion (S2) 4+ Good+ Extension (L3) 4+ Good+ Ankle/Foot Strength Ankle and Foot Manual Muscle Testing Right Dorsiflexion (L4) 5 Normal Plantarflexion (S1) 5 Normal Inversion 5 Normal Eversion (S1) 5 Normal Left Dorsiflexion (L4) 4 Good Plantarflexion (S1) 4+ Good+ Inversion 5 Normal Eversion (S1) 5 Normal Toe Strength Toe Manual Muscle Testing Right Great Toe Flexion 5 Normal Left Great Toe Flexion 3+ Fair+ PT-OP-Q Treatments Start: 06/24/21 12:42 Freq: Status: Active Protocol: Document 07/27/21 13:49 (Rec: 07/27/21 14:29 [id number]) Cardio Equipment Elliptical Duration (Minutes) 5 Resistance 3 Other quad soreness noted. Therapeutic Exercises Supine Exercises sciatic nerve glide Supine Exercise Name with DF and inv, sural nerve biased Side bilateral Reps/Minutes 10 x2 Sidelying Exercises SL hip abd Side bilateral Reps/Minutes 10 x2 Sitting Exercises LAQ Equipment Used 5lbs ankle weight. Reps/Minutes 10 x2, 3 sec hold Comments cues on quad activation. Standing Exercises crab walk Side bilateral Equipment Used red band on knees. Reps/Minutes 20ft x 4 Therapeutic Activity Therapeutic Activity step up Reps/Minutes 10 x2 Comments 6 step Manual Therapy Treatment Joint Mobilizations B hip Joint traction Direction bilateral Grade III Body Position Supine PT-OP-T Assessment and Plan Start: 06/24/21 12:42 Freq: Status: Active Protocol: Document 07/27/21 13:49 (Rec: 07/27/21 14:29 [id number]) Physical Therapy Assessment Goals activity tolerance Impairment pt is unable to tolerate any walking and staning activities Short Term Goal (STG) 07/24 goal met pt has been going to pool fitness class and gym3 times a week. pt will show improved LLE strength and stability to normalize her gait with symmetrical stance phase bilaterally STG Duration 5 weeks Web Application Dev Specialist Goal (LTG) pt will show improved LLE strength and stability to be able to walk 3 miles x4 times a week with her dog. LTG Duration 10 weeks neural tension test Impairment significant radiating pain on LLE with ASLR and slump test Short Term Goal (STG) pt will have pain no more than 2 during ASLR and slump test to show reduce neural tension STG Duration 5 weeks Longterm Goal (LTG) 07/24 goal met pt does not have radiating symptoms during ASLR and slump test to show reduce neural tension LTG Duration 10 weeks Owestry Impairment pt scores 44 on Owestry Short Term Goal (STG) pt will score < 35 on Owestry to show improvements in mobility and strength STG Duration 5 weeks Longterm Goal (LTG) 07/24 goal met pt scores 14 today. pt will score < 25 on Owestry to show improvements in mobility and strength LTG Duration 10 weeks Assessment Summary Assessment Pt reports she is not taking any gabapentin now and shows increased activity tolerance. Added banded squat, step up today and she did report slight fatigue after. Physical Therapy Plan Frequency and Duration Frequency of Treatment 2x/Week Duration of Treatment 10 weeks Plan of Care Start Date 06/24/21 Plan of Care End Date 09/07/21 Therapeutic Interventions Therapeutic Interventions Aquatic Therapy,Balance Training,Gait Training,Home Exercise Program,Joint Mobilizations,Manual Therapy, Neuromuscular Re-education, Patient/Caregiver Education, Self-Care/Home Management,Soft Tissue Mobilization,Taping, Therapeutic Activities, Therapeutic Exercises Modalities Cold Pack/Ice Massage,Electric Stimulation,Hot Packs, Infrared Therapy,Traction- Mechanical,Ultrasound Next Visit Focus/Plan Next Note Type Progress Note Next Visit Plan review eversion exercise. Print out 4-way ankle strengthening if approproate. LLE traction STM on glute, TFL nerve lien gilbert, figure 4
--- NOTE | 2021-07-29 14:40 | PT.OTN ---
Current Diagnoses Spinal stenosis, lumbar region without neurogenic claudication (07/29/21) Physical Therapy Treatment Note PT-OP-A Visit Information Start: 06/24/21 12:42 Freq: Status: Active Protocol: Document 07/29/21 13:48 HH (Rec: 07/29/21 14:40 HH [id number]) Out-Patient Physical Therapy Visit Information Visit Information Visit Type Treatment Note Visit Note Pt will have f/u with surgeon again on 08/11/21 pt is not taking gabapentin. Visit Start Time 13:48 Visit Stop Time 14:30 Total Visit Minutes 42 Visit Number 10/18 Number of ELECTRICAL DESIGNER DRAFTER Visits 0 PT-OP-B Current Condition Start: 06/24/21 12:42 Freq: Status: Active Protocol: Document 06/24/21 11:15 HH (Rec: 06/24/21 12:56 HH [email or web address]) Current Condition History of Current Condition Onset Date 05/01/21 Current Complaints Sacral fx, Chronic LBP, radiating pain to L LE, difficulty in walking History of Current Condition Li is a 71yo female here s/p 8 weeks L5-S1 fusion for her R leg pain by surgeon Dr. Serna from [place] at [place]. Pt was recovering well for the first 3 days but woke up with severe pain. She went to ER and was dx with sacral fx. Pt has been experiencing severe pain to her L buttock and leg since then with difficulty with any WB activities. She is currently approx 10 Gabapentin and 3 tylenol a day for pain control. She states she has been getting better and able to start walking again recently. She noticed she has new onset of numbness to L lateral thigh and calf since surgery. She currently has to bear weight mostly on RLE to walk to reduce pain. Prior to surgery, pt was very active and walked 3-5 miles a day with her dog and participated 3-4 times aquatic aerobics at the [facility]. Prior Treatments and Tests pt had a f/u with surgeon last week and she stated MD told her that her sacrum is healing properly. No precautions noted. ACDF C3-C7 with good recovery. Future Testing and Treatments Planned pt stated her surgeon might recommend surgical clean up if her symptoms will not improve. Treatment Goals Patient/Caregiver Goals 1. to be able to return daily walking up to 3-5 miles indepenently 2. to be able to complete house chores again 3. participate aquatic aerobic class 3-4 times a week Prior Functional Status Baseline Function- ADL's Independent Baseline Function- Mobility Independent Baseline Function- Other IND for all car pincher Current Functional Impairments (Reported) Functional Limitations- ADL's pt has to hire a powerhouse laborer once a week to assist pt for laundry, vacumming, sweeping the floor. PT-OP-C Subjective Start: 06/24/21 12:42 Freq: Status: Active Protocol: Document 07/29/21 13:48 HH (Rec: 07/29/21 14:40 HH [id number]) OP-PT Subjective Patient Comments Patient Comments Im doing pretty good. Im still not taking gabapentin. Im doing 5k steps Patient Reported Progress Improving PT-OP-F Manual Assessment Start: 06/24/21 12:42 Freq: Status: Active Protocol: Document 06/24/21 13:55 HH (Rec: 06/24/21 14:21 HH [email or web address]) Manual Assessments Soft Tissue Assessment Soft Tissue Mobility Assessment significant hypertonicity at L SIJ region, gluteal muscle group and gluteal medius PT-OP-G Mobility & Gait Start: 06/24/21 12:42 Freq: Status: Active Protocol: Document 06/24/21 13:55 HH (Rec: 06/24/21 14:21 HH [email or web address]) OP Gait Assessment Gait Deviations General Gait Pattern Antalgic,Decreased Stride Length,Decreased Feet Clearance Factors Limiting Gait Function Factors Limiting Gait Function Decreased Activity Tolerance, Decreased Strength,Limited Range of Motion,Pain,Poor Balance Comments Gait Comments pt is wobbly with her gait. She often loses balance during stance phase of LLE. She primarily WB via RLE d/t pain on LLE PT-OP-H Neuro Start: 06/24/21 12:42 Freq: Status: Active Protocol: Document 06/24/21 13:55 HH (Rec: 06/24/21 14:21 HH [email or web address]) Sensation Evaluation Gross Sensation Gross Sensation Left LE Impaired Sensation Description Numbness Dermatome Impairments L5 Comments Summary Comments decreased sensation to touch lateral thigh, medial chavira and lateral chavira and dorsal aspect of big toe and 2nd toe. Deep Tendon Reflex & Clonus Assessment Deep Tendon Reflex Bilateral Achilles Deep Tendon Reflex 2+ Normal Bilateral Patellar Deep Tendon Reflex 2+ Normal PT-OP-J Posture/Palpation/Skin Start: 06/24/21 12:42 Freq: Status: Active Protocol: Document 06/24/21 13:55 HH (Rec: 06/24/21 14:21 [email or web address]) Posture Evaluation Position Standing Evaluation View Anterior Weight Distribution Weight Shifted Right PT-OP-K Range of Motion Start: 06/24/21 12:42 Freq: Status: Active Protocol: Document 06/24/21 13:55 HH (Rec: 06/24/21 14:21 [email or web address]) Hip Goniometric Range of Motion Hip Right Active Hip ROM WFL Yes Straight Leg Raise 90 Left Active Hip ROM WFL No Testing Position Supine Straight Leg Raise 72 Comments radiating pain to L buttock and posterior thigh PT-OP-L Special Tests Start: 06/24/21 12:42 Freq: Status: Active Protocol: Document 06/24/21 13:55 HH (Rec: 06/24/21 14:21 [email or web address]) Special Tests Lumbar Spine Special Tests Straight Leg Raise Test Results +VE L Comments ASLR up to 70 with buttock pain Slump Test Results +VE L Comments pain at buttock and posterior thigh PT-OP-M Strength Start: 06/24/21 12:42 Freq: Status: Active Protocol: Document 06/24/21 13:55 HH (Rec: 06/24/21 14:21 [email or web address]) Hip Strength Hip Manual Muscle Testing Right Flexion (L2) 4+ Good+ Extension (S1) 4+ Good+ Abduction 4+ Good+ Adduction 4+ Good+ Left Flexion (L2) 4- Good- Extension (S1) 3+ Fair+ Abduction 3+ Fair+ Adduction 4- Good- Knee Strength Knee Manual Muscle Testing Right Flexion (S2) 4+ Good+ Extension (L3) 4+ Good+ Left Flexion (S2) 4+ Good+ Extension (L3) 4+ Good+ Ankle/Foot Strength Ankle and Foot Manual Muscle Testing Right Dorsiflexion (L4) 5 Normal Plantarflexion (S1) 5 Normal Inversion 5 Normal Eversion (S1) 5 Normal Left Dorsiflexion (L4) 4 Good Plantarflexion (S1) 4+ Good+ Inversion 5 Normal Eversion (S1) 5 Normal Toe Strength Toe Manual Muscle Testing Right Great Toe Flexion 5 Normal Left Great Toe Flexion 3+ Fair+ PT-OP-Q Treatments Start: 06/24/21 12:42 Freq: Status: Active Protocol: Document 07/29/21 13:48 (Rec: 07/29/21 14:40 [id number]) Cardio Equipment Elliptical Duration (Minutes) 5 Resistance 3 Other less SOB noted. Gym Equipment Shuttle Recovery SL squat Resistance 37#, #50 Shuttle Recovery Platform Stable Reps/Time 10 x5, R stronger than L, L foot pronation noted. Shuttle Balance red Reps/Duration 5 mins Comments pt shows delayed protective balance strategy. Therapeutic Exercises Sidelying Exercises SL hip abd Side bilateral Reps/Minutes 10 x2 Sitting Exercises LAQ Equipment Used 5lbs ankle weight. Reps/Minutes 10 x2, 3 sec hold Comments cues on quad activation. Standing Exercises squat Side bilateral Equipment Used red band. crab walk Side bilateral Equipment Used red band on knees. Reps/Minutes 20ft x 4 Therapeutic Activity Therapeutic Activity step up Reps/Minutes 10 x3 Comments 6 step Manual Therapy Treatment Joint Mobilizations B hip Joint traction Direction bilateral Grade III Body Position Supine PT-OP-T Assessment and Plan Start: 06/24/21 12:42 Freq: Status: Active Protocol: Document 07/29/21 13:48 (Rec: 07/29/21 14:40 [id number]) Physical Therapy Assessment Goals activity tolerance Impairment pt is unable to tolerate any walking and staning activities Short Term Goal (STG) 07/24 goal met pt has been going to pool fitness class and gym3 times a week. pt will show improved LLE strength and stability to normalize her gait with symmetrical stance phase bilaterally STG Duration 5 weeks Detention Goal (LTG) pt will show improved LLE strength and stability to be able to walk 3 miles x4 times a week with her dog. LTG Duration 10 weeks neural tension test Impairment significant radiating pain on LLE with ASLR and slump test Short Term Goal (STG) pt will have pain no more than 2 during ASLR and slump test to show reduce neural tension STG Duration 5 weeks Detention Goal (LTG) 07/24 goal met pt does not have radiating symptoms during ASLR and slump test to show reduce neural tension LTG Duration 10 weeks Owestry Impairment pt scores 44 on Owestry Short Term Goal (STG) pt will score < 35 on Owestry to show improvements in mobility and strength STG Duration 5 weeks Detention Goal (LTG) 07/24 goal met pt scores 14 today. pt will score < 25 on Owestry to show improvements in mobility and strength LTG Duration 10 weeks Assessment Summary Assessment pt is doing well but she still has uneven steps occasionally . Her ankle ROM/ strength = WFL but her righting balance is somewhat delayed. Will add more balance activites into POC Physical Therapy Plan Frequency and Duration Frequency of Treatment 2x/Week Duration of Treatment 10 weeks Plan of Care Start Date 06/24/21 Plan of Care End Date 09/07/21 Therapeutic Interventions Therapeutic Interventions Aquatic Therapy,Balance Training,Gait Training,Home Exercise Program,Joint Mobilizations,Manual Therapy, Neuromuscular Re-education, Patient/Caregiver Education, Self-Care/Home Management,Soft Tissue Mobilization,Taping, Therapeutic Activities, Therapeutic Exercises Modalities Cold Pack/Ice Massage,Electric Stimulation,Hot Packs, Infrared Therapy,Traction- Mechanical,Ultrasound Next Visit Focus/Plan Next Note Type Progress Note Next Visit Plan review eversion exercise. Print out 4-way ankle strengthening if approproate. LLE traction STM on glute, TFL nerve lien gilbert, figure 4
--- NOTE | 2021-08-05 10:34 | PT.OTN ---
Current Diagnoses Spinal stenosis, lumbar region without neurogenic claudication (08/05/21) Physical Therapy Treatment Note PT-OP-A Visit Information Start: 06/24/21 12:42 Freq: Status: Active Protocol: Document 08/05/21 09:46 HH (Rec: 08/05/21 10:34 HH [id number]) Out-Patient Physical Therapy Visit Information Visit Information Visit Type Treatment Note Visit Note Pt will have f/u with surgeon again on 08/11/21 pt is not taking gabapentin. Visit Start Time 09:46 Visit Stop Time 10:30 Total Visit Minutes 44 Visit Number Number of FOLDER GLUER OPERATOR Visits 0 PT-OP-B Current Condition Start: 06/24/21 12:42 Freq: Status: Active Protocol: Document 06/24/21 11:15 HH (Rec: 06/24/21 12:56 HH [email or web address]) Current Condition History of Current Condition Onset Date 05/01/21 Current Complaints Sacral fx, Chronic LBP, radiating pain to L LE, difficulty in walking History of Current Condition Li is a 71yo female here s/p 8 weeks L5-S1 fusion for her R leg pain by surgeon Dr. Serna from [place] at [place]. Pt was recovering well for the first 3 days but woke up with severe pain. She went to ER and was dx with sacral fx. Pt has been experiencing severe pain to her L buttock and leg since then with difficulty with any WB activities. She is currently approx 10 Gabapentin and 3 tylenol a day for pain control. She states she has been getting better and able to start walking again recently. She noticed she has new onset of numbness to L lateral thigh and calf since surgery. She currently has to bear weight mostly on RLE to walk to reduce pain. Prior to surgery, pt was very active and walked 3-5 miles a day with her dog and participated 3-4 times aquatic aerobics at the [employer] [place]. Prior Treatments and Tests pt had a f/u with surgeon last week and she stated MD told her that her sacrum is healing properly. No precautions noted. ACDF C3-C7 with good recovery. Future Testing and Treatments Planned pt stated her surgeon might recommend surgical clean up if her symptoms will not improve. Treatment Goals Patient/Caregiver Goals 1. to be able to return daily walking up to 3-5 miles indepenently 2. to be able to complete house chores again 3. participate aquatic aerobic class 3-4 times a week Prior Functional Status Baseline Function- ADL's Independent Baseline Function- Mobility Independent Baseline Function- Other IND for all testing and regulating technician Current Functional Impairments (Reported) Functional Limitations- ADL's pt has to hire a laborer cook house once a week to assist pt for laundry, vacumming, sweeping the floor. PT-OP-C Subjective Start: 06/24/21 12:42 Freq: Status: Active Protocol: Document 08/05/21 09:46 HH (Rec: 08/05/21 10:34 HH [id number]) OP-PT Subjective Patient Comments Patient Comments I think im reaching plateau in terms of rehab. I only still have numbness at the bottom of R foot. It does affect my balance. My L ankle is fine now. Patient Reported Progress Improving PT-OP-F Manual Assessment Start: 06/24/21 12:42 Freq: Status: Active Protocol: Document 06/24/21 13:55 HH (Rec: 06/24/21 14:21 [email or web address]) Manual Assessments Soft Tissue Assessment Soft Tissue Mobility Assessment significant hypertonicity at L SIJ region, gluteal muscle group and gluteal medius PT-OP-G Mobility & Gait Start: 06/24/21 12:42 Freq: Status: Active Protocol: Document 06/24/21 13:55 HH (Rec: 06/24/21 14:21 HH [email or web address]) OP Gait Assessment Gait Deviations General Gait Pattern Antalgic,Decreased Stride Length,Decreased Feet Clearance Factors Limiting Gait Function Factors Limiting Gait Function Decreased Activity Tolerance, Decreased Strength,Limited Range of Motion,Pain,Poor Balance Comments Gait Comments pt is wobbly with her gait. She often loses balance during stance phase of LLE. She primarily WB via RLE d/t pain on LLE PT-OP-H Neuro Start: 06/24/21 12:42 Freq: Status: Active Protocol: Document 06/24/21 13:55 HH (Rec: 06/24/21 14:21 HH [email or web address]) Sensation Evaluation Gross Sensation Gross Sensation Left LE Impaired Sensation Description Numbness Dermatome Impairments L5 Comments Summary Comments decreased sensation to touch lateral thigh, medial chavira and lateral chavira and dorsal aspect of big toe and 2nd toe. Deep Tendon Reflex & Clonus Assessment Deep Tendon Reflex Bilateral Achilles Deep Tendon Reflex 2+ Normal Bilateral Patellar Deep Tendon Reflex 2+ Normal PT-OP-J Posture/Palpation/Skin Start: 06/24/21 12:42 Freq: Status: Active Protocol: Document 06/24/21 13:55 (Rec: 06/24/21 14:21 [email or web address]) Posture Evaluation Position Standing Evaluation View Anterior Weight Distribution Weight Shifted Right PT-OP-K Range of Motion Start: 06/24/21 12:42 Freq: Status: Active Protocol: Document 06/24/21 13:55 HH (Rec: 06/24/21 14:21 [email or web address]) Hip Goniometric Range of Motion Hip Right Active Hip ROM WFL Yes Straight Leg Raise 90 Left Active Hip ROM WFL No Testing Position Supine Straight Leg Raise 72 Comments radiating pain to L buttock and posterior thigh PT-OP-L Special Tests Start: 06/24/21 12:42 Freq: Status: Active Protocol: Document 06/24/21 13:55 (Rec: 06/24/21 14:21 [email or web address]) Special Tests Lumbar Spine Special Tests Straight Leg Raise Test Results +VE L Comments ASLR up to 70 with buttock pain Slump Test Results +VE L Comments pain at buttock and posterior thigh PT-OP-M Strength Start: 06/24/21 12:42 Freq: Status: Active Protocol: Document 06/24/21 13:55 HH (Rec: 06/24/21 14:21 [email or web address]) Hip Strength Hip Manual Muscle Testing Right Flexion (L2) 4+ Good+ Extension (S1) 4+ Good+ Abduction 4+ Good+ Adduction 4+ Good+ Left Flexion (L2) 4- Good- Extension (S1) 3+ Fair+ Abduction 3+ Fair+ Adduction 4- Good- Knee Strength Knee Manual Muscle Testing Right Flexion (S2) 4+ Good+ Extension (L3) 4+ Good+ Left Flexion (S2) 4+ Good+ Extension (L3) 4+ Good+ Ankle/Foot Strength Ankle and Foot Manual Muscle Testing Right Dorsiflexion (L4) 5 Normal Plantarflexion (S1) 5 Normal Inversion 5 Normal Eversion (S1) 5 Normal Left Dorsiflexion (L4) 4 Good Plantarflexion (S1) 4+ Good+ Inversion 5 Normal Eversion (S1) 5 Normal Toe Strength Toe Manual Muscle Testing Right Great Toe Flexion 5 Normal Left Great Toe Flexion 3+ Fair+ PT-OP-Q Treatments Start: 06/24/21 12:42 Freq: Status: Active Protocol: Document 08/05/21 09:46 (Rec: 08/05/21 10:34 [id number]) Gym Equipment Shuttle Recovery SL squat Resistance #50 Shuttle Recovery Platform Stable Reps/Time 15 x2, R stronger than L, L foot pronation noted. Shuttle Balance red Reps/Duration 10 mins Comments improved protective right reaction today. Able to hold > 20-30 s without UE support. EC after but unsuccessful Therapeutic Exercises Standing Exercises squat Side bilateral Equipment Used red band. crab walk Side bilateral Equipment Used red band on knees. Reps/Minutes 20ft x 4 Therapeutic Activity Therapeutic Activity hip hinge Reps/Minutes 10 x2 Comments cues with less knee flexion Manual Therapy Treatment Joint Mobilizations B hip Joint traction Direction bilateral Grade III Body Position Supine Neuro Re-Education Treatment Balance Activities weight shift Comments for HEP sagittal plane blue foam Details weight shift then EC Surface blue foam Reps/Duration 8 Comments weight shift first with EO then with EC PT-OP-T Assessment and Plan Start: 06/24/21 12:42 Freq: Status: Active Protocol: Document 08/05/21 09:46 (Rec: 08/05/21 10:34 [id number]) Physical Therapy Assessment Goals activity tolerance Impairment pt is unable to tolerate any walking and staning activities Short Term Goal (STG) 07/24 goal met pt has been going to pool fitness class and gym3 times a week. pt will show improved LLE strength and stability to normalize her gait with symmetrical stance phase bilaterally STG Duration 5 weeks Snf Goal (LTG) pt will show improved LLE strength and stability to be able to walk 3 miles x4 times a week with her dog. LTG Duration 10 weeks neural tension test Impairment significant radiating pain on LLE with ASLR and slump test Short Term Goal (STG) pt will have pain no more than 2 during ASLR and slump test to show reduce neural tension STG Duration 5 weeks Patent Paralegal Goal (LTG) 07/24 goal met pt does not have radiating symptoms during ASLR and slump test to show reduce neural tension LTG Duration 10 weeks Owestry Impairment pt scores 44 on Owestry Short Term Goal (STG) pt will score < 35 on Owestry to show improvements in mobility and strength STG Duration 5 weeks Snf Goal (LTG) 07/24 goal met pt scores 14 today. pt will score < 25 on Owestry to show improvements in mobility and strength LTG Duration 10 weeks Assessment Summary Assessment pt thinks she is at plateau at this point because of her balance and overall tolerance for WB activities. This session focused on ankle strategy and she did better than last time. Will continue POC Physical Therapy Plan Frequency and Duration Frequency of Treatment 2x/Week Duration of Treatment 10 weeks Plan of Care Start Date 06/24/21 Plan of Care End Date 09/07/21 Therapeutic Interventions Therapeutic Interventions Aquatic Therapy,Balance Training,Gait Training,Home Exercise Program,Joint Mobilizations,Manual Therapy, Neuromuscular Re-education, Patient/Caregiver Education, Self-Care/Home Management,Soft Tissue Mobilization,Taping, Therapeutic Activities, Therapeutic Exercises Modalities Cold Pack/Ice Massage,Electric Stimulation,Hot Packs, Infrared Therapy,Traction- Mechanical,Ultrasound Next Visit Focus/Plan Next Note Type Progress Note Next Visit Plan review eversion exercise. Print out 4-way ankle strengthening if approproate. LLE traction STM on glute, TFL nerve lien gilbert, figure 4
--- NOTE | 2021-08-12 14:32 | PT.OTN ---
Current Diagnoses Spinal stenosis, lumbar region without neurogenic claudication (08/12/21) Physical Therapy Treatment Note PT-OP-A Visit Information Start: 06/24/21 12:42 Freq: Status: Active Protocol: Document 08/12/21 13:45 HH (Rec: 08/12/21 14:32 HH [id number]) Out-Patient Physical Therapy Visit Information Visit Information Visit Type Treatment Note Visit Note Pt had a f/u with surgeon yesterday and he is pleased with her progress. Stated her pain in her R foot is mostly d /t nerve pain. Visit Start Time 13:46 Visit Stop Time 14:30 Total Visit Minutes 44 Visit Number Number of ENGINEERING PROFESSOR Visits 0 PT-OP-B Current Condition Start: 06/24/21 12:42 Freq: Status: Active Protocol: Document 06/24/21 11:15 HH (Rec: 06/24/21 12:56 HH [email or web address]) Current Condition History of Current Condition Onset Date 05/01/21 Current Complaints Sacral fx, Chronic LBP, radiating pain to L LE, difficulty in walking History of Current Condition Li is a 71yo female here s/p 8 weeks L5-S1 fusion for her R leg pain by surgeon Dr. Serna from [place] [facility] [place]. Pt was recovering well for the first 3 days but woke up with severe pain. She went to ER and was dx with sacral fx. Pt has been experiencing severe pain to her L buttock and leg since then with difficulty with any WB activities. She is currently approx 10 Gabapentin and 3 tylenol a day for pain control. She states she has been getting better and able to start walking again recently. She noticed she has new onset of numbness to L lateral thigh and calf since surgery. She currently has to bear weight mostly on RLE to walk to reduce pain. Prior to surgery, pt was very active and walked 3-5 miles a day with her dog and participated 3-4 times aquatic aerobics at the [employer]. Prior Treatments and Tests pt had a f/u with surgeon last week and she stated MD told her that her sacrum is healing properly. No precautions noted. ACDF C3-C7 with good recovery. Future Testing and Treatments Planned pt stated her surgeon might recommend surgical clean up if her symptoms will not improve. Treatment Goals Patient/Caregiver Goals 1. to be able to return daily walking up to 3-5 miles indepenently 2. to be able to complete house chores again 3. 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 PT-OP-C Subjective Start: 06/24/21 12:42 Freq: Status: Active Protocol: Document 08/12/21 13:45 HH (Rec: 08/12/21 14:32 [id number]) OP-PT Subjective Patient Comments Patient Comments Im doing pretty well at this point. Edwige been walking every morning. Patient Reported Progress Improving PT-OP-F Manual Assessment Start: 06/24/21 12:42 Freq: Status: Active Protocol: Document 06/24/21 13:55 HH (Rec: 06/24/21 14:21 [email or web address]) Manual Assessments Soft Tissue Assessment Soft Tissue Mobility Assessment significant hypertonicity at L SIJ region, gluteal muscle group and gluteal medius PT-OP-G Mobility & Gait Start: 06/24/21 12:42 Freq: Status: Active Protocol: Document 06/24/21 13:55 HH (Rec: 06/24/21 14:21 [email or web address]) OP Gait Assessment Gait Deviations General Gait Pattern Antalgic,Decreased Stride Length,Decreased Feet Clearance Factors Limiting Gait Function Factors Limiting Gait Function Decreased Activity Tolerance, Decreased Strength,Limited Range of Motion,Pain,Poor Balance Comments Gait Comments pt is wobbly with her gait. She often loses balance during stance phase of LLE. She primarily WB via RLE d/t pain on LLE PT-OP-H Neuro Start: 06/24/21 12:42 Freq: Status: Active Protocol: Document 06/24/21 13:55 HH (Rec: 06/24/21 14:21 [email or web address]) Sensation Evaluation Gross Sensation Gross Sensation Left LE Impaired Sensation Description Numbness Dermatome Impairments L5 Comments Summary Comments decreased sensation to touch lateral thigh, medial chavira and lateral chavira and dorsal aspect of big toe and 2nd toe. Deep Tendon Reflex & Clonus Assessment Deep Tendon Reflex Bilateral Achilles Deep Tendon Reflex 2+ Normal Bilateral Patellar Deep Tendon Reflex 2+ Normal PT-OP-J Posture/Palpation/Skin Start: 06/24/21 12:42 Freq: Status: Active Protocol: Document 06/24/21 13:55 HH (Rec: 06/24/21 14:21 [email or web address]) Posture Evaluation Position Standing Evaluation View Anterior Weight Distribution Weight Shifted Right PT-OP-K Range of Motion Start: 06/24/21 12:42 Freq: Status: Active Protocol: Document 06/24/21 13:55 HH (Rec: 06/24/21 14:21 HH [email or web address]) Hip Goniometric Range of Motion Hip Right Active Hip ROM WFL Yes Straight Leg Raise 90 Left Active Hip ROM WFL No Testing Position Supine Straight Leg Raise 72 Comments radiating pain to L buttock and posterior thigh PT-OP-L Special Tests Start: 06/24/21 12:42 Freq: Status: Active Protocol: Document 06/24/21 13:55 HH (Rec: 06/24/21 14:21 [email or web address]) Special Tests Lumbar Spine Special Tests Straight Leg Raise Test Results +VE L Comments ASLR up to 70 with buttock pain Slump Test Results +VE L Comments pain at buttock and posterior thigh PT-OP-M Strength Start: 06/24/21 12:42 Freq: Status: Active Protocol: Document 06/24/21 13:55 HH (Rec: 06/24/21 14:21 [email or web address]) Hip Strength Hip Manual Muscle Testing Right Flexion (L2) 4+ Good+ Extension (S1) 4+ Good+ Abduction 4+ Good+ Adduction 4+ Good+ Left Flexion (L2) 4- Good- Extension (S1) 3+ Fair+ Abduction 3+ Fair+ Adduction 4- Good- Knee Strength Knee Manual Muscle Testing Right Flexion (S2) 4+ Good+ Extension (L3) 4+ Good+ Left Flexion (S2) 4+ Good+ Extension (L3) 4+ Good+ Ankle/Foot Strength Ankle and Foot Manual Muscle Testing Right Dorsiflexion (L4) 5 Normal Plantarflexion (S1) 5 Normal Inversion 5 Normal Eversion (S1) 5 Normal Left Dorsiflexion (L4) 4 Good Plantarflexion (S1) 4+ Good+ Inversion 5 Normal Eversion (S1) 5 Normal Toe Strength Toe Manual Muscle Testing Right Great Toe Flexion 5 Normal Left Great Toe Flexion 3+ Fair+ PT-OP-Q Treatments Start: 06/24/21 12:42 Freq: Status: Active Protocol: Document 08/12/21 13:45 (Rec: 08/12/21 14:32 [id number]) Cardio Equipment Elliptical Duration (Minutes) 6 Resistance 3 Other min SOB noted. Gym Equipment Shuttle Recovery SL squat Resistance #50 Shuttle Recovery Platform Stable Reps/Time 15 x3, reports similar strength Shuttle Balance red Reps/Duration 10 mins Comments improved protective right reaction today. Able to hold > 20-30 s without UE support. perturbation provided. Therapeutic Exercises Standing Exercises crab walk Side bilateral Equipment Used red band on knees. Reps/Minutes 20ft x 4 Neuro Re-Education Treatment Balance Activities hurdles Surface ground level Comments step to pattern first 4 rounds then step over pattern 4 rounds. blue foam Details weight shift then EC Surface blue foam Reps/Duration 8 Comments weight shift first with EO then with EC, with perturbations. PT-OP-T Assessment and Plan Start: 06/24/21 12:42 Freq: Status: Active Protocol: Document 08/12/21 13:45 (Rec: 08/12/21 14:32 [id number]) Physical Therapy Assessment Goals activity tolerance Impairment pt is unable to tolerate any walking and staning activities Short Term Goal (STG) 07/24 goal met pt has been going to pool fitness class and gym3 times a week. pt will show improved LLE strength and stability to normalize her gait with symmetrical stance phase bilaterally STG Duration 5 weeks Prison Goal (LTG) pt will show improved LLE strength and stability to be able to walk 3 miles x4 times a week with her dog. LTG Duration 10 weeks neural tension test Impairment significant radiating pain on LLE with ASLR and slump test Short Term Goal (STG) pt will have pain no more than 2 during ASLR and slump test to show reduce neural tension STG Duration 5 weeks Early Childhood Teacher Goal (LTG) 07/24 goal met pt does not have radiating symptoms during ASLR and slump test to show reduce neural tension LTG Duration 10 weeks Owestry Impairment pt scores 44 on Owestry Short Term Goal (STG) pt will score < 35 on Owestry to show improvements in mobility and strength STG Duration 5 weeks Prison Goal (LTG) 07/24 goal met pt scores 14 today. pt will score < 25 on Owestry to show improvements in mobility and strength LTG Duration 10 weeks Assessment Summary Assessment pt overall shows good progress with improved activity tolerance and LE strnegth. THis session focused on right reaction primarily and she did get better with repetitions. expect pt to be DC at the end of this month. Physical Therapy Plan Frequency and Duration Frequency of Treatment 2x/Week Duration of Treatment 10 weeks Plan of Care Start Date 06/24/21 Plan of Care End Date 09/07/21 Therapeutic Interventions Therapeutic Interventions Aquatic Therapy,Balance Training,Gait Training,Home Exercise Program,Joint Mobilizations,Manual Therapy, Neuromuscular Re-education, Patient/Caregiver Education, Self-Care/Home Management,Soft Tissue Mobilization,Taping, Therapeutic Activities, Therapeutic Exercises Modalities Cold Pack/Ice Massage,Electric Stimulation,Hot Packs, Infrared Therapy,Traction- Mechanical,Ultrasound Next Visit Focus/Plan Next Note Type Progress Note Next Visit Plan review eversion exercise. Print out 4-way ankle strengthening if approproate. LLE traction STM on glute, TFL nerve lien gilbert, figure 4
--- NOTE | 2021-08-18 14:58 | PT.OTN ---
Current Diagnoses Spinal stenosis, lumbar region without neurogenic claudication (08/18/21) Physical Therapy Treatment Note PT-OP-A Visit Information Start: 06/24/21 12:42 Freq: Status: Active Protocol: Document 08/18/21 13:48 HH (Rec: 08/18/21 14:58 HH [id number]) Out-Patient Physical Therapy Visit Information Visit Information Visit Type Treatment Note Visit Note Pt had a f/u with surgeon yesterday and he is pleased with her progress. Stated her pain in her R foot is mostly d /t nerve pain. Visit Start Time 13:48 Visit Stop Time 14:30 Total Visit Minutes 42 Visit Number Number of SATIN FINISHER Visits 0 PT-OP-B Current Condition Start: 06/24/21 12:42 Freq: Status: Active Protocol: Document 06/24/21 11:15 HH (Rec: 06/24/21 12:56 HH [email or web address]) Current Condition History of Current Condition Onset Date 05/01/21 Current Complaints Sacral fx, Chronic LBP, radiating pain to L LE, difficulty in walking History of Current Condition Li is a 71yo female here s/p 8 weeks L5-S1 fusion for her R leg pain by surgeon Dr. Serna from [place] at [place]. Pt was recovering well for the first 3 days but woke up with severe pain. She went to ER and was dx with sacral fx. Pt has been experiencing severe pain to her L buttock and leg since then with difficulty with any WB activities. She is currently approx 10 Gabapentin and 3 tylenol a day for pain control. She states she has been getting better and able to start walking again recently. She noticed she has new onset of numbness to L lateral thigh and calf since surgery. She currently has to bear weight mostly on RLE to walk to reduce pain. Prior to surgery, pt was very active and walked 3-5 miles a day with her dog and participated 3-4 times aquatic aerobics at the [employer]. Prior Treatments and Tests pt had a f/u with surgeon last week and she stated MD told her that her sacrum is healing properly. No precautions noted. ACDF C3-C7 with good recovery. Future Testing and Treatments Planned pt stated her surgeon might recommend surgical clean up if her symptoms will not improve. Treatment Goals Patient/Caregiver Goals 1. to be able to return daily walking up to 3-5 miles indepenently 2. to be able to complete house chores again 3. 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 PT-OP-C Subjective Start: 06/24/21 12:42 Freq: Status: Active Protocol: Document 08/18/21 13:48 HH (Rec: 08/18/21 14:58 [id number]) OP-PT Subjective Patient Comments Patient Comments IM doing pretty consistent so far. I think I will be able to graduate next week Patient Reported Progress Improving PT-OP-F Manual Assessment Start: 06/24/21 12:42 Freq: Status: Active Protocol: Document 06/24/21 13:55 HH (Rec: 06/24/21 14:21 [email or web address]) Manual Assessments Soft Tissue Assessment Soft Tissue Mobility Assessment significant hypertonicity at L SIJ region, gluteal muscle group and gluteal medius PT-OP-G Mobility & Gait Start: 06/24/21 12:42 Freq: Status: Active Protocol: Document 06/24/21 13:55 HH (Rec: 06/24/21 14:21 [email or web address]) OP Gait Assessment Gait Deviations General Gait Pattern Antalgic,Decreased Stride Length,Decreased Feet Clearance Factors Limiting Gait Function Factors Limiting Gait Function Decreased Activity Tolerance, Decreased Strength,Limited Range of Motion,Pain,Poor Balance Comments Gait Comments pt is wobbly with her gait. She often loses balance during stance phase of LLE. She primarily WB via RLE d/t pain on LLE PT-OP-H Neuro Start: 06/24/21 12:42 Freq: Status: Active Protocol: Document 06/24/21 13:55 HH (Rec: 06/24/21 14:21 [email or web address]) Sensation Evaluation Gross Sensation Gross Sensation Left LE Impaired Sensation Description Numbness Dermatome Impairments L5 Comments Summary Comments decreased sensation to touch lateral thigh, medial chavira and lateral chavira and dorsal aspect of big toe and 2nd toe. Deep Tendon Reflex & Clonus Assessment Deep Tendon Reflex Bilateral Achilles Deep Tendon Reflex 2+ Normal Bilateral Patellar Deep Tendon Reflex 2+ Normal PT-OP-J Posture/Palpation/Skin Start: 06/24/21 12:42 Freq: Status: Active Protocol: Document 06/24/21 13:55 HH (Rec: 06/24/21 14:21 [email or web address]) Posture Evaluation Position Standing Evaluation View Anterior Weight Distribution Weight Shifted Right PT-OP-K Range of Motion Start: 06/24/21 12:42 Freq: Status: Active Protocol: Document 06/24/21 13:55 HH (Rec: 06/24/21 14:21 HH [email or web address]) Hip Goniometric Range of Motion Hip Right Active Hip ROM WFL Yes Straight Leg Raise 90 Left Active Hip ROM WFL No Testing Position Supine Straight Leg Raise 72 Comments radiating pain to L buttock and posterior thigh PT-OP-L Special Tests Start: 06/24/21 12:42 Freq: Status: Active Protocol: Document 06/24/21 13:55 HH (Rec: 06/24/21 14:21 [email or web address]) Special Tests Lumbar Spine Special Tests Straight Leg Raise Test Results +VE L Comments ASLR up to 70 with buttock pain Slump Test Results +VE L Comments pain at buttock and posterior thigh PT-OP-M Strength Start: 06/24/21 12:42 Freq: Status: Active Protocol: Document 06/24/21 13:55 HH (Rec: 06/24/21 14:21 [email or web address]) Hip Strength Hip Manual Muscle Testing Right Flexion (L2) 4+ Good+ Extension (S1) 4+ Good+ Abduction 4+ Good+ Adduction 4+ Good+ Left Flexion (L2) 4- Good- Extension (S1) 3+ Fair+ Abduction 3+ Fair+ Adduction 4- Good- Knee Strength Knee Manual Muscle Testing Right Flexion (S2) 4+ Good+ Extension (L3) 4+ Good+ Left Flexion (S2) 4+ Good+ Extension (L3) 4+ Good+ Ankle/Foot Strength Ankle and Foot Manual Muscle Testing Right Dorsiflexion (L4) 5 Normal Plantarflexion (S1) 5 Normal Inversion 5 Normal Eversion (S1) 5 Normal Left Dorsiflexion (L4) 4 Good Plantarflexion (S1) 4+ Good+ Inversion 5 Normal Eversion (S1) 5 Normal Toe Strength Toe Manual Muscle Testing Right Great Toe Flexion 5 Normal Left Great Toe Flexion 3+ Fair+ PT-OP-Q Treatments Start: 06/24/21 12:42 Freq: Status: Active Protocol: Document 08/18/21 13:48 (Rec: 08/18/21 14:58 [id number]) Cardio Equipment Elliptical Duration (Minutes) 5 Resistance 3 Other min SOB noted. Gym Equipment Shuttle Balance red Reps/Duration 15 mins Comments improved protective right reaction today. Able to hold > 20-30 s without UE support. perturbation provided. staggered stance as well. Therapeutic Exercises Supine Exercises sciatic nerve glide Comments increased tension noted on R Standing Exercises toe tap Side bilateral Reps/Minutes 6 inch box Comments for HEP step up Side bilateral Reps/Minutes 6 inch box Comments for HEP crab walk Side bilateral Equipment Used red band on knees. Reps/Minutes 20ft x 4 calf raises Standing Exercise Name with toe raise Comments for HEP Gait Training Gait Activity heeltoe Level of Assistance CGA Surface ground level Distance/Duration 20 ft x8 Treatment Focus balance Comments tandem but slight LOB every 5- 10 ft. Able to correct herself Manual Therapy Treatment Joint Mobilizations B hip Joint traction Direction R Grade III Body Position Supine Neuro Re-Education Treatment Balance Activities hurdles Surface ground level Comments step to pattern first 4 rounds then step over pattern 4 rounds. blue foam Details weight shift then EC Surface blue foam Reps/Duration 8 Comments weight shift first with EO then with EC, with perturbations. PT-OP-T Assessment and Plan Start: 06/24/21 12:42 Freq: Status: Active Protocol: Document 08/18/21 13:48 (Rec: 08/18/21 14:58 [id number]) Physical Therapy Assessment Goals activity tolerance Impairment pt is unable to tolerate any walking and staning activities Short Term Goal (STG) 07/24 goal met pt has been going to pool fitness class and gym3 times a week. pt will show improved LLE strength and stability to normalize her gait with symmetrical stance phase bilaterally STG Duration 5 weeks Armature Varnisher Goal (LTG) pt will show improved LLE strength and stability to be able to walk 3 miles x4 times a week with her dog. LTG Duration 10 weeks neural tension test Impairment significant radiating pain on LLE with ASLR and slump test Short Term Goal (STG) pt will have pain no more than 2 during ASLR and slump test to show reduce neural tension STG Duration 5 weeks Armature Varnisher Goal (LTG) 9/24 goal met pt does not have radiating symptoms during ASLR and slump test to show reduce neural tension LTG Duration 10 weeks Owestry Impairment pt scores 44 on Owestry Short Term Goal (STG) pt will score < 35 on Owestry to show improvements in mobility and strength STG Duration 5 weeks Armature Varnisher Goal (LTG) 07/24 goal met pt scores 14 today. pt will score < 25 on Owestry to show improvements in mobility and strength LTG Duration 10 weeks Assessment Summary Assessment pt reports R low back tightness after long walks and standing. She did show neural tension on R side via long axis traction and sciatic nerve glide but improved after . This is possibly d/t her increase in activity which causes increased compression at lumbar spine. Gave her new set of HEP and possible DC next visit. Physical Therapy Plan Frequency and Duration Frequency of Treatment 2x/Week Duration of Treatment 10 weeks Plan of Care Start Date 06/24/21 Plan of Care End Date 09/07/21 Therapeutic Interventions Therapeutic Interventions Aquatic Therapy,Balance Training,Gait Training,Home Exercise Program,Joint Mobilizations,Manual Therapy, Neuromuscular Re-education, Patient/Caregiver Education, Self-Care/Home Management,Soft Tissue Mobilization,Taping, Therapeutic Activities, Therapeutic Exercises Modalities Cold Pack/Ice Massage,Electric Stimulation,Hot Packs, Infrared Therapy,Traction- Mechanical,Ultrasound Next Visit Focus/Plan Next Note Type Discharge Summary Next Visit Plan review eversion exercise. Print out 4-way ankle strengthening if approproate. LLE traction STM on glute, TFL nerve glide ofelia, rody 4
--- NOTE | 2021-08-25 14:31 | PT.OTN ---
Current Diagnoses Spinal stenosis, lumbar region without neurogenic claudication (08/25/21) Physical Therapy Treatment Note PT-OP-A Visit Information Start: 06/24/21 12:42 Freq: Status: Active Protocol: Document 08/25/21 13:47 HH (Rec: 08/25/21 14:31 HH [id number]) Out-Patient Physical Therapy Visit Information Visit Information Visit Type Discharge Summary Visit Start Time 13:48 Visit Stop Time 14:30 Total Visit Minutes 42 Visit Number Number of PLASTIC PRESS MOLDER Visits 0 PT-OP-B Current Condition Start: 06/24/21 12:42 Freq: Status: Active Protocol: Document 06/24/21 11:15 HH (Rec: 06/24/21 12:56 HH [email or web address]) Current Condition History of Current Condition Onset Date 05/01/21 Current Complaints Sacral fx, Chronic LBP, radiating pain to L LE, difficulty in walking History of Current Condition Li is a 71yo female here s/p 8 weeks L5-S1 fusion for her R leg pain by surgeon Dr. Serna from [place] [facility] [place]. Pt was recovering well for the first 3 days but woke up with severe pain. She went to ER and was dx with sacral fx. Pt has been experiencing severe pain to her L buttock and leg since then with difficulty with any WB activities. She is currently approx 10 Gabapentin and 3 tylenol a day for pain control. She states she has been getting better and able to start walking again recently. She noticed she has new onset of numbness to L lateral thigh and calf since surgery. She currently has to bear weight mostly on RLE to walk to reduce pain. Prior to surgery, pt was very active and walked 3-5 miles a day with her dog and participated 3-4 times aquatic aerobics at the [facility]. Prior Treatments and Tests pt had a f/u with surgeon last week and she stated MD told her that her sacrum is healing properly. No precautions noted. ACDF C3-C7 with good recovery. Future Testing and Treatments Planned pt stated her surgeon might recommend surgical clean up if her symptoms will not improve. Treatment Goals Patient/Caregiver Goals 1. to be able to return daily walking up to 3-5 miles indepenently 2. to be able to complete house chores again 3. 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 PT-OP-C Subjective Start: 06/24/21 12:42 Freq: Status: Active Protocol: Document 08/25/21 13:47 HH (Rec: 08/25/21 14:31 HH [id number]) OP-PT Subjective Patient Comments Patient Comments My balance is getting better. Patient Reported Progress Improving PT-OP-F Manual Assessment Start: 06/24/21 12:42 Freq: Status: Active Protocol: Document 06/24/21 13:55 HH (Rec: 06/24/21 14:21 HH [email or web address]) Manual Assessments Soft Tissue Assessment Soft Tissue Mobility Assessment significant hypertonicity at L SIJ region, gluteal muscle group and gluteal medius PT-OP-G Mobility & Gait Start: 06/24/21 12:42 Freq: Status: Active Protocol: Document 06/24/21 13:55 HH (Rec: 06/24/21 14:21 HH [email or web address]) OP Gait Assessment Gait Deviations General Gait Pattern Antalgic,Decreased Stride Length,Decreased Feet Clearance Factors Limiting Gait Function Factors Limiting Gait Function Decreased Activity Tolerance, Decreased Strength,Limited Range of Motion,Pain,Poor Balance Comments Gait Comments pt is wobbly with her gait. She often loses balance during stance phase of LLE. She primarily WB via RLE d/t pain on LLE PT-OP-H Neuro Start: 06/24/21 12:42 Freq: Status: Active Protocol: Document 06/24/21 13:55 HH (Rec: 06/24/21 14:21 HH [email or web address]) Sensation Evaluation Gross Sensation Gross Sensation Left LE Impaired Sensation Description Numbness Dermatome Impairments L5 Comments Summary Comments decreased sensation to touch lateral thigh, medial chavira and lateral chavira and dorsal aspect of big toe and 2nd toe. Deep Tendon Reflex & Clonus Assessment Deep Tendon Reflex Bilateral Achilles Deep Tendon Reflex 2+ Normal Bilateral Patellar Deep Tendon Reflex 2+ Normal PT-OP-J Posture/Palpation/Skin Start: 06/24/21 12:42 Freq: Status: Active Protocol: Document 06/24/21 13:55 HH (Rec: 06/24/21 14:21 HH [email or web address]) Posture Evaluation Position Standing Evaluation View Anterior Weight Distribution Weight Shifted Right PT-OP-K Range of Motion Start: 06/24/21 12:42 Freq: Status: Active Protocol: Document 06/24/21 13:55 HH (Rec: 06/24/21 14:21 [email or web address]) Hip Goniometric Range of Motion Hip Right Active Hip ROM WFL Yes Straight Leg Raise 90 Left Active Hip ROM WFL No Testing Position Supine Straight Leg Raise 72 Comments radiating pain to L buttock and posterior thigh PT-OP-L Special Tests Start: 06/24/21 12:42 Freq: Status: Active Protocol: Document 06/24/21 13:55 HH (Rec: 06/24/21 14:21 [email or web address]) Special Tests Lumbar Spine Special Tests Straight Leg Raise Test Results +VE L Comments ASLR up to 70 with buttock pain Slump Test Results +VE L Comments pain at buttock and posterior thigh PT-OP-M Strength Start: 06/24/21 12:42 Freq: Status: Active Protocol: Document 06/24/21 13:55 HH (Rec: 06/24/21 14:21 [email or web address]) Hip Strength Hip Manual Muscle Testing Right Flexion (L2) 4+ Good+ Extension (S1) 4+ Good+ Abduction 4+ Good+ Adduction 4+ Good+ Left Flexion (L2) 4- Good- Extension (S1) 3+ Fair+ Abduction 3+ Fair+ Adduction 4- Good- Knee Strength Knee Manual Muscle Testing Right Flexion (S2) 4+ Good+ Extension (L3) 4+ Good+ Left Flexion (S2) 4+ Good+ Extension (L3) 4+ Good+ Ankle/Foot Strength Ankle and Foot Manual Muscle Testing Right Dorsiflexion (L4) 5 Normal Plantarflexion (S1) 5 Normal Inversion 5 Normal Eversion (S1) 5 Normal Left Dorsiflexion (L4) 4 Good Plantarflexion (S1) 4+ Good+ Inversion 5 Normal Eversion (S1) 5 Normal Toe Strength Toe Manual Muscle Testing Right Great Toe Flexion 5 Normal Left Great Toe Flexion 3+ Fair+ PT-OP-Q Treatments Start: 06/24/21 12:42 Freq: Status: Active Protocol: Document 08/25/21 13:47 HH (Rec: 08/25/21 14:31 [id number]) Gym Equipment Shuttle Balance red Reps/Duration 15 mins Comments improved protective right reaction today. Able to hold > 20-30 s without UE support. perturbation provided. staggered stance as well. Therapeutic Exercises Standing Exercises toe tap Side bilateral Reps/Minutes 6 inch box Comments for HEP step up Side bilateral Reps/Minutes 6 inch box Comments for HEP crab walk Side bilateral Equipment Used red band on knees. Reps/Minutes 20ft x 4 Neuro Re-Education Treatment Balance Activities hurdles Surface ground level Comments step to pattern first 4 rounds then step over pattern 4 rounds. blue foam Details weight shift then EC Surface blue foam Reps/Duration 8 Comments weight shift first with EO then with EC, with perturbations. PT-OP-T Assessment and Plan Start: 06/24/21 12:42 Freq: Status: Active Protocol: Document 08/25/21 13:47 (Rec: 08/25/21 14:31 [id number]) Physical Therapy Assessment Goals activity tolerance Impairment pt is unable to tolerate any walking and staning activities Short Term Goal (STG) 07/24 goal met pt has been going to pool fitness class and gym3 times a week. pt will show improved LLE strength and stability to normalize her gait with symmetrical stance phase bilaterally STG Duration 5 weeks Jail Goal (LTG) pt will show improved LLE strength and stability to be able to walk 3 miles x4 times a week with her dog. LTG Duration 10 weeks neural tension test Impairment significant radiating pain on LLE with ASLR and slump test Short Term Goal (STG) pt will have pain no more than 2 during ASLR and slump test to show reduce neural tension STG Duration 5 weeks Acid Bleacher Goal (LTG) 07/24 goal met pt does not have radiating symptoms during ASLR and slump test to show reduce neural tension LTG Duration 10 weeks Owestry Impairment pt scores 44 on Owestry Short Term Goal (STG) pt will score < 35 on Owestry to show improvements in mobility and strength STG Duration 5 weeks Acid Bleacher Goal (LTG) 07/24 goal met pt scores 14 today. pt will score < 25 on Owestry to show improvements in mobility and strength LTG Duration 10 weeks Assessment Summary Assessment pt reports she is pleased with the rehab progress and has good understanding of symptoms managment and exercise progression. She agrees to be DC from therapy today and continues [facility] Physical Therapy Plan Frequency and Duration Frequency of Treatment 2x/Week Duration of Treatment 10 weeks Plan of Care Start Date 06/24/21 Plan of Care End Date 09/07/21 Therapeutic Interventions Therapeutic Interventions Aquatic Therapy,Balance Training,Gait Training,Home Exercise Program,Joint Mobilizations,Manual Therapy, Neuromuscular Re-education, Patient/Caregiver Education, Self-Care/Home Management,Soft Tissue Mobilization,Taping, Therapeutic Activities, Therapeutic Exercises Modalities Cold Pack/Ice Massage,Electric Stimulation,Hot Packs, Infrared Therapy,Traction- Mechanical,Ultrasound Next Visit Focus/Plan Next Note Type Discharge Summary Next Visit Plan review eversion exercise. Print out 4-way ankle strengthening if approproate. LLE traction STM on glute, TFL nerve lien gilbert, figure 4
== END 2021-09-10 12:56 ==
LOC: PHYS 13:45
PROVIDERS: PCP Physician Assistant; Referring Provider Orthopaedic Surgery; Visit Provider Orthopaedic Surgery
DX: M48.061 Spinal stenosis, lumbar region without neurogenic claudication (principal)
CPT/HCPCS: 97110; 97112; 97116; 97140; 97162; 97530; 97535

== ENCOUNTER → 2021-12-22 11:54 | Outpatient (CLI) | payer MEDICARE, OTHER, SELFPAY ==
--- NOTE | 2021-12-22 | DI.MG.S_ITS ---
BILATERAL DIGITAL SCREENING MAMMOGRAM 3D/2D WITH CAD: 12/22/2021 CLINICAL: Routine screening. Comparison is made to exams dated: 10/27/2020 mammogram, 10/26/2019 mammogram, and 10/14/2018 mammogram - [facility]. There are scattered fibroglandular elements in both breasts. Current study was also evaluated with a Computer Aided Detection (CAD) system. No significant masses, calcifications, or other findings are seen in either breast. There has been no significant interval change. IMPRESSION: NEGATIVE There is no mammographic evidence of malignancy. A 1 year screening mammogram is recommended. This exam was interpreted at Station ID: [id number]. NOTE: For mammograms, a report in lay terms will be sent to the patient. Approximately 15% of breast malignancies will not be visualized mammographically. In the management of a palpable breast mass, a negative mammogram must not discourage biopsy of a clinically suspicious lesion. Electronically Signed By: Yovanny Sanches acr/sudhir:12/22/2021 12:54:59 letter sent: Normal Exam ACR BI-RADS Category 1: Negative 3341F
== END ==
PROVIDERS: PCP Physician Assistant; Referring Provider Physician Assistant; Visit Provider Physician Assistant
DX: Z12.31 Encounter for screening mammogram for malignant neoplasm of breast (principal)
CPT/HCPCS: 77063; 77067

== ENCOUNTER → 2022-12-29 14:24 | Outpatient (CLI) | payer MEDICARE, OTHER, SELFPAY ==
--- NOTE | 2022-12-29 | DI.MG.S_ITS ---
BILATERAL DIGITAL SCREENING MAMMOGRAM 3D/2D WITH CAD: 12/29/2022 CLINICAL: Routine screening. Comparison is made to exams dated: 12/22/2021 mammogram, 10/27/2020 mammogram, 10/26/2019 mammogram, and 10/14/2018 mammogram - [facility]. There are scattered areas of fibroglandular density in both breasts (category b / 25%-50% glandular tissue). Current study was also evaluated with a Computer Aided Detection (CAD) system. No significant masses, calcifications, or other findings are seen in either breast. There has been no significant interval change. IMPRESSION: NEGATIVE There is no mammographic evidence of malignancy. A 1 year screening mammogram is recommended. Based on the Tyrer Cuzick model (a risk assessment model) the patient's lifetime risk is 4.0% and her 10 year risk is 3.6%. According to the ACR, ACS, and NCCN guidelines, an annual breast MRI exam along with mammogram is recommended if the patient's lifetime risk is 20% or greater. This exam was interpreted at Station ID: [id number]. NOTE: For mammograms, a report in lay terms will be sent to the patient. Approximately 15% of breast malignancies will not be visualized mammographically. In the management of a palpable breast mass, a negative mammogram must not discourage biopsy of a clinically suspicious lesion. Electronically Signed By: Beni aguilar/sudhir:12/29/2022 15:00:18 letter sent: Normal Exam ACR BI-RADS Category 1: Negative 3341F
== END ==
PROVIDERS: PCP Physician Assistant; Referring Provider Physician Assistant; Visit Provider Physician Assistant
DX: Z12.31 Encounter for screening mammogram for malignant neoplasm of breast (principal)
CPT/HCPCS: 77063; 77067

== ENCOUNTER → 2023-06-15 15:17 | Outpatient (CLI) | payer MEDICARE, OTHER, SELFPAY ==
[2023-06-15 15:59] LABS: Hemoglobin 12.9 g/dL (12.0-16.0); Mean Corpuscular HGB Conc 33.8 % (30-36); Mean Corpuscular Hemoglobin 32.7 PG (26-34); Mean Corpuscular Volume 96.5 fL (80-100); Platelet Count 212 X10^3/uL (150-400); Red Blood Cell Count 3.94 X10^6/uL (4.0-5.2); Red Cell Distribution Width 13.4 % (11.6-14.8); White Blood Cell Count 7.5 X10^3/uL (4.5-11.0)
[2023-06-15 16:19] LABS: Alanine Aminotransferase 47 IU/L (<35); Albumin 4.5 g/dL (3.5-5.0); Albumin Globulin Ratio 1.5 (1.0-2.8); Alkaline Phosphatase 174 U/L (38-126); Aspartate Aminotransferase 138 IU/L (14-36); BUN Creatinine Ratio 28.4 (6-22); Bilirubin Total 0.7 mg/dL (0.2-1.3); Blood Urea Nitrogen 19 mg/dL (7-17); Calcium 9.3 mg/dL (8.4-10.2); Carbon Dioxide 27 mmol/L (22-32); Chloride 99 mmol/L (98-107); Cholesterol 205 mg/dL (140-199); Estimated Glomerular Filt Rate > 60 mL/min (>60); Globulin 3.1 g/dL (1.7-4.1); Glucose 99 mg/dL (80-110); HEMOLYSIS 16 (0-50); Potassium 4.4 mmol/L (3.4-5.1); Sodium 134 mmol/L (137-145); Total Protein 7.6 g/dL (6.3-8.2); Triglycerides 268 mg/dL (35-150)
[2023-06-15 16:28] LABS: HDL Cholesterol 112 mg/dL (40-60); LDL Cholesterol Calculated 39 mg/dL (<100)
[2023-06-15 16:34] LABS: Vitamin D 25 Hydroxy (D3) 39.9 ng/mL (30.0-100.0)
[2023-06-15 16:48] LABS: TSH w/ Reflex to FT4 2.39 uIU/mL (0.47-4.68)
[2023-06-15 17:07] LABS: Vitamin B12 931 pg/mL (239-931)
== END ==
PROVIDERS: PCP Internal Medicine; Referring Provider Internal Medicine; Visit Provider Internal Medicine
DX: E53.8 Deficiency of other specified B group vitamins (principal); E78.2 Mixed hyperlipidemia; E55.9 Vitamin D deficiency, unspecified; I10 Essential (primary) hypertension
CPT/HCPCS: 80053; 80061; 82306; 82607; 84443; 85027

== ENCOUNTER → 2023-07-02 14:34 | Outpatient (CLI) | payer MEDICARE, OTHER, SELFPAY ==
[2023-07-02 15:28] LABS: Influenza A - CEPHEID Flu A NEGATIVE (NEGATIVE); Influenza B - CEPHEID Flu B NEGATIVE (NEGATIVE); Respiratory Syncytial Virus Negative (Negative)
[2023-07-02 15:34] LABS: COVID-19 CEPHEID 4-PLEX PCR Negative (Negative)
== END ==
PROVIDERS: PCP Internal Medicine; Visit Provider Physician Assistant
DX: J02.9 Acute pharyngitis, unspecified (principal)
CPT/HCPCS: 0241U; 87070

== ENCOUNTER → 2023-12-16 10:55 | Outpatient (CLI) | payer MEDICARE, OTHER, SELFPAY ==
[2023-12-16 12:23] LABS: Hematocrit 39.5 % (36-46); Hemoglobin 13.3 g/dL (12.0-16.0); Mean Corpuscular HGB Conc 33.5 % (30-36); Mean Corpuscular Hemoglobin 31.9 PG (26-34); Mean Corpuscular Volume 95.1 fL (80-100); Platelet Count 201 X10^3/uL (150-400); Red Blood Cell Count 4.16 X10^6/uL (4.0-5.2); Red Cell Distribution Width 13.2 % (11.6-14.8); White Blood Cell Count 6.4 X10^3/uL (4.5-11.0)
[2023-12-16 12:42] LABS: Aspartate Aminotransferase 81 IU/L (14-36); BUN Creatinine Ratio 37.7 (6-22); Blood Urea Nitrogen 20 mg/dL (7-17); Calcium 9.9 mg/dL (8.4-10.2); Carbon Dioxide 28 mmol/L (22-32); Chloride 99 mmol/L (98-107); Cholesterol 176 mg/dL (140-199); Estimated Glomerular Filt Rate > 60 mL/min (>60); Glucose 100 mg/dL (80-110); HDL Cholesterol 109 mg/dL (40-60); HEMOLYSIS < 15 (0-50); LDL Cholesterol Calculated 46 mg/dL (<100); Potassium 4.7 mmol/L (3.4-5.1); Sodium 137 mmol/L (137-145); Triglycerides 104 mg/dL (35-150)
== END ==
PROVIDERS: PCP Internal Medicine; Referring Provider Internal Medicine; Visit Provider Internal Medicine
DX: E78.2 Mixed hyperlipidemia (principal); I10 Essential (primary) hypertension
CPT/HCPCS: 36415; 80048; 80061; 84450; 85027

== ENCOUNTER → 2023-12-31 12:51 | Outpatient (CLI) | payer MEDICARE, OTHER, SELFPAY ==
--- NOTE | 2023-12-31 | DI.MG.S_ITS ---
BILATERAL DIGITAL SCREENING MAMMOGRAM 3D/2D WITH CAD: 12/31/2023 CLINICAL: Routine screening. Comparison is made to exams dated: 12/29/2022 mammogram, 12/22/2021 mammogram, and 10/27/2020 mammogram - [facility]. There are scattered areas of fibroglandular density in both breasts (category b / 25%-50% glandular tissue). Current study was also evaluated with a Computer Aided Detection (CAD) system. No significant masses, calcifications, or other findings are seen in either breast. There has been no significant interval change. IMPRESSION: NEGATIVE There is no mammographic evidence of malignancy. A 1 year screening mammogram is recommended. Based on the Tyrer Cuzick model (a risk assessment model) the patient's lifetime risk is 3.7% and her 10 year risk is 3.7%. According to the ACR, ACS, and NCCN guidelines, an annual breast MRI exam along with mammogram is recommended if the patient's lifetime risk is 20% or greater. This exam was interpreted at Station ID: [id number]. NOTE: For mammograms, a report in lay terms will be sent to the patient. Approximately 15% of breast malignancies will not be visualized mammographically. In the management of a palpable breast mass, a negative mammogram must not discourage biopsy of a clinically suspicious lesion. Electronically Signed By: Smita gray/sudhir:01/02/2024 08:22:11 letter sent: Normal Exam ACR BI-RADS Category 1: Negative [id number]
== END ==
LOC: MAMMO 12:53
PROVIDERS: PCP Internal Medicine; Referring Provider Internal Medicine; Visit Provider Internal Medicine
DX: Z12.31 Encounter for screening mammogram for malignant neoplasm of breast (principal); R92.323 Mammographic fibroglandular density, bilateral breasts
CPT/HCPCS: 77063; 77067

== ENCOUNTER → 2024-11-03 11:43 | Outpatient (CLI) | payer MEDICARE, OTHER, SELFPAY ==
--- NOTE | 2024-11-03 12:45 | DI.RAD.S_ITS ---
PROCEDURE: XR CHEST 2V INDICATIONS: Cough TECHNIQUE: 2 views of the chest were acquired. COMPARISON: None. FINDINGS: Surgical changes and devices: None. Lungs and pleura: Lungs are clear. No pleural effusions or pneumothorax. Mediastinum: Mediastinal contours are normal. Heart size is normal. Bones and chest wall: No suspicious bony abnormalities. Soft tissues appear unremarkable. IMPRESSION: No acute cardiopulmonary abnormality is seen. Dictated by: Killian Gates M.D. on 11/04/2024 at 9:28 Approved by: Killian Gates M.D. on 11/04/2024 at 9:28
== END ==
PROVIDERS: PCP Internal Medicine; Referring Provider Nurse Practitioner Family; Visit Provider Nurse Practitioner Family
DX: R05.9 Cough, unspecified (principal)
CPT/HCPCS: 71046

== ENCOUNTER → 2024-12-17 15:21 | Outpatient (CLI) | payer MEDICARE, OTHER, SELFPAY ==
[2024-12-17 16:13] LABS: Hematocrit 36.7 % (36-46); Hemoglobin 12.3 g/dL (12.0-16.0); Mean Corpuscular HGB Conc 33.4 % (30-36); Mean Corpuscular Hemoglobin 32.2 PG (26-34); Mean Corpuscular Volume 96.3 fL (80-100); Platelet Count 211 X10^3/uL (150-400); Red Blood Cell Count 3.81 X10^6/uL (4.0-5.2); Red Cell Distribution Width 13.9 % (11.6-14.8); White Blood Cell Count 9.5 X10^3/uL (4.5-11.0)
[2024-12-17 16:33] LABS: Alanine Aminotransferase 26 IU/L (<35); Albumin 4.5 g/dL (3.5-5.0); Albumin Globulin Ratio 1.7 (1.0-2.8); Alkaline Phosphatase 140 U/L (38-126); Aspartate Aminotransferase 52 IU/L (14-36); BUN Creatinine Ratio 27.4 (6-22); Bilirubin Total 0.9 mg/dL (0.2-1.3); Blood Urea Nitrogen 17 mg/dL (7-17); Calcium 9.7 mg/dL (8.4-10.2); Carbon Dioxide 29 mmol/L (22-32); Chloride 99 mmol/L (98-107); Cholesterol 195 mg/dL (140-199); Estimated Glomerular Filt Rate > 60 mL/min (>60); Globulin 2.7 g/dL (1.7-4.1); Glucose 100 mg/dL (80-110); HEMOLYSIS < 15 (0-50); Potassium 4.9 mmol/L (3.4-5.1); Sodium 133 mmol/L (137-145); Total Protein 7.2 g/dL (6.3-8.2); Triglycerides 100 mg/dL (35-150)
[2024-12-17 16:40] LABS: HDL Cholesterol 153 mg/dL (40-60); LDL Cholesterol Calculated 22 mg/dL (<100)
[2024-12-17 17:03] LABS: Ferritin 107 ng/mL (11-264)
[2024-12-19 00:14] LABS: HBsAg Screen Negative (Negative); Hepatitis A Antibody IgM Negative (Negative); Hepatitis B Core Antibody IgM Negative (Negative); Hepatitis C Antibody Non Reactive (Non Reactive)
== END ==
PROVIDERS: PCP Internal Medicine; Referring Provider Internal Medicine; Visit Provider Internal Medicine
DX: E78.2 Mixed hyperlipidemia (principal); R79.89 Other specified abnormal findings of blood chemistry; I10 Essential (primary) hypertension; E61.1 Iron deficiency; Z20.9 Contact with and (suspected) exposure to unspecified communicable disease
CPT/HCPCS: 36415; 80053; 80061; 80074; 82728; 85027

== ENCOUNTER → 2024-12-26 07:29 | Outpatient (CLI) | payer MEDICARE, OTHER, SELFPAY ==
--- NOTE | 2024-12-26 07:30 | DI.US.S_ITS ---
PROCEDURE: US ABDOMEN LIMITED INDICATIONS: elevated LFTs TECHNIQUE: Real-time scanning was performed of the abdominal and retroperitoneal organs, with image documentation. COMPARISON: None. FINDINGS: Liver: Echogenic liver with posterior attenuation and loss of portal wall echogenicity. Gallbladder: Absent. Biliary ducts: Intrahepatic bile ducts are non-dilated. Extrahepatic bile duct caliber measures 13 mm. Normal is 6-7 mm or less in diameter, or 10 mm or less post-cholecystectomy. Pancreas: Visualized portions of the pancreas are sonographically normal. Miscellaneous: No free abdominal fluid. IMPRESSION: Hepatic steatosis. In the absence of alcohol use or other confounding factors, elevated LFTs may indicate qudkojagj-hnbujtmdkjg-zsxiokahwt steatohepatitis (MASH). Extrahepatic biliary dilation up to 13 mm. This is greater than expected in a post cholecystectomy state. Findings may indicate biliary dyskinesia. This could be confirmed with HIDA scan with CCK if necessary. Dictated by: Rohan Mcleod M.D. on 12/26/2024 at 16:37 Approved by: Rohan Mcleod M.D. on 12/26/2024 at 16:39
== END ==
PROVIDERS: PCP Internal Medicine; Referring Provider Internal Medicine; Visit Provider Internal Medicine
DX: K76.0 Fatty (change of) liver, not elsewhere classified (principal); K83.8 Other specified diseases of biliary tract; R79.89 Other specified abnormal findings of blood chemistry; Z90.49 Acquired absence of other specified parts of digestive tract
CPT/HCPCS: 76705

== ENCOUNTER → 2025-01-17 16:15 | Outpatient (CLI) | payer MEDICARE, OTHER, SELFPAY ==
--- NOTE | 2025-01-17 16:17 | DI.MG.S_ITS ---
MM screening mammo BI: 01/17/2025. BI-RADS: 1 CLINICAL: 74-year old female for bilateral screening mammogram. Tyrer-Cuzick lifetime risk of 2.7%. No personal or first-degree family history of breast cancer. PRIOR EXAMS 12/31/2023, 12/29/2022, 12/22/2021, 10/27/2020, 10/26/2019, 10/14/2018, 09/29/2017, 09/20/2016, 09/18/2015. MAMMOGRAPHY TECHNIQUE: 2D and 3D (tomosynthesis) digital mammographic views obtained, with additional images as needed for full coverage. Current study was also evaluated with a Computer Aided Detection (CAD) system. DENSITY B. There are scattered areas of fibroglandular density. MAMMOGRAPHY FINDINGS Bilateral: No suspicious mass, asymmetry, microcalcification, or other abnormality seen. No significant change from comparison. IMPRESSION: * No evidence of malignancy. RECOMMENDATIONS Bilateral * Annual screening mammography. OVERALL ASSESSMENT CATEGORY BI-RADS-1: Negative. The [employer] recommends annual screening mammography beginning at age 40 for women with average risk of breast cancer. ELECTRONICALLY SIGNED: Sari Robert M.D. on 01/18/2025 at 10:11:52 AM PT Interpreting Station ID: [id number]
== END ==
PROVIDERS: PCP Internal Medicine; Referring Provider Internal Medicine; Visit Provider Internal Medicine
DX: Z12.31 Encounter for screening mammogram for malignant neoplasm of breast (principal)
CPT/HCPCS: 77063; 77067

== ENCOUNTER → 2025-10-23 13:32 | Outpatient (CLI) | payer MEDICARE, OTHER, SELFPAY ==
--- NOTE | 2025-10-23 13:34 | DI.MRI.S_ITS ---
PROCEDURE: MR SHOULDER RT WO CON INDICATIONS: eval RTC TECHNIQUE: Noncontrast oblique coronal T2 fast spin echo with fat saturation, oblique sagittal T1 spin echo and T2 fast spin echo with fat saturation, axial T1 spin echo and T2 fast spin echo with fat saturation through the shoulder. COMPARISON: [facility] [place], CR, XR SHOULDER 2+ VIEWS RIGHT, 08/08/2024, 15:16. FINDINGS: Image quality: Excellent. Rotator cuff: Severe tendinosis of the supraspinatus and infraspinatus. There is low grade articular sided tear at the mid footprint of the supraspinatus (08:10). There is large delaminating cyst versus paralabral cyst inferior to the myotendinous junction of the supraspinatus, measuring 1.5 x 2.4 by 2.5 cm (axial by craniocaudal dimension). No tear of the infraspinatus. The teres minor is unremarkable. The subscapularis is unremarkable. Mild muscle edema of the supraspinatus. No fatty atrophy. Bones and bursae: Mild degenerative changes of the acromioclavicular joint. Type 1 acromion. No os acromiale. Mild subacromial/subdeltoid bursitis. Mild subchondral cystic changes at the posterior greater tuberosity, reactive. No acute fracture. Severe degenerative change of the glenohumeral joint with complete chondral denudation of the humeral head and the glenoid. Marked diffuse marrow edema of the glenoid, favoring degenerative. No significant glenoid retroversion. Capsule and soft tissues: Circumferential labral tear. Severe tenosynovitis of the extra-articular biceps tendon. Moderate tendinosis of the distal intra-articular biceps tendon. Small glenohumeral effusion. Moderate subcoracoid bursitis. No intra-articular body. IMPRESSION: 1. Severe tendinosis supraspinatus and infraspinatus. Low-grade tear of the supraspinatus. 2. Large delaminating cyst versus paralabral cyst inferior to the supraspinatus. 3. Mild degenerative changes of the acromioclavicular joint. 4. Severe degenerative change of the glenohumeral joint with circumferential labral tear. 5. Severe tenosynovitis of the extra-articular biceps tendon. 6. Moderate tendinosis of the intra-articular biceps tendon. 7. Moderate subcoracoid bursitis. Dictated by: Lena Hsu M.D. on 10/23/2025 at 17:02 Approved by: Lena Hsu M.D. on 10/23/2025 at 17:13
== END ==
LOC: MRI 13:33
PROVIDERS: PCP Internal Medicine; Referring Provider Orthopaedic Surgery; Visit Provider Orthopaedic Surgery
DX: M75.41 Impingement syndrome of right shoulder (principal); M75.111 Incomplete rotator cuff tear or rupture of right shoulder, not specified as traumatic; M65.911 Unspecified synovitis and tenosynovitis, right shoulder; M75.51 Bursitis of right shoulder
CPT/HCPCS: 73221